=== PATIENT | female | born 1985 | race Caucasian/White ===

== ENCOUNTER 2023-06-21 14:51 | Emergency (ER) | payer OTHER, SELFPAY ==
[2023-06-21 15:00] VITALS: BP 155/108; PULSE 99; RESP 16; TEMP 37.2; O2SAT 998; BMI 43.3
[2023-06-21 15:09] VITALS: O2SAT 98
--- NOTE | 2023-06-21 15:17 | XR_ITS ---
The [address] [address] Patient Name: SARAH MATTHEWS MRN: [id number] date: 1985 Sex: F Assigned Patient Location: ED.MAIN Current Patient Location: Accession/Order Number: [id number] Exam Date: 06/21/2023 15:45 Report Date: 06/21/2023 16:47 At the request of: NIEVES HEATH Procedure: XR chest 1V EXAM: XR chest 1V HISTORY: cough COMPARISON: 08/08/2020 TECHNIQUE: Chest X-ray AP, 1 view FINDINGS: Support devices: None. Lungs/pleura: No consolidation, effusion, or pneumothorax. Heart and mediastinum: Normal contours. Bones: No acute abnormality identified. XR/XR chest 1V Impression: No radiographic evidence of acute cardiopulmonary process. Electronically authenticated by: FARSHAD MELENDEZ Date: 06/21/2023 16:47
[2023-06-21 15:32] LABS: Influenza Virus A Antigen Negative; Influenza Virus B Antigen Negative; Internal Control Within Normal Limits; SARS-CoV-2 Ag NEGATIVE (NEGATIVE)
[2023-06-21 15:53] VITALS: PULSE 89; O2SAT 95
[2023-06-21] MEDS: IPRATROPIUM/ALBUTEROL SULFATE 3 ML AMPUL.NEB IH (15:53)
[2023-06-21] MEDS: PREDNISONE 20 MG TABLET 40 MG PO (15:58)
--- NOTE | 2023-06-21 16:26 | ED_ITS ---
HPI - URI/Sore Throat General Chief Complaint: Upper Respiratory Infection Stated Complaint: COUGH Time Seen by Provider: 06/21/23 15:12 Source: patient History of Present Illness HPI Narrative: 38-year-old female presents here chief complaint of cough congestion. She states she's had symptoms cough congestion her 1st for cough causing her to gag and almost vomited due to harsh cough. She states she's had the symptoms for the past two weeks. Patient is currently afebrile. She states she had a inhaler in the past and still has a an albuterol inhaler at home.She is afebrile nontoxic. She is not hypoxic Patient denies smoking but states she is a remote family members and smoke. Related Data Previous Rx's Medication Instructions Recorded azithromycin 250 mg tablet See Rx Instructions PO .COMPLEX #6 06/21/23 (Zithromax Z-Dimas) tabs benzonatate 200 mg capsule 200 mg PO TID PRN cough #10 caps 06/21/23 prednisone 50 mg tablet 50 mg PO DAILY 3 days #3 tabs 06/21/23 Allergies Allergy/AdvReac Type Severity Reaction Status Date / Time No Known Drug Allergies Allergy Verified 06/21/23 15:05 Review of Systems ROS Narrative All Systems are negative except as noted/marked.All systems reviewed and otherwise negative Exam Narrative Exam Narrative: Nurses note and vital signs reviewed and patient is not hypoxic. General: The patient appears well and in no apparent distress. Patient is resting comfortably on cart. Skin: Warm, dry, no pallor noted. There is no rash noted. Head: Normocephalic, atraumatic Eye: Normal conjunctiva, no drainage, EOMI. PERRL Ears, Nose, Mouth, and Throat: oral mucosa is moist. Nares patent. Mouth without vesicles. Ear canals patent. Tm's without Erythema Cardiovascular: Regular Rate and Rhythm Respiratory: dry nonproductive cough, scattered expiratory wheezing Patient is in no distress, no accessory muscle use, Musculoskeletal: The patient has no evidence of calf tenderness, no pitting edema, symmetrical pulses noted bilaterally Neurological: A&O x4, normal speech Psychiatric: Cooperative Constitutional Vital Signs, click to edit/add: Last Vital Signs Temp 98.9 F 06/21/23 15:00 Pulse 89 06/21/23 15:53 Resp 16 06/21/23 15:00 BP 155/108 H 06/21/23 15:00 Pulse Ox 95 06/21/23 15:53 O2 Del Method Room Air 06/21/23 15:09 Course Vital Signs Vital signs: Vital Signs Temperature 98.9 F 06/21/23 15:00 Pulse Rate 99 H 06/21/23 15:00 Respiratory Rate 16 06/21/23 15:00 Blood Pressure 155/108 H 06/21/23 15:00 Pulse Oximetry 998 H 06/21/23 15:00 Oxygen Delivery Method Room Air 06/21/23 15:00 Temperature 98.9 F 06/21/23 15:00 Pulse Rate 89 06/21/23 15:53 Respiratory Rate 16 06/21/23 15:00 Blood Pressure 155/108 H 06/21/23 15:00 Pulse Oximetry 95 06/21/23 15:53 Oxygen Delivery Method Room Air 06/21/23 15:09 MDM - URI/Sore Throat MDM Narrative Medical decision making narrative: Patient presents today with upper respiratory cough congestion. Examination con sistent with bronchitis. X-ray shows no acute pneumonia. Patient's had the symptoms for greater than two weeks. She was medicated here with a DuoNeb breathing treatment and prednisone. She'll be discharged home with prescription of prednisone and Tessalon Perles. Patient is exposed to secondhand smoke she will be given a Z-Dimas and she's had the symptoms for greater than ten days. Patient verbalizes understanding resupply of care.Patient did have flu swab Coban swab obtained today which were negative. Differential Diagnosis Differential diagnosis: Likely upper respiratory infection, influenza and pharyngitis Medical Records Attestation: I reviewed the patient's medical records. Lab Data Attestation: I reviewed the patient's lab results. Labs: Lab Results 06/21/23 Range/Units 15:05 SARS-CoV-2 (PCR) Negative (NEGATIVE) Influenza Type A Ag Negative Influenza Type B Ag Negative Imaging Data Chest x-ray: Attestation: I have reviewed the pertinent imaging results. My impression: No active disease Discharge Plan Discharge Chief Complaint: Upper Respiratory Infection Clinical Impression: Upper respiratory infection, Bronchitis Patient Disposition: Home, Self-Care Time of Disposition Decision: 16:24 Condition: Good Prescriptions / Home Meds: New prednisone 50 mg tablet 50 mg PO DAILY 3 Days Qty: 3 0RF benzonatate 200 mg capsule 200 mg PO TID PRN (Reason: cough) Qty: 10 0RF azithromycin [Zithromax Z-Dimas] 250 mg tablet See Rx Instructions .ROUTE .COMPLEX Qty: 6 0RF Rx Instructions: For 250 mg dose pack: take 500 mg today (day 1), then 250 mg for 4 days (days 2-5) Instructions: Upper Respiratory Infection (ED), Acute Bronchitis (ED) Stand Alone Forms: Portal Instructions Referrals: Erasmo Tovar MD [Primary Care Provider] - 1 week
[2023-06-22 15:59] LABS: SARS-CoV-2 NAA NOT DETECTED (NOT DETECTE)
== END 2023-06-21 16:32 | disposition home or self-care (01) ==
PROVIDERS: Physician Assistant; Emergency Provider Emergency Medicine Emergency Medical Services; PCP Family Medicine
DX: J06.9 Acute upper respiratory infection, unspecified (principal); J40 Bronchitis, not specified as acute or chronic; Z20.822 Contact with and (suspected) exposure to COVID-19
CPT/HCPCS: 71045; 87635; 87804; 87811; 94640; 99284; J7512

== ENCOUNTER 2023-07-30 21:50 | Emergency (ER) | payer OTHER, SELFPAY ==
[2023-07-30] VITALS (15 sets, daily range): BP systolic 117–163; BP diastolic 82–106; PULSE 108–123; RESP 18–29; TEMP 36.8; O2SAT 95–98; BMI 43.5
--- OUTSIDE RECORDS SUMMARY | 2023-07-30 21:58 | XMS_ITS | CCD ---
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 [facility] Chart notes attached Questions completed Waiting for determination Elliott Prior Communications Engineer Endocrinology and Metabolism [place] Allergies As of Date: 07/14/2023 (No Known Allergies) Date Reviewed: 05/26/2023 Reviewed by: Micaela Laura MD - Fully Assessed Reason for Visit: Insurance Authorization [[id number]] Cmt: pasireotide pamoate (SIGNIFOR LAR) 10 mg susr Prescriptions as of 07/14/2023 - somatropin (GENOTROPIN) 0.6 mg/0.25 mL injection Inject 0.6 mg subcutaneously once daily. - pasireotide pamoate (SIGNIFOR LAR) 10 mg susr Inject 10 mg once every 4 weeks by IM injection - dexAMETHasone (DECADRON) 1 mg tablet Take dexamethasone 1 mg at bedtime and then get labs done the next morning - semaglutide, weight loss, (WEGOVY) 0.25 mg/0.5 mL pen injector Inject 0.5 mL subcutaneously one time a week. BMI 42.45 - lamoTRIgine (LAMICTAL) 25 mg tablet Take 4 tablets by mouth daily at bedtime. - busPIRone (BUSPAR) 7.5 mg tablet Take 2 tablets by mouth twice daily. - levothyroxine (SYNTHROID) 150 mcg tablet TAKE ONE TABLET BY MOUTH ONCE DAILY ON EMPTY STOMACH - Insulin [place], Disposable, (BD ULTRAFINE III MINI PEN) 31 gauge x 3/16 Use with genotropin Pen daily - osilodrostat (ISTURISA) 5 mg tablet 15 mg twice a day - Desogestrel-Ethinyl Estradiol (APRI) 0.15-0.03 mg per tablet Take 1 tablet by mouth once daily. - ketoconazole (NIZORAL) 2 % shampoo - PARoxetine (PAXIL) 20 mg tablet Take 20 mg by mouth once daily. - iv contrast (will be provided with radiology test) MRI Pituitary Inject, intravenously, once for 1 dose. No IV access, insert saline lock prior to the beginning of sedation, infusion, injection of imaging exam. Discontinue saline lock post exam. If Pt. has a central line or IVAD, may access for administration according to line specific nursing protocol. Once exam is complete flush line and de-access according to line specific nursing protocol in the MR contrast administration guidelines link. - MULTIVITAMIN ORAL Take 1 tablet by mouth once daily. Meds Comments as of 10/25/2015: 15 mg twice daily. Study drug [id number] Dose increased to 30 mg daily on 10/25/2015. 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/31/2014 S/P selective transsphenoidal pituitary adenome*12/31/2014 Status post gamma knife treatment [Z92.3] 12/31/2014 Examination of participant in clinical trial [Z*10/25/2015 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.8] 10/07/2016 KRIS (generalized anxiety disorder) [F41.1] 07/23/2021 Marijuana smoker [F12.90] 07/23/2021 Cysts of both ovaries [N83.201, N83.202] 07/25/2021 07/25/2021 Low grade squamous intraepithelial lesion (LGSI*09/17/2021 Encounter Status:Closed by ELLIOTT OLIVO on 07/14/23 [facility] 06-27-2023 CNPN Telephone (ENDOMN) ANGELA NGUYEN ([id number]) 1985 Date Time Provider Department 06/27/23 MICAELA LAURA ENDOMN During your visit today, we recorded the following information about you: Bright Day 06/27/2023 10:58 AM Signed [employer] rep called requesting a PA for Signifor LAR 10 mg via [employer] [phone] Mills# [id number] Bright [employer]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 Allergies As of Date: 06/27/2023 (No Known Allergies) Date Reviewed: 05/26/2023 Reviewed by: Micaela Laura MD - Fully Assessed Reason for Visit: Insurance Authorization [[id number]] Cmt: Signifor LAR 10 mg Prescriptions as of 07/01/2023 - somatropin (GENOTROPIN) 0.6 mg/0.25 mL injection Inject 0.6 mg subcutaneously once daily. - pasireotide pamoate (SIGNIFOR LAR) 10 mg susr Inject 10 mg once every 4 weeks by IM injection - dexAMETHasone (DECADRON) 1 mg tablet Take dexamethasone 1 mg at bedtime and then get labs done the next morning - semaglutide, weight loss, (WEGOVY) 0.25 mg/0.5 mL pen injector Inject 0.5 mL subcutaneously one time a week. BMI 42.45 - lamoTRIgine (LAMICTAL) 25 mg tablet Take 4 tablets by mouth daily at bedtime. - busPIRone (BUSPAR) 7.5 mg tablet Take 2 tablets by mouth twice daily. - levothyroxine (SYNTHROID) 150 mcg tablet TAKE ONE TABLET BY MOUTH ONCE DAILY ON EMPTY STOMACH - Insulin [place], Disposable, (BD ULTRAFINE III MINI PEN) 31 gauge x 3/16 Use with genotropin Pen daily - osilodrostat (ISTURISA) 5 mg tablet 15 mg twice a day - Desogestrel-Ethinyl Estradiol (APRI) 0.15-0.03 mg per tablet Take 1 tablet by mouth once daily. - ketoconazole (NIZORAL) 2 % shampoo - PARoxetine (PAXIL) 20 mg tablet Take 20 mg by mouth once daily. - iv contrast (will be provided with radiology test) MRI Pituitary Inject, intravenously, once for 1 dose. No IV access, insert saline lock prior to the beginning of sedation, infusion, injection of imaging exam. Discontinue saline lock post exam. If Pt. has a central line or IVAD, may access for administration according to line specific nursing protocol. Once exam is complete flush line and de-access according to line specific nursing protocol in the MR contrast administration guidelines link. - MULTIVITAMIN ORAL Take 1 tablet by mouth once daily. Meds Comments as of 10/25/2015: 15 mg twice daily. Study drug [id number] Dose increased to 30 mg daily on 10/25/2015. 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/31/2014 S/P selective transsphenoidal pituitary adenome*12/31/2014 Status post gamma knife treatment [Z92.3] 12/31/2014 Examination of participant in clinical trial [Z*10/25/2015 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 PA needed for Genotropin. I will start PA once script is signed. Refill encounter sent to Dr. Dov Pierre. Peggy [place] RN 06/27/2023 3:07 PM Signed Script signed by Dr. Dov Pierre. PA for Genotropin miniquick completed. I will fax once signed. Genotropin SMN will be completed once approved. Peggy [place] RN 07/01/2023 2:03 PM Signed PA completed on Cover My Meds: Peggy [place] RN 07/02/2023 1:47 PM Signed Genotropin approved by [employer]. Approval dates: 07/01/23 to 09/05/23. Pt instructed to notify us two weeks before the expiration so that we may submit for another preauth. Allergies As of Date: 06/26/2023 (No Known Allergies) Date Reviewed: 05/26/2023 Reviewed by: Micaela Laura MD - Fully Assessed Reason for Visit: 2023 growth hormone [Other] Prescriptions as of 07/02/2023 - somatropin (GENOTROPIN) 0.6 mg/0.25 mL injection Inject 0.6 mg subcutaneously once daily. - pasireotide pamoate (SIGNIFOR LAR) 10 mg susr Inject 10 mg once every 4 weeks by IM injection - dexAMETHasone (DECADRON) 1 mg tablet Take dexamethasone 1 mg at bedtime and then get labs done the next morning - semaglutide, weight loss, (WEGOVY) 0.25 mg/0.5 mL pen injector Inject 0.5 mL subcutaneously one time a week. BMI 42.45 - lamoTRIgine (LAMICTAL) 25 mg tablet Take 4 tablets by mouth daily at bedtime. - busPIRone (BUSPAR) 7.5 mg tablet Take 2 tablets by mouth twice daily. - levothyroxine (SYNTHROID) 150 mcg tablet TAKE ONE TABLET BY MOUTH ONCE DAILY ON EMPTY STOMACH - Insulin [place], Disposable, (BD ULTRAFINE III MINI PEN) 31 gauge x 16 Use with genotropin Pen daily - osilodrostat (ISTURISA) 5 mg tablet 15 mg twice a day - Desogestrel-Ethinyl Estradiol (APRI) 0.15-0.03 mg per tablet Take 1 tablet by mouth once daily. - ketoconazole (NIZORAL) 2 % shampoo - PARoxetine (PAXIL) 20 mg tablet Take 20 mg by mouth once daily. - iv contrast (will be provided with radiology test) MRI Pituitary Inject, intravenously, once for 1 dose. No IV access, insert saline lock prior to the beginning of sedation, infusion, injection of imaging exam. Discontinue saline lock post exam. If Pt. has a central line or IVAD, may access for administration according to line specific nursing protocol. Once exam is complete flush line and de-access according to line specific nursing protocol in the MR contrast administration guidelines link. - MULTIVITAMIN ORAL Take 1 tablet by mouth once daily. Meds Comments as of 10/25/2015: 15 mg twice daily. Study drug [id number] Dose increased to 30 mg daily on 10/25/2015. 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/31/2014 S/P selective transsphenoidal pituitary adenome*12/31/2014 Status post gamma knife treatment [Z92.3] 12/31/2014 Examination of participant in clinical trial [Z*10/25/2015 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.8] 10/07/2016 KRIS (generalized anxiety disorder) [F41.1] 07/23/2021 Marijuana smoker [F12.90] 07/23/2021 Cysts of both ovaries [N83.201, N83.202] 07/25/2021 07/25/2021 Low grade squamous intraepithelial lesion (LGSI*09/17/2021 Encounter Status:Closed by PEGGY ALLEN on 06/27/23 Normal [facility] CNPN Telephone (ENDOSO) PATRICKANGELA Clay ([id number]) 1985 F Date Time Provider Department 06/26/23 MICAELA LAURA During your visit today, we recorded the following information about you: Allergies As of Date: 06/26/2023 (No Known Allergies) Date Reviewed: 05/26/2023 Reviewed by: Micaela Laura MD - Fully Assessed Prescriptions as of 07/15/2023 - somatropin (GENOTROPIN) 0.6 mg/0.25 mL injection Inject 0.6 mg subcutaneously once daily. - pasireotide pamoate (SIGNIFOR LAR) 10 mg susr Inject 10 mg once every 4 weeks by IM injection - dexAMETHasone (DECADRON) 1 mg tablet Take dexamethasone 1 mg at bedtime and then get labs done the next morning - semaglutide, weight loss, (WEGOVY) 0.25 mg/0.5 mL pen injector Inject 0.5 mL subcutaneously one time a week. BMI 42.45 - lamoTRIgine (LAMICTAL) 25 mg tablet Take 4 tablets by mouth daily at bedtime. - busPIRone (BUSPAR) 7.5 mg tablet Take 2 tablets by mouth twice daily. - levothyroxine (SYNTHROID) 150 mcg tablet TAKE ONE TABLET BY MOUTH ONCE DAILY ON EMPTY STOMACH - Insulin [place], Disposable, (BD ULTRAFINE III MINI PEN) 31 gauge x 3/16 Use with genotropin Pen daily - osilodrostat (ISTURISA) 5 mg tablet 15 mg twice a day - Desogestrel-Ethinyl Estradiol (APRI) 0.15-0.03 mg per tablet Take 1 tablet by mouth once daily. - ketoconazole (NIZORAL) 2 % shampoo - PARoxetine (PAXIL) 20 mg tablet Take 20 mg by mouth once daily. - iv contrast (will be provided with radiology test) MRI Pituitary Inject, intravenously, once for 1 dose. No IV access, insert saline lock prior to the beginning of sedation, infusion, injection of imaging exam. Discontinue saline lock post exam. If Pt. has a central line or IVAD, may access for administration according to line specific nursing protocol. Once exam is complete flush line and de-access according to line specific nursing protocol in the MR contrast administration guidelines link. - MULTIVITAMIN ORAL Take 1 tablet by mouth once daily. Meds Comments as of 10/25/2015: 15 mg twice daily. Study drug [id number] Dose increased to 30 mg daily on 10/25/2015. 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/31/2014 S/P selective transsphenoidal pituitary adenome*12/31/2014 Status post gamma knife treatment [Z92.3] 12/31/2014 Examination of participant in clinical trial [Z*10/25/2015 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.8] 10/07/2016 KRIS (generalized anxiety disorder) [F41.1] 07/23/2021 Marijuana smoker [F12.90] 07/23/2021 Cysts of both ovaries [N83.201, N83.202] 07/25/2021 07/25/2021 Low grade squamous intraepithelial lesion (LGSI*09/17/2021 Encounter Status:Closed by PEGGY ALLEN on 07/15/23 [facility] 06-19-2023 [facility] HNO ID: [id number] Author: BLESSED COWAN RT(R) Service: Radiology Author Type: Sheet Metal Apprentice Type: Allied Health Filed: 06/19/2023 15:48 Note Text: Radiology Service Progress Note PATIENT NAME: Angela Nguyen DATE OF SERVICE: June 19, 2023 TIME: 3:47 PM PATIENT IDENTITY VERIFICATION COMPLETED USING TWO (2) IDENTIFIERS: Name and Date of confirmed by patient verbally and Name and Date of confirmed by identification band. FALL SCREENING: Has the patient had 2 falls in the last year or 1 fall with injury or currently using an Ambulatory Assistive Device (Walker, Cane, Wheelchair, Crutches, etc.)? No PATIENT GENDER DATA: Female. status: : No status: NO. PATIENT RELEVANT IMPLANT DATA REVIEWED: Yes RADIOLOGY DEPARTMENT: MR; Exam(s) Completed: Head: Pituitary With dynamic cor post PERIPHERAL IV DATA: Site assessment: Clean,Dry and Intact, Site disposition Discontinued SIGNED BY: Damon SIMMONS R RT Lizbet(R) June 19, 2023 3:47 PM [facility] MRI PITUITARY WO/W IVCONon 0 06-19-2023 MRI PITUITARY WO/W IVCON * * *Final Report* * * DATE OF EXAM: Jun 19 2023 4:34PM [facility] 0314 - MRI PITUITARY WO/W IVCON / PROCEDURE REASON: multiple diagnoses * * * * Physician Interpretation * * * * EXAMINATION: MRI PITUITARY WO/W IVCON CLINICAL HISTORY: 38 year old female with 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 TECHNIQUE: High resolution sagittal and coronal T1, coronal T2, and gadolinium enhanced, fat-suppressed sagittal and coronal T1-weighted images of the pituitary region. Contrast: 10 mL Dotarem IV COMPARISON: Pituitary MRI 03/06/2020. 10/05/2018. 04/04/2018. 04/02/2017. RESULT: Postop Changes: There are unchanged postoperative findings related to transsphenoidal surgery of a prior pituitary lesion. There is unchanged partially empty sella. Adenohypophysis: The adenohypophysis is uniformly hypointense on T1 and T2 and uniformly enhances following gadolinium administration. No evidence of an underlying mass. Neurohypophysis: The posterior pituitary gland is present and normal in size and location. The infundibulum is intact and normal in appearance. Suprasellar Region: No evidence of a suprasellar mass. The optic apparatus is normal in appearance. Cavernous Sinuses: The cavernous sinuses are normal in appearance. A normal flow void is noted in the carotid siphons suggesting patency by spin echo criteria. Brain Parenchyma: The overlying hypothalamus is normal in appearance. The visualized parenchyma is otherwise normal in signal intensity and morphology. Skull Base: No evidence of a marrow replacement process in the underlying skull base. IMPRESSION: No recurrent neoplasm. [place] Cleaner: PSCB Transcribe Date/Time: Jun 19 2023 5:40P Dictated by : JAX WALLACE MD This examination was interpreted and the report reviewed and electronically signed by: JAX WALLACE MD on Jun 19 2023 5:44PM EST [id number] Normal [facility] NURSING PROGon 06-19-2023 NURSING PROG HNO ID: [id number] Author: REX SKINNER RN Service: Radiology Author Type: Registered Nurse Type: Nursing Progress Note Filed: 06/19/2023 15:38 Note Text: Radiology Service Progress Note DATE OF SERVICE: June 19, 2023 TIME: 3:19 PM PATIENT WEIGHT: 245 LBS PATIENT IDENTITY VERIFICATION COMPLETED USING TWO (2) STANDARD IDENTIFIERS: Name and Date of confirmed by patient verbally and Name and Date of confirmed by identification band. FALL SCREENING: Has the patient had 2 falls in the last year or 1 fall with injury or currently using an Ambulatory Assistive Device (Walker, Cane, Wheelchair, Crutches, etc.)? No PATIENT GENDER DATA: Female. status: : No status: NO. ALLERGIES: Reviewed and unchanged CONTRAST ALLERGY: No EXAM: MRI - CONTRAST TYPE: GROUP II IV SITE: Ambulatory: A peripheral IV was started in the Right forearm with a Angio cath: 22 gauge. IV SITE APPEARANCE: Clean,Dry and Intact SIGNATURE: Rex Skinner RN PATIENT NAME: Angela Nguyen DATE: June 19, 2023 TIME: 3:19 PM [facility] CORTISOL SALIVAon 06-18-2023 CORTISOL, SALIVA 0.158 ug/dL Normal [facility] Comment on above: Order Comment: Speci men Type: SWABOrdering Facility: [facility] Address: [address] [place], [place] [id number] Result Comment: Refe rence Intervals: Cortisol, Saliva 7 a.m. to 9 a.m.: 0.1-0.75 ug/dL 3 p.m. to 5 p.m.: <0.401 ug/dL 11 p.m. to midnight: <0.1 ug/dL Performed By: [facility] [address] [place] [address] Coverstitch Machine Operator: Nayan Cornell MD, PhD CLIA Number: [id number] Performed By: #### S LATRICE ####[facility] [id number] [place] [address] CORTISOL SALIVAon 06-17-2023 CORTISOL, SALIVA 0.612 ug/dL Normal [facility] Comment on above: Order Comment: Speci men Type: BLOOD SPECIMEN [facility] Address: [address] [place] [address] Result Comment: [facility] contamination is suspected, likely due to an exogenous source of cortisol (e.g., topical or oral hydrocortisone) or similar. Recollection following strict adherence to collection protocols is recommended. Reference Intervals: Cortisol, Saliva 7 a.m. to 9 a.m.: 0.1-0.75 ug/dL 3 p.m. to 5 p.m.: <0.401 ug/dL 11 p.m. to midnight: <0.1 ug/dL Performed By: [facility] [address] [place] [address] Coverstitch Machine Operator: Nayan Cornell MD, PhD CLIA Number: [id number] Performed By: #### I LGF1 #### [facility] CLIA [id number] [address] [place], [place] [id number] [place] Juan David 06-10-2023 [facility] Telephone (ENDOMN) RIKE,ANGELA Danna ([id number]) 1985 F Date Time Provider Department 06/10/23 MICAELA LAURA ENDOMN During your visit today, we recorded the following information about you: Leobardo John 06/10/2023 4:05 PM Signed Initiated PA for Wegovy through [employer] via [facility] Waiting for next steps Questions completed Waiting for determination -No PA Required Peggy [place], RN 06/26/2023 11:32 AM Signed Pt sent My Chart message regarding status of Wegovy. I called [facility] ( Ref # [id number] to determine what no PA needed meant. Per rep Wegovy has no PA status and therefore is not a covered benefit. Dr. Dov Pierre, please advise how you would like to move forward since Wegovy is not covered. Micaela Laura MD 06/26/2023 4:47 PM Signed Addended by: MICAELA LAURA on: 06/26/2023 04:47 PM Modules accepted: Laura Abraham 06/27/2023 2:06 PM Signed Patient is scheduled with Dr. Vora on 08/08/2023 @ 8:00 AM. Allergies As of Date: 06/10/2023 (No Known Allergies) Date Reviewed: 05/26/2023 Reviewed by: Micaela Laura MD - Fully Assessed Reason for Visit: Medication Preauthorization [[id number]] Cmt: Wegovy Primary Visit Diagnosis:Class 3 severe obesity due to excess calories with serious comorbidity and body mass index (BMI) of 40.0 to 44.9 in adult (HCC) [E66.01, Z68.41] Order(s):ENDOCRINE MEDICAL WEIGHT MANAGEMENT [[id number]] Order #: [id number]: 1 FUTURE Prescriptions as of 06/27/2023 - somatropin (GENOTROPIN) 0.6 mg/0.25 mL injection Inject 0.6 mg subcutaneously once daily. - pasireotide pamoate (SIGNIFOR LAR) 10 mg susr Inject 10 mg once every 4 weeks by IM injection - dexAMETHasone (DECADRON) 1 mg tablet Take dexamethasone 1 mg at bedtime and then get labs done the next morning - semaglutide, weight loss, (WEGOVY) 0.25 mg/0.5 mL pen injector Inject 0.5 mL subcutaneously one time a week. BMI 42.45 - lamoTRIgine (LAMICTAL) 25 mg tablet Take 4 tablets by mouth daily at bedtime. - busPIRone (BUSPAR) 7.5 mg tablet Take 2 tablets by mouth twice daily. - levothyroxine (SYNTHROID) 150 mcg tablet TAKE ONE TABLET BY MOUTH ONCE DAILY ON EMPTY STOMACH - Insulin [place], Disposable, (BD ULTRAFINE III MINI PEN) 31 gauge x 3/16 Use with genotropin Pen daily - osilodrostat (ISTURISA) 5 mg tablet 15 mg twice a day - Desogestrel-Ethinyl Estradiol (APRI) 0.15-0.03 mg per tablet Take 1 tablet by mouth once daily. - ketoconazole (NIZORAL) 2 % shampoo - PARoxetine (PAXIL) 20 mg tablet Take 20 mg by mouth once daily. - iv contrast (will be provided with radiology test) MRI Pituitary Inject, intravenously, once for 1 dose. No IV access, insert saline lock prior to the beginning of sedation, infusion, injection of imaging exam. Discontinue saline lock post exam. If Pt. has a central line or IVAD, may access for administration according to line specific nursing protocol. Once exam is complete flush line and de-access according to line specific nursing protocol in the MR contrast administration guidelines link. - MULTIVITAMIN ORAL Take 1 tablet by mouth once daily. Meds Comments as of 10/25/2015: 15 mg twice daily. Study drug [id number] Dose increased to 30 mg daily on 10/25/2015. 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/2014 S/P selective transsphenoidal pituitary adenome*12/31/2014 Status post gamma knife treatment [Z92.3] 12/31/2014 Examination of participant in clinical trial [Z*10/25/2015 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.8] 10/07/2016 KRIS (generalized anxiety disorder) [F41.1] 07/23/2021 Marijuana smoker [F12.90] 07/23/2021 Cysts of both ovaries [N83.201, N83.202] 07/25/2021 07/25/2021 Low grade squamous intraepithelial lesion (LGSI*09/17/2021 Encounter Status:Closed by LEOBARDO JOHN on 06/10/23 Normal [facility] CORTISOL SALIVAon 06-10-2023 CORTISOL, SALIVA 0.151 ug/dL Normal [facility] Comment on above: Order Comment: Speci men Type: SWABOrdering Facility: [facility] Address: [address] [place] [address] Result Comment: Refe rence Intervals: Cortisol, Saliva 7 a.m. to 9 a.m.: 0.1-0.75 ug/dL 3 p.m. to 5 p.m.: <0.401 ug/dL 11 p.m. to midnight: <0.1 ug/dL Performed By: [facility] Mobile [address] [id number] Coverstitch Machine Operator: Nayan Cornell MD, PhD CLIA Number: [id number] Performed By: #### S LATRICE ####[facility] [id number] [place] [address] Juan David 05-30-2023 CNPN Telephone (ENDOMN) ANGELA NGUYEN ([id number]) 1985 F Date Time Provider Department 05/30/23 MICAELA LAURA ENDOMN During your visit today, we recorded the following information about you: Yoni Cohen 05/30/2023 11:18 AM Signed Received a prior authorization request from [facility] via [employer] for patient's prescription: semaglutide, weight loss, (WEGOVY) 0.25 mg/0.5 mL pen injector [employer]: [id number] Submitted request via fax to Endocrine Prior Authorizations. Transmitted successfully. YAS URIARTE Recycling Crew Supervisor II Endocrinology AND Metabolism [place] [facility] X-20 Allergies As of Date: 05/30/2023 (No Known Allergies) Date Reviewed: 05/26/2023 Reviewed by: Micaela Laura MD - Fully Assessed Reason for Visit: Insurance Authorization [[id number]] Cmt: Semaglutide, weight loss, (WEGOVY) 0.25 mg/0.5 mL pen injector [INSURANCE] Prescriptions as of 05/30/2023 - semaglutide, weight loss, (WEGOVY) 0.25 mg/0.5 mL pen injector Inject 0.5 mL subcutaneously one time a week. BMI 42.45 - dexAMETHasone (DECADRON) 1 mg tablet Take dexamethasone 1 mg at bedtime and then get labs done the next morning - lamoTRIgine (LAMICTAL) 25 mg tablet Take 4 tablets by mouth daily at bedtime. - busPIRone (BUSPAR) 7.5 mg tablet Take 2 tablets by mouth twice daily. - levothyroxine (SYNTHROID) 150 mcg tablet TAKE ONE TABLET BY MOUTH ONCE DAILY ON EMPTY STOMACH - Insulin [place], Disposable, (BD ULTRAFINE III MINI PEN) 31 gauge x 3/16 Use with genotropin Pen daily - osilodrostat (ISTURISA) 5 mg tablet 15 mg twice a day - Desogestrel-Ethinyl Estradiol (APRI) 0.15-0.03 mg per tablet Take 1 tablet by mouth once daily. - ketoconazole (NIZORAL) 2 % shampoo - PARoxetine (PAXIL) 20 mg tablet Take 20 mg by mouth once daily. - iv contrast (will be provided with radiology test) MRI Pituitary Inject, intravenously, once for 1 dose. No IV access, insert saline lock prior to the beginning of sedation, infusion, injection of imaging exam. Discontinue saline lock post exam. If Pt. has a central line or IVAD, may access for administration according to line specific nursing protocol. Once exam is complete flush line and de-access according to line specific nursing protocol in the MR contrast administration guidelines link. - MULTIVITAMIN ORAL Take 1 tablet by mouth once daily. Meds Comments as of 10/25/2015: 15 mg twice daily. Study drug [id number] Dose increased to 30 mg daily on 10/25/2015. 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] 12/31/2014 Hypophysectomy-induced hypopituitarism (HCC) [E*12/31/2014 S/P selective transsphenoidal pituitary adenome*12/31/2014 Status post gamma knife treatment [Z92.3] 12/31/2014 Examination of participant in clinical trial [Z*10/25/2015 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.8] 10/07/2016 KRIS (generalized anxiety disorder) [F41.1] 07/23/2021 Marijuana smoker [F12.90] 07/23/2021 Cysts of both ovaries [N83.201, N83.202] 07/25/2021 07/25/2021 Low grade squamous intraepithelial lesion (LGSI*09/17/2021 Encounter Status:Closed by YONI COHEN on 05/30/23 [facility] CNOVon 05-26-2023 CNOV Office Visit (ENDOSO ) ANGELA NGUYEN ([id number]) 1985 F Date Time Provider Department 05/26/23 10:20 AM MICAELA LAURA During your visit today, we recorded the following information about you: Pulse Respiration Blood pressure Weight 99/minute 16/minute 156/97 112.2 kg Last Period 05/17/23 Micaela Laura MD 05/26/2023 10:55 AM Signed Endocrinology Diabetes Follow Up Angela Nguyen, office visit for follow up of: Jensen's disease Last visit: 04/2023 PCP is Roberto Nolasco MD Has google duo History of Present Illness Angela Nguyen is a 38 year old female with 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, 2003) and gamma knife radiation (2004) with persistent [place] now controlled on osilodrostat, secondary hypothyroidism, secondary amenorrhea and Obesity, here for follow up ONEILL stable - Come and go (not on medical therapy for it) No changes in vision No changes in striae Hirsutism - worse lately OCP did not help Gained 20 lbs in the past month 1 mg DST not suppressed 24 hour urine cortisol WNL She will be completing the salivary cortisol and MRI soon Has not been able to continue with the Genotropin (approved but has not received the prescription yet) On Isturisa - on 15 mg BID LT4 150 mcg daily and OCP daily DEXA scan in 05/2020 WNL Norditropin not covered Started on Genotropin 0.4 mg daily - insurance did not cover the 0.6 Had COVID-19 in 06/2020 - had poor appettisandro Has lost 24 pounds since Grandfather from COVID-19 (vaccinated) Cousin from a heat stroke Dx with ovarian cyst removed in 07/2021 - benign She has noticed significant improvement in energy, weight, muscle mass, and mood Stopping the genotropin has caused detrimental effect on her body composition and metabolic parameters Bone density in 05/2020 was WNL Acne not as bad Hair loss and hirsutism slightly worse on osilodrostat Dx after abnormal weight gain and secondary amenorrhea around age 17 years (2002) Saw Endocrinology at [place] who referred her to Pediatric Endo at [facility] She has been followed by Drs. Hancock and Robert over the past few years Treated with LCI 699 (osilodrostat) as part of a clinical trial since 2012 with good response Currently on 15 mg twice a day Drug now approved by the FDA Also on LT4 150 mcg daily Could not tolerate ketoconazole (elevated liver enzymes) - stopped in 2012 Was on contraception initially for the XXP310 study Had an abnormal Argenine/GHRH stimulation test consistent with severe GH deficiency Was on Neutropin that she stopped prior to 2013 due to cost and insurance coverage BMD WNL in 09/2005 and in 05/2020 Hx of elevated DHEAS with normal testosterone which may be secondary to [place] disease or underlying PCOS Tried depo-porvera - stopped due to side effects Menstrual cycles were irregular in the past Current medications: Levothyroxine 150 mcg daily Osilodrostat: 15 mg BID Paxil 20 mg OD Multivitamin FHx: DM2: Paternal GM 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) History of ovarian cystectomy 07/25/2021 bilateral History of right salpingectomy 07/25/2021 Irregular menstrual cycle Irregular periods Low grade squamous intraepithelial lesion (LGSIL) on cervical Pap smear Obesity, unspecified Polycystic ovaries PAST SURGICAL HISTORY Procedure Laterality Date ENDOCERVICAL CURETTAGE 03/16/2021 HYPOPHYSEC/EXC PITUITARY MIGUELINA TRANSNASAL/SEPTAL 07/2003 Transphenoidal hypophys HYPOPHYSEC/EXC PITUITARY MIGUELINA TRANSNASAL/SEPTAL 12/2003 Transphenoidal hypophys LEEP PROCEDURE ([facility] & PRESIDENT DEPT)_*FL 06/07/2010 MRI GAMMA KNIFE LOCAL WWO CONT 2005 pituitary for cushings OVARIAN CYSTECTOMY Bilateral 07/25/2021 serous cystoadenoma SALPINGECTOMY Right 07/25/2021 laparoscopic with excision of bilateral cysts VAGINOSCOPY 03/26/2021 Current Outpatient Medications Medication Sig Dispense Refill dexAMETHasone (DECADRON) 1 mg tablet Take dexamethasone 1 mg at bedtime and then get labs done the next morning 1 tablet 0 lamoTRIgine (LAMICTAL) 25 mg tablet Take 4 tablets by mouth daily at bedtime. busPIRone (BUSPAR) 7.5 mg tablet Take 2 tablets by mouth twice daily. levothyroxine (SYNTHROID) 150 mcg tablet TAKE ONE TABLET BY MOUTH ONCE DAILY ON EMPTY STOMACH 90 tablet 3 Insulin [place], Disposable, (BD ULTRAFINE III MINI PEN) 31 gauge x 3/16 Use with genotropin Pen daily 500 Each 3 osilodrostat (ISTURISA) 5 mg tablet 15 mg twice a day 540 tablet 3 Desogestrel-Ethinyl Estradiol (APRI) 0.15-0.03 mg per tablet Take 1 tablet by mouth once daily. 84 tablet 4 ketoconazole (NIZORAL) 2 % shampoo PARoxetine (PAXIL) 20 mg tablet Take 20 (more content not included)... Normal [facility] ACTH Plas-mCncon 05-19-2023 Corticotropin (P) [Mass/Vol] 279.1 pg/mL High 7.2-63.3 [facility] Comment on above: Order Comment: Speci men Type: BLOOD SPECIMENOrdering Facility: [facility] Address: [address] [place] [address] Result Comment: ACTH Reference Range: 7-10 am: 7.2 - 63.3 pg/mL Performed By: #### 2 141-0 ####[facility] [id number] [address] [facility] CREATININE 24 HR URon 2022 Creatinine (24H U) [Mass/Time] 1.814 g/24 hr High 0.800-1.800 [facility] Comment on above: Order Comment: Speci men Type: TIMED URINE SPECIMENOrdering Facility: [facility] Address: [address] [place] [address] Performed By: #### U CRD ####[facility] [id number] [address] LABCLIA [id number] [place] [address] PERIOD (HRS) 24 hr Normal [facility] Comment on above: Order Comment: Speci men Type: TIMED URINE SPECIMENOrdering Facility: [facility] Address: [address] [place] [address] Performed By: #### U CRD ####[facility] [id number] [address] [id number] [facility] LABCLIA [id number] [address] [id number] Specimen volume (24H U) 1.4 L Normal [facility] Comment on above: Order Comment: Speci men Type: TIMED URINE SPECIMENOrdering Facility: [facility] Address: [address] [place] [address] Performed By: #### U CRD ####[facility] [id number] [address] LABCLIA [id number] [place] [address] Cortis Fernando-Simonon 05-19-20 Cortisol [Mass/Vol] 7.6 ug/dL Normal 4.8-19.5 [facility] Comment on above: Order Comment: Speci men Type: BLOOD SPECIMENOrdering Facility: [facility] Address: [address] [place] [address] Result Comment: Prov ided reference range is from 6-10 AM sample collection time. Cortisol Reference Range: 6-10 AM = 4.8-19.5 ug/dL, 4-8 PM = 2.5-11.9 ug/dL Performed By: #### 2 143-6 ####[facility] [id number] [place] [address] [place] DEXAMETHASONEon 05-19-2023 DEXAMETHASONE 445.9 ng/dL Normal [facility] Comment on above: Order Comment: Speci men Type: BLOOD SPECIMENOrdering Facility: [facility] Address: [address] [place] [address] Result Comment: INTE RPRETIVE INFORMATION: Dexamethasone, Serum or Plasma by LC-MS/MS Adults baseline: Less than 50 ng/dL 8:00 AM draw following 1 mg dexamethasone between 11:00 pm and 12:00 am the previous evenin - 295 ng/dL 8:00 AM draw following 8 mg dexamethasone (4 x 2 mg doses) between 11:00 pm and 12:00 am the previous evenin - 2850 ng/dL This test was developed and its performance characteristics determined by [facility]. It has not been cleared or approved by the US Food and Drug Administration. This test was performed in a CLIA certified laboratory and is intended for clinical purposes. Performed By: [facility] [address] [place] [address] Coverstitch Machine Operator: Nayan Cornell MD, PhD CLIA Number: [id number] Performed By: #### D EXA ####[facility] [id number] [place] [address] URINE FREE CORTISOL BY LC-MS /MSon 05-19-2023 CORTISOL UG/G ANIMAL SHELTER CLERK, UR (UFRCRT) 5.28 ug/g ANIMAL SHELTER CLERK Normal [facility] Comment on above: Order Comment: Speci men Type: TIMED URINE SPECIMENOrdering Facility: [facility] Address: [address] [place] [address] Result Comment: Refe rence Interval: Cortisol ug/g pantry cook Female Prepubertal: Less than 25 ug/g pantry cook 18 years and older: Less than 24 ug/g pantry cook : Less than 59 ug/g pantry cook Male Prepubertal: Less than 25 ug/g pantry cook 18 years and older: Less than 32 ug/g pantry cook Performed By: #### U FRCRT ####[facility] [id number] [place] [address] CREATININE UR, PER 24H 1848 mg/d High 700-1600 [facility] Comment on above: Order Comment: Speci men Type: TIMED URINE SPECIMENOrdering Facility: [facility] Address: [address] [place] [address] Performed By: #### U FRCRT ####[facility] [id number] [place] [address] CREATININE UR, PER VOLUME 132 mg/dL Normal [facility] Comment on above: Order Comment: Speci men Type: TIMED URINE SPECIMENOrdering Facility: [facility] Address: [address] [place] [address] Performed By: #### U FRCRT ####[facility] [id number] [place] [address] FREE CORTISOL UG/DAY, URINE 9.8 ug/d Normal <=45.0 [facility] Comment on above: Order Comment: Speci men Type: TIMED URINE SPECIMENOrdering Facility: [facility] Address: [address] [place] [address] Performed By: #### U FRCRT ####[facility]IES[facility]IA [id number] [place] [address] FREE CORTISOL UG/L, URINE 6.97 ug/L Normal [facility] Comment on above: Order Comment: Speci men Type: TIMED URINE SPECIMENOrdering Facility: [facility] Address: [address] [place] [address] Performed By: #### U FRCRT ####[facility]IES[facility]IA [id number] [place] [address] HOURS COLLECTED 24 hr Normal [facility] Comment on above: Order Comment: Speci men Type: TIMED URINE SPECIMENOrdering Facility: [facility] Address: [address] [place] [address] Result Comment: Per 24h calculations are provided to aid interpretation for collections with a duration of 24 hours and an average daily urine volume. For specimens with notable deviations in collection time or volume, ratios of analytes to a corresponding urine creatinine concentration may assist in result interpretation. Performed By: #### U FRCRT ####[facility]IA [id number] [place] [address] TOTAL VOLUME 1400 mL Normal [facility] Comment on above: Order Comment: Speci men Type: TIMED URINE SPECIMENOrdering Facility: [facility] Address: [address] [place] [address] Performed By: #### U FRCRT ####[facility]IA [id number] [place] [address] UR LATRICE FREE INTERP See Note Normal [facility] Comment on above: Order Comment: Speci men Type: TIMED URINE SPECIMENOrdering Facility: [facility] Address: [address], [place] [address] Result Comment: INTE RPRETIVE INFORMATION: Cortisol Urine Free by LC-MS/MS Access complete set of age- and/or gender-specific reference intervals for this test in the [employer] [facility] Test Directory ([employer]). This test was developed and its performance characteristics determined by [facility]. It has not been cleared or approved by the US Food and Drug Administration. This test was performed in a CLIA certified laboratory and is intended for clinical purposes. Performed By: [facility] [address] [id number] Coverstitch Machine Operator: Nayan Cornell MD, PhD CLIA Number: [id number] Performed By: #### U FRCRT ####[facility] [id number] [place] [id number] CNPIrene 04-23-20[facility]) ANGEL[facility] NGUY[facility] ([id number]) 1985 F Date Time Provider Department 04/23/23 PADMINI PEREZ ENDOMN During your visit today, we recorded the following information about you: Padmini Perez MD 04/23/2023 1:55 PM Signed Please mail the patient 3 salivates with instructions for midnight saliva cortisol collection. Thank you very much! MD Hill Segura Tiffany, RN 04/23/2023 2:25 PM Signed 3 salivary cortisol kits in mail for patient with return back kit. Thanks, HARRIET Hopkins RN [facility] Allergies As of Date: 04/23/2023 (No Known Allergies) Date Reviewed: 02/10/2023 Reviewed by: Micaela Laura MD - Fully Assessed Prescriptions as of 05/20/2023 - dexAMETHasone (DECADRON) 1 mg tablet Take dexamethasone 1 mg at bedtime and then get labs done the next morning - lamoTRIgine (LAMICTAL) 25 mg tablet Take 4 tablets by mouth daily at bedtime. - busPIRone (BUSPAR) 7.5 mg tablet Take 2 tablets by mouth twice daily. - levothyroxine (SYNTHROID) 150 mcg tablet TAKE ONE TABLET BY MOUTH ONCE DAILY ON EMPTY STOMACH - Insulin [place], Disposable, (BD ULTRAFINE III MINI PEN) 31 gauge x 3/16 Use with genotropin Pen daily - osilodrostat (ISTURISA) 5 mg tablet 15 mg twice a day - Desogestrel-Ethinyl Estradiol (APRI) 0.15-0.03 mg per tablet Take 1 tablet by mouth once daily. - ketoconazole (NIZORAL) 2 % shampoo - PARoxetine (PAXIL) 20 mg tablet Take 20 mg by mouth once daily. - iv contrast (will be provided with radiology test) MRI Pituitary Inject, intravenously, once for 1 dose. No IV access, insert saline lock prior to the beginning of sedation, infusion, injection of imaging exam. Discontinue saline lock post exam. If Pt. has a central line or IVAD, may access for administration according to line specific nursing protocol. Once exam is complete flush line and de-access according to line specific nursing protocol in the MR contrast administration guidelines link. - MULTIVITAMIN ORAL Take 1 tablet by mouth once daily. Meds Comments as of 10/25/2015: 15 mg twice daily. Study drug [id number] Dose increased to 30 mg daily on 10/25/2015. 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/31/2014 S/P selective transsphenoidal pituitary adenome*12/31/2014 Status post gamma knife treatment [Z92.3] 12/31/2014 Examination of participant in clinical trial [Z*10/25/2015 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.8] 10/07/2016 KRIS (generalized anxiety disorder) [F41.1] 07/23/2021 Marijuana smoker [F12.90] 07/23/2021 Cysts of both ovaries [N83.201, N83.202] 07/25/2021 07/25/2021 Low grade squamous intraepithelial lesion (LGSI*09/17/2021 Encounter Status:Closed by PADMINI MAGANA [facility] 05/20/23 [facility] Tele[facility] (ENDOSO) ANGELA NGUYEN ([id number]) 1985 F Date Time Provider Department 03/21/23 MICAELA LAURA ENDOSO During your visit today, we recorded the following information about you: Micaela Laura MD 03/21/2023 3:01 PM Signed Please help schedule at the pituitary clinic for jensen disease Thank you! LE Allergies As of Date: 03/21/2023 (No Known Allergies) Date Reviewed: 02/10/2023 Reviewed by: Micaela Laura MD - Fully Assessed Reason for Visit: Appointment [186] Prescriptions as of 03/21/2023 - lamoTRIgine (LAMICTAL) 25 mg tablet Take 4 tablets by mouth daily at bedtime. - busPIRone (BUSPAR) 7.5 mg tablet Take 2 tablets by mouth twice daily. - somatropin (GENOTROPIN) 0.6 mg/0.25 mL injection Inject 0.6 mg subcutaneously once daily. - levothyroxine (SYNTHROID) 150 mcg tablet TAKE ONE TABLET BY MOUTH ONCE DAILY ON EMPTY STOMACH - Insulin [place], Disposable, (BD ULTRAFINE III MINI PEN) 31 gauge x 3/16 Use with genotropin Pen daily - osilodrostat (ISTURISA) 5 mg tablet 15 mg twice a day - Desogestrel-Ethinyl Estradiol (APRI) 0.15-0.03 mg per tablet Take 1 tablet by mouth once daily. - acetaminophen (TYLENOL) 325 mg tablet Take 2 tablets by mouth every 6 hours as needed for pain. - ibuprofen (MOTRIN) 600 mg tablet Take 1 tablet by mouth every 6 hours as needed for pain. Take with food. - ketoconazole (NIZORAL) 2 % shampoo - PARoxetine (PAXIL) 20 mg tablet Take 20 mg by mouth once daily. - iv contrast (will be provided with radiology test) MRI Pituitary Inject, intravenously, once for 1 dose. No IV access, insert saline lock prior to the beginning of sedation, infusion, injection of imaging exam. Discontinue saline lock post exam. If Pt. has a central line or IVAD, may access for administration according to line specific nursing protocol. Once exam is complete flush line and de-access according to line specific nursing protocol in the MR contrast administration guidelines link. - MULTIVITAMIN ORAL Take 1 tablet by mouth once daily. Meds Comments as of 10/25/2015: 15 mg twice daily. Study drug [id number] Dose increased to 30 mg daily on 10/25/2015. 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/31/2014 S/P selective transsphenoidal pituitary adenome*12/31/2014 Status post gamma knife treatment [Z92.3] 12/31/2014 Examination of participant in clinical trial [Z*10/25/2015 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.8] 10/07/2016 KRIS (generalized anxiety disorder) [F41.1] 07/23/2021 Marijuana smoker [F12.90] 07/23/2021 Cysts of both ovaries [N83.201, N83.202] 07/25/2021 07/25/2021 Low grade squamous intraepithelial lesion (LGSI*09/17/2021 Encounter Status:Closed by MICAELA LAURA on 03/21/23 Normal [facility] ACTH Plas-mCncon 03-20-2023 Corticotropin (P) [Mass/Vol] 205.4 pg/mL High 7.2-63.3 [facility] Comment on above: Order Comment: Speci men Type: BLOOD SPECIMEN [facility] Address: [address] [place] [address] Result Comment: ACTH Reference Range: 7-10 am: 7.2 - 63.3 pg/mL Performed By: #### I LGF1 #### [facility] CLIA [id number] [address] [place] [address] CNPNon 03-11-2023 CNPN Telephone (EMQ) ANGELA NGUYEN ([id number]) 1985 F Date Time Provider Department 03/11/23 MICAELA LAURA EMQ During your visit today, we recorded the following information about you: Elliott Olivo 03/11/2023 11:18 AM Signed somatropin (GENOTROPIN) 0.6 mg/0.25 mL injection has been approved Notified patient through [facility] [employer] Prior Communications Engineer Endocrinology and Metabolism [place] Allergies As of Date: 03/11/2023 (No Known Allergies) Date Reviewed: 02/10/2023 Reviewed by: Micaela Laura MD - Fully Assessed Reason for Visit: Insurance Authorization [[id number]] Cmt: somatropin (GENOTROPIN) 0.6 mg/0.25 mL injection Approval Prescriptions as of 03/11/2023 - lamoTRIgine (LAMICTAL) 25 mg tablet Take 4 tablets by mouth daily at bedtime. - busPIRone (BUSPAR) 7.5 mg tablet Take 2 tablets by mouth twice daily. - somatropin (GENOTROPIN) 0.6 mg/0.25 mL injection Inject 0.6 mg subcutaneously once daily. - levothyroxine (SYNTHROID) 150 mcg tablet TAKE ONE TABLET BY MOUTH ONCE DAILY ON EMPTY STOMACH - Insulin [place], Disposable, (BD ULTRAFINE III MINI PEN) 31 gauge x 3/16 Use with genotropin Pen daily - osilodrostat (ISTURISA) 5 mg tablet 15 mg twice a day - Desogestrel-Ethinyl Estradiol (APRI) 0.15-0.03 mg per tablet Take 1 tablet by mouth once daily. - acetaminophen (TYLENOL) 325 mg tablet Take 2 tablets by mouth every 6 hours as needed for pain. - ibuprofen (MOTRIN) 600 mg tablet Take 1 tablet by mouth every 6 hours as needed for pain. Take with food. - ketoconazole (NIZORAL) 2 % shampoo - PARoxetine (PAXIL) 20 mg tablet Take 20 mg by mouth once daily. - iv contrast (will be provided with radiology test) MRI Pituitary Inject, intravenously, once for 1 dose. No IV access, insert saline lock prior to the beginning of sedation, infusion, injection of imaging exam. Discontinue saline lock post exam. If Pt. has a central line or IVAD, may access for administration according to line specific nursing protocol. Once exam is complete flush line and de-access according to line specific nursing protocol in the MR contrast administration guidelines link. - MULTIVITAMIN ORAL Take 1 tablet by mouth once daily. Meds Comments as of 10/25/2015: 15 mg twice daily. Study drug [id number] Dose increased to 30 mg daily on 10/25/2015. 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/2014 S/P selective transsphenoidal pituitary adenome*12/31/2014 Status post gamma knife treatment [Z92.3] 12/31/2014 Examination of participant in clinical trial [Z*10/25/2015 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.8] 10/07/2016 KRIS (generalized anxiety disorder) [F41.1] 07/23/2021 Marijuana smoker [F12.90] 07/23/2021 Cysts of both ovaries [N83.201, N83.202] 07/25/2021 07/25/2021 Low grade squamous intraepithelial lesion (LGSI*09/17/2021 Encounter Status:Closed by ELLIOTT OLIVO on 03/11/23 [facility] 03-10-2023 CNPN Telephone (EMQ) ANGELA NGUYEN ([id number]) 1985 F Date Time Provider Department 03/10/23 MICAELA LAURA EMQ During your visit today, we recorded the following information about you: Elliott Olivo 03/10/2023 6:33 PM Signed Initiated PA for through somatropin (GENOTROPIN) 0.6 mg/0.25 mL injection through [facility] via Covermymed Chart notes attached Questions completed Waiting for determination Elliott 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 - busPIRone (BUSPAR) 7.5 mg tablet Take 2 tablets by mouth twice daily. - somatropin (GENOTROPIN) 0.6 mg/0.25 mL injection Inject 0.6 mg subcutaneously once daily. - levothyroxine (SYNTHROID) 150 mcg tablet TAKE ONE TABLET BY MOUTH ONCE DAILY ON EMPTY STOMACH - Insulin [place], Disposable, (BD ULTRAFINE III MINI PEN) 31 gauge x 3/16 Use with genotropin Pen daily - osilodrostat (ISTURISA) 5 mg tablet 15 mg twice a day - Desogestrel-Ethinyl Estradiol (APRI) 0.15-0.03 mg per tablet Take 1 tablet by mouth once daily. - acetaminophen (TYLENOL) 325 mg tablet Take 2 tablets by mouth every 6 hours as needed for pain. - ibuprofen (MOTRIN) 600 mg tablet Take 1 tablet by mouth every 6 hours as needed for pain. Take with food. - ketoconazole (NIZORAL) 2 % shampoo - PARoxetine (PAXIL) 20 mg tablet Take 20 mg by mouth once daily. - iv contrast (will be provided with radiology test) MRI Pituitary Inject, intravenously, once for 1 dose. No IV access, insert saline lock prior to the beginning of sedation, infusion, injection of imaging exam. Discontinue saline lock post exam. If Pt. has a central line or IVAD, may access for administration according to line specific nursing protocol. Once exam is complete flush line and de-access according to line specific nursing protocol in the MR contrast administration guidelines link. - MULTIVITAMIN ORAL Take 1 tablet by mouth once daily. Meds Comments as of 10/25/2015: 15 mg twice daily. Study drug [id number] Dose increased to 30 mg daily on 10/25/2015. 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*12/31/2014 Status post gamma knife treatment [Z92.3] 12/31/2014 Examination of participant in clinical trial [Z*10/25/2015 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.8] 10/07/2016 KRIS (generalized anxiety disorder) [F41.1] 07/23/2021 Marijuana smoker [F12.90] 07/23/2021 Cysts of both ovaries [N83.201, N83.202] 07/25/2021 07/25/2021 Low grade squamous intraepithelial lesion (LGSI*09/17/2021 Encounter Status:Closed by ELLIOTT OLIVO on 03/10/23 Normal [facility] ACTH Plas-mCncon 02-24-2023 Corticotropin (P) [Mass/Vol] 309.3 pg/mL High 7.2-63.3 [facility] Comment on above: Order Comment: Speci men Type: BLOOD SPECIMENOrdering Facility: [facility] Address: [address] [place] [address] Result Comment: ACTH Reference Range: 7-10 am: 7.2 - 63.3 pg/mL Performed By: #### 2 141-0 ####[id number] [facility] [id number] OF [facility] Comprehensive metabolic 2000 panelon 02-24-2023 Albumin [Mass/Vol] 4.2 g/dL Normal 3.9-4.9 [facility] Comment on above: Order Comment: Speci men Type: BLOOD SPECIMEN Ordering Facility: [facility] Address: [address] [place] [address] Performed By: #### I LGF1 #### [facility] CLIA [id number] [address] [place] [address] [place] ALP [Catalytic activity/Vol] 104 U/L Normal 34-123 [facility] Comment on above: Order Comment: Speci men Type: BLOOD SPECIMEN Ordering Facility: [facility] Address: [address] Performed By: #### I LGF1 #### [facility] CLIA [id number] [address] [place] [address] [place] ALT [Catalytic activity/Vol] 44 U/L High 7-38 [facility] Comment on above: Order Comment: Speci men Type: BLOOD SPECIMEN Ordering Facility: [facility] Address: [address] Performed By: #### I LGF1 #### [facility] CLIA [id number] [address] [place] [address] [place] Anion gap [Moles/Vol] 13 mmol/L Normal 9-18 [facility] Comment on above: Order Comment: Speci men Type: BLOOD SPECIMEN Ordering Facility: [facility] Address: [address] [place], [place] [address] Performed By: #### I LGF1 #### [facility] CLIA [id number] [address] [place] [address] [place] AST [Catalytic activity/Vol] 87 U/L High 13-35 [facility] Comment on above: Order Comment: Speci men Type: BLOOD SPECIMEN Ordering Facility: [facility] Address: [address] [place], [place] [address] Performed By: #### I LGF1 #### [facility] CLIA [id number] [address] [place] [address] [place] Bilirubin [Mass/Vol] 0.4 mg/dL Normal 0.2-1.3 [facility] Comment on above: Order Comment: Speci men Type: BLOOD SPECIMEN Ordering Facility: [facility] Address: [address] [place] [address] Performed By: #### I LGF1 #### [facility] CLIA [id number] [address] [place] [address] [place] Calcium [Mass/Vol] 9.2 mg/dL Normal 8.5-10.2 [facility] Comment on above: Order Comment: Speci men Type: BLOOD SPECIMEN Ordering Facility: [facility] Address: [address] Performed By: #### I LGF1 #### [facility] CLIA [id number] [address] [place] [address] [place] Chloride [Moles/Vol] 103 mmol/L Normal 97-105 [facility] Comment on above: Order Comment: Speci men Type: BLOOD SPECIMEN Ordering Facility: [facility] Address: [address] Performed By: #### I LGF1 #### [facility] CLIA [id number] [address] [place] [address] [place] CO2 [Moles/Vol] 23 mmol/L Normal 22-30 [facility] Comment on above: Order Comment: Speci men Type: BLOOD SPECIMEN Ordering Facility: [facility] Address: [address] [place] [address] Performed By: #### I LGF1 #### [facility] CLIA [id number] [address] [place] [id number] [place] Creatinine [Mass/Vol] 0.87 mg/dL Normal 0.58-0.96 [facility] Comment on above: Order Comment: Speci men Type: BLOOD SPECIMEN Ordering Facility: [facility] Address: [address] [place] [address] Performed By: #### I LGF1 #### [facility] CLIA [id number] [address] [place] [address] [place] Creatinine and Glomerular filtration rate.predicted panel (S/P/Bld) 89 mL/min/1.73m??? Normal >=60 [facility] Comment on above: Order Comment: Nina reynolds Type: BLOOD SPECIMEN Ordering Facility: [facility] Address: [address] [place] [address] Result Comment: Malika mated Glomerular Filtration Rate (eGFR) is calculated using the 2020 CKD-EPI creatinine equation. This equation utilizes serum creatinine, sex, and age as parameters. The creatinine assay has traceable calibration to isotope dilution-mass spectrometry. Refer to KDIGO guidelines for clinical interpretation. In patients with unstable renal function, e.g. those with acute kidney injury, the eGFR may not accurately reflect actual GFR. Performed By: #### I LGF1 #### [facility] CLIA [id number] [address] [place] [address] [place] Glucose [Mass/Vol] 103 mg/dL High 74-99 [facility] Comment on above: Order Comment: Nina reynolds Type: BLOOD SPECIMEN [facility]ing Facility: [facility] Address: [address] [place] [address] Result Comment: The [place] Diabetes Association (ADA) provides guidance for cutoff values for fasting glucose and random glucose. The ADA defines fasting as no caloric intake for at least 8 hours. Fasting plasma glucose results between 100 to 125 mg/dL indicate increased risk for diabetes (prediabetes). Fasting plasma glucose results greater than or equal to 126 mg/dL meet the criteria for diagnosis of diabetes. In the absence of unequivocal hyperglycemia, results should be confirmed by repeat testing. In a patient with classic symptoms of hyperglycemia or hyperglycemic crisis, random plasma glucose results greater than or equal to 200 mg/dL meet the criteria for diagnosis of diabetes. Reference: Standards of Medical Care in Diabetes 2016, [place] Diabetes Association. Diabetes Care. 2016.39(Suppl 1). Performed By: #### I LGF1 #### [facility] CLIA [id number] [address] [place] [address] [place] Potassium [Moles/Vol] 4.0 mmol/L Normal 3.7-5.1 [facility] Comment on above: Order Comment: Speci men Type: BLOOD SPECIMEN Ordering Facility: [facility] Address: [address] Performed By: #### I LGF1 #### [facility] CLIA [id number] [address] [place] [address] [place] Protein [Mass/Vol] 7.2 g/dL Normal 6.3-8.0 [facility] Comment on above: Order Comment: Speci men Type: BLOOD SPECIMEN Ordering Facility: [facility] Address: [address] Performed By: #### I LGF1 #### [facility] CLIA [id number] [address] [place] [address] [place] Sodium [Moles/Vol] 139 mmol/L Normal 136-144 [facility] Comment on above: Order Comment: Speci men Type: BLOOD SPECIMEN Ordering Facility: [facility] Address: [address] [place], [place] [address] Performed By: #### I LGF1 #### [facility] CLIA [id number] [address] [place] [address] [place] Urea nitrogen [Mass/Vol] 10 mg/dL Normal 7-21 [facility] Comment on above: Order Comment: Speci men Type: BLOOD SPECIMEN Ordering Facility: [facility] Address: [address] [place], [place] [address] Performed By: #### I LGF1 #### [facility] CLIA [id number] [address] [place] [address] [place] HbA1c (Bld)on 02-24-2023 Average glucose Estimated from glycated hemoglobin (Bld) [Mass/Vol] 103 mg/dL Normal [facility] Comment on above: Order Comment: Speci men Type: BLOOD SPECIMEN Ordering Facility: [facility] Address: [address] [place], [place] [address] Result Comment: eAG: (Estimated average glucose) is a calculated value from HgbA1c and is pest control service representative of the average blood glucose level in the last 2-3 month period. Performed By: #### I LGF1 #### [facility] CLIA [id number] [address] [place] [address] STATES [place] [facility] HbA1c (Bld) [Mass fraction] 5.2 % Normal 4.3-5.6 [facility] Comment on above: Order Comment: Nina reynolds Type: BLOOD SPECIMEN [facility]: [facility] Address: [address] [place] [address] Result Comment: [place] Diabetes Association guidelines indicate that patients with HgbA1c in the range 5.7-6.4% are at increased risk for development of diabetes, and intervention by lifestyle modification may be beneficial. HgbA1c greater or equal to 6.5% is considered diagnostic of diabetes. Performed By: #### I LGF1 #### [facility] [place] [id number] [address] [place] [address] [place] INSULIN LIK GR FAC Ion 02-24 INSULIN LIK GR FAC 1 26 ng/mL Low 80-277 [facility] Comment on above: Order Comment: Nina reynolds Type: BLOOD SPECIMEN [facility]: [facility] Address: [address] [place] [address] Performed By: #### I LGF1 #### [facility] [place] [id number] [address] [place] [address] [place] Prolactin SerPl-mCncon 02-24 Prolactin [Mass/Vol] 7.7 ng/mL Normal 4.5-26.8 [facility] Comment on above: Order Comment: Nina reynolds Type: BLOOD SPECIMENOrdering Facility: [facility] Address: [address] [place] [address] Result Comment: Prol actin test is performed using the [employer] Electrochemiluminescence Immunoassay method. Results obtained with different methods or kits cannot be used interchangeably. Performed By: #### 2 842-3 ####[facility] [id number] [place] [id number] [facility] [id number] Author: Coordinator, Mammography Service: ? Author Type: Physician Type: Letter Filed: 01/14/2023 11:31 PM Note Text: January 13, 2023 PID: [id number] Angela Abernathy [address] [place] [address] Dear Jessica Nguyen, We are pleased to inform you that the results of your recent breast imaging exam on 01/10/2023 are normal. Early detection of cancer is very important. We also understand recommendations regarding breast cancer screening are controversial. Please discuss with your primary care provider which strategy is best for you and whether a mammogram is right for you. Your imaging studies and report will be kept on file at [facility] as part of your permanent medical record and are available for your continuing care. Thank you for allowing us to help in meeting your health care needs. Sincerely, Dr. Zuinga Interpreting Radiologist [facility] (Normal over 40) Normal [facility] SCREENING W TOMOon 01-10 [facility] SCREENING W JENARO * * *Final Report* * * DATE OF EXAM: Jan 10 2023 2:07PM [facility] 0582 - [facility] SCREENING W JENARO / PROCEDURE REASON: multiple diagnoses * * * * Physician Interpretation * * * * RESULT: #[id number] - [facility] SCREENING W JENARO BILATERAL DIGITAL SCREENING MAMMOGRAM TOMOSYNTHESIS WITH CAD: 01/10/2023 HISTORY: /Baseline screening mammogram-Pt reports NO problems. RESULT: TECHNIQUE: The study was acquired using full field digital technology and interpreted from soft copy. Digital Breast Tomosynthesis (DBT) images were obtained and used to assist in the interpretation of this examination. Current study was also evaluated with a Computer Aided Detection (CAD). No prior exams were available for comparison. The tissue of both breasts is predominantly fatty. No significant masses, calcifications, or other findings are seen in either breast. IMPRESSION: NEGATIVE There is no mammographic evidence of malignancy. A 5 year screening mammogram is recommended. Magi Zuniga M.D. ld/penrad:01/13/2023 07:57:54 Permaculture Contractor(s): Vibha Macdonald, RT(R)(M), [facility] letter sent: Normal over 40 Mammogram BI-RADS: 1 Negative Multiple national specialty organizations have released breast cancer screening guidelines for women at average risk for developing breast cancer - guidelines that are based on both evidence and opinion, yet differ on when to start and how often to screen for breast cancer. With representation from Breast Imaging, Internal Medicine, Women's Health, Family Medicine, and Medical/Surgical Oncology, the [facility] has carefully reviewed the data and reached the following consensus: 1) All women should engage in shared decision-making with their providers to decide when to start and how often to screen; 2) All women should have the opportunity to start screening mammography at age 40; 3) For women ages 45-55, we recommend annual screening mammograms; 4) For women ages 55 and over, we support both the transition from an annual to a biennial interval if this aligns more with patient's values and preferences, or continuation with annual screening; 5) All women should discuss with their providers when to stop screening mammograms. [employer] Cleaner: Ivan Transcribe Date/Time: Jan 10 2023 1:53P Dictated by : MAGI ZUNIGA MD This examination was interpreted and the report reviewed and electronically signed by: MAGI ZUNIGA MD on Jan 13 2023 7:57AM EST [id number] [facility] ANGELA NGUYEN ([id number]) 1985 F Date Time Provider Department 10/29/22 [facility] During your visit today, we recorded the following information about you: Rodolfo Rojas PSS 10/29/2022 9:42 AM Signed [facility] called asked to initiate a PA for 90 days supplies for Isturisa 5 mg . Thank you Brunilda Calixto ADM 11/01/2022 8:05 AM Signed Initiated PA for osilodrostat (ISTURISA) 5 mg tablet [place] via [employer] [place]: [id number] Questions completed Waiting for kristen COKER Coordinator Endocrinology and Metabolism [place] Brunilda Calixto [facility] 11/06/2022 3:09 PM Signed Isturisa has been approved Notified patient through [place] COKER Coordinator Endocrinology and Metabolism [place] Allergies As of Date: 10/29/2022 (No Known Allergies) Date Reviewed: 08/12/2022 Reviewed by: Eliz Finley LPN - Fully Assessed Reason for Visit: Insurance Authorization [[id number]] Cmt: Isturisa 5 mg Prescriptions as of 11/06/2022 - osilodrostat (ISTURISA) 5 mg tablet 15 mg twice a day - Desogestrel-Ethinyl Estradiol (APRI) 0.15-0.03 mg per tablet Take 1 tablet by mouth once daily. - busPIRone (BUSPAR) 7.5 mg tablet Take 7.5 mg by mouth twice daily. - lamoTRIgine (LAMICTAL) 25 mg tablet Take 2 tablets by mouth daily at bedtime. - levothyroxine (SYNTHROID) 150 mcg tablet TAKE ONE TABLET BY MOUTH ONCE DAILY ON EMPTY STOMACH - somatropin (GENOTROPIN) 0.6 mg/0.25 mL injection Inject 0.6 mg subcutaneously once daily. - acetaminophen (TYLENOL) 325 mg tablet Take 2 tablets by mouth every 6 hours as needed for pain. - ibuprofen (MOTRIN) 600 mg tablet Take 1 tablet by mouth every 6 hours as needed for pain. Take with food. - ketoconazole (NIZORAL) 2 % shampoo - PARoxetine (PAXIL) 20 mg tablet Take 20 mg by mouth once daily. - iv contrast (will be provided with radiology test) MRI Pituitary Inject, intravenously, once for 1 dose. No IV access, insert saline lock prior to the beginning of sedation, infusion, injection of imaging exam. Discontinue saline lock post exam. If Pt. has a central line or IVAD, may access for administration according to line specific nursing protocol. Once exam is complete flush line and de-access according to line specific nursing protocol in the MR contrast administration guidelines link. - MULTIVITAMIN ORAL Take 1 tablet by mouth once daily. Meds Comments as of 10/25/2015: 15 mg twice daily. Study drug [id number] Dose increased to 30 mg daily on 10/25/2015. 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*12/31/2014 Status post gamma knife treatment [Z92.3] 12/31/2014 Examination of participant in clinical trial [Z*10/25/2015 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.8] 10/07/2016 KRIS (generalized anxiety disorder) [F41.1] 07/23/2021 Marijuana smoker [F12.90] 07/23/2021 Cysts of both ovaries [N83.201, N83.202] 07/25/2021 07/25/2021 Low grade squamous intraepithelial lesion (LGSI*09/17/2021 Encounter Status:Closed by BRUNILDA LEAVITT on 11/01/22 [facility] Juan David 10-22-2022 CNPN Telephone (ENDOMN) ANGELA NGUYEN ([id number]) 1985 F Date Time Provider Department 10/22/22 MICAELA LAURA During your visit today, we recorded the following information about you: Bright Wright Pss 10/22/2022 4:08 PM Signed [facility] rep call stating Isturisa is no longer available in the 10 mg tablet. [facility] rep sts a RX for 3 5 mg tablets twice daily is needed. [facility] Ph. 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 - busPIRone (BUSPAR) 7.5 mg tablet Take 7.5 mg by mouth twice daily. - lamoTRIgine (LAMICTAL) 25 mg tablet Take 2 tablets by mouth daily at bedtime. - levothyroxine (SYNTHROID) 150 mcg tablet TAKE ONE TABLET BY MOUTH ONCE DAILY ON EMPTY STOMACH - somatropin (GENOTROPIN) 0.6 mg/0.25 mL injection Inject 0.6 mg subcutaneously once daily. - acetaminophen (TYLENOL) 325 mg tablet Take 2 tablets by mouth every 6 hours as needed for pain. - ibuprofen (MOTRIN) 600 mg tablet Take 1 tablet by mouth every 6 hours as needed for pain. Take with food. - ketoconazole (NIZORAL) 2 % shampoo - PARoxetine (PAXIL) 20 mg tablet Take 20 mg by mouth once daily. - iv contrast (will be provided with radiology test) MRI Pituitary Inject, intravenously, once for 1 dose. No IV access, insert saline lock prior to the beginning of sedation, infusion, injection of imaging exam. Discontinue saline lock post exam. If Pt. has a central line or IVAD, may access for administration according to line specific nursing protocol. Once exam is complete flush line and de-access according to line specific nursing protocol in the MR contrast administration guidelines link. - MULTIVITAMIN ORAL Take 1 tablet by mouth once daily. Meds Comments as of 10/25/2015: 15 mg twice daily. Study drug [id number] Dose increased to 30 mg daily on 10/25/2015. 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*12/31/2014 Status post gamma knife treatment [Z92.3] 12/31/2014 Examination of participant in clinical trial [Z*10/25/2015 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 With 5 mg dose to total 15 mg twice a day - osilodrostat (ISTURISA) 5 mg tablet (Discontinued) 5 mg twice a day with the 10 mg dose to total 15 mg twice a day Encounter Status:Closed by MICAELA LAURA on 10/25/22 [facility] 10-07-2022 CNPN Telephone (ENDOMN) ANGELA NGUYEN ([id number]) 1985 F Date Time Provider Department 10/07/22 MICAELA LAURA ENDOMN During your visit today, we recorded the following information about you: Sophia Bentley Waterfront Director 10/07/2022 12:58 PM Signed [facility] called in to let the office know Inturista 5 mg and 10 mg was denied because the doctors signature was not legible. [facility] is asking for the office to resend the prior auth with a legible signature. Sophia Bentley Recycling Crew Supervisor II [facility]-F[facility] Brunilda Calixto ADM 10/07/2022 1:22 PM Addendum PA request resent with printed name/signature for Inturista 5 mg and 10 mg via Covermymeds 5 mg: Mills: [id number] 10 mg: Mills: [id number] Brunilda COKER Coordinator Endocrinology and Metabolism [place] Allergies As of Date: 10/07/2022 (No Known Allergies) Date Reviewed: 08/12/2022 Reviewed by: Eliz Finley LPN - Fully Assessed Reason for Visit: Insurance Authorization [[id number]] Cmt: Inturista Prescriptions as of 10/07/2022 - Desogestrel-Ethinyl Estradiol (APRI) 0.15-0.03 mg per tablet Take 1 tablet by mouth once daily. - osilodrostat (ISTURISA) 5 mg tablet 5 mg twice a day with the 10 mg dose to total 15 mg twice a day - osilodrostat (ISTURISA) 10 mg tablet Take 1 tablet by mouth twice daily. With 5 mg dose to total 15 mg twice a day - busPIRone (BUSPAR) 7.5 mg tablet Take 7.5 mg by mouth twice daily. - lamoTRIgine (LAMICTAL) 25 mg tablet Take 2 tablets by mouth daily at bedtime. - levothyroxine (SYNTHROID) 150 mcg tablet TAKE ONE TABLET BY MOUTH ONCE DAILY ON EMPTY STOMACH - somatropin (GENOTROPIN) 0.6 mg/0.25 mL injection Inject 0.6 mg subcutaneously once daily. - acetaminophen (TYLENOL) 325 mg tablet Take 2 tablets by mouth every 6 hours as needed for pain. - ibuprofen (MOTRIN) 600 mg tablet Take 1 tablet by mouth every 6 hours as needed for pain. Take with food. - ketoconazole (NIZORAL) 2 % shampoo - PARoxetine (PAXIL) 20 mg tablet Take 20 mg by mouth once daily. - iv contrast (will be provided with radiology test) MRI Pituitary Inject, intravenously, once for 1 dose. No IV access, insert saline lock prior to the beginning of sedation, infusion, injection of imaging exam. Discontinue saline lock post exam. If Pt. has a central line or IVAD, may access for administration according to line specific nursing protocol. Once exam is complete flush line and de-access according to line specific nursing protocol in the MR contrast administration guidelines link. - MULTIVITAMIN ORAL Take 1 tablet by mouth once daily. Meds Comments as of 10/25/2015: 15 mg twice daily. Study drug [id number] Dose increased to 30 mg daily on 10/25/2015. 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*12/31/2014 Status post gamma knife treatment [Z92.3] 12/31/2014 Examination of participant in clinical trial [Z*10/25/2015 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] 10/07/2016 KRIS (generalized anxiety disorder) [F41.1] 07/23/2021 Marijuana smoker [F12.90] 07/23/2021 Cysts of both ovaries [N83.201, N83.202] 07/25/2021 07/25/2021 Low grade squamous intraepithelial lesion (LGSI*09/17/2021 Encounter Status:Closed by BRUNILDA LEAVITT on 10/07/22 [facility] CNPNon 09-30-2022 CNPN Telephone (ENDOMN) ANGELA NGUYEN ([id number]) 1985 F Date Time Provider Department 09/30/22 MICAELA LAURA ENDOMN During your visit today, we recorded the following information about you: Bright Wright Pss 09/30/2022 4:56 PM Signed [facility] rep called requesting a renewal PA for Isturista 5 and 19 mg pt's ins [facility] Ph. [phone] [facility] Ph. 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 [facility] 10/03/2022 9:36 AM Signed Initiated PA for ISTURISTA through [facility] via Covermymeds 5 mg: Mills: [id number] 10 mg: Mills: [id number] Questions completed Waiting for determination Brunilda COKER Coordinator Endocrinology and Metabolism [place] Brunilda Calixto [facility] 10/08/2022 2:13 PM Signed ISTURISA has been approved Notified patient through [facility] COKER Coordinator Endocrinology and Metabolism [place] Allergies As of Date: 09/30/2022 (No Known Allergies) Date Reviewed: 08/12/2022 Reviewed by: Eliz Finley LPN - Fully Assessed Reason for Visit: Insurance Authorization [[id number]] Cmt: ISTURISTA Prescriptions as of 10/08/2022 - Desogestrel-Ethinyl Estradiol (APRI) 0.15-0.03 mg per tablet Take 1 tablet by mouth once daily. - osilodrostat (ISTURISA) 5 mg tablet 5 mg twice a day with the 10 mg dose to total 15 mg twice a day - osilodrostat (ISTURISA) 10 mg tablet Take 1 tablet by mouth twice daily. With 5 mg dose to total 15 mg twice a day - busPIRone (BUSPAR) 7.5 mg tablet Take 7.5 mg by mouth twice daily. - lamoTRIgine (LAMICTAL) 25 mg tablet Take 2 tablets by mouth daily at bedtime. - levothyroxine (SYNTHROID) 150 mcg tablet TAKE ONE TABLET BY MOUTH ONCE DAILY ON EMPTY STOMACH - somatropin (GENOTROPIN) 0.6 mg/0.25 mL injection Inject 0.6 mg subcutaneously once daily. - acetaminophen (TYLENOL) 325 mg tablet Take 2 tablets by mouth every 6 hours as needed for pain. - ibuprofen (MOTRIN) 600 mg tablet Take 1 tablet by mouth every 6 hours as needed for pain. Take with food. - ketoconazole (NIZORAL) 2 % shampoo - PARoxetine (PAXIL) 20 mg tablet Take 20 mg by mouth once daily. - iv contrast (will be provided with radiology test) MRI Pituitary Inject, intravenously, once for 1 dose. No IV access, insert saline lock prior to the beginning of sedation, infusion, injection of imaging exam. Discontinue saline lock post exam. If Pt. has a central line or IVAD, may access for administration according to line specific nursing protocol. Once exam is complete flush line and de-access according to line specific nursing protocol in the MR contrast administration guidelines link. - MULTIVITAMIN ORAL Take 1 tablet by mouth once daily. Meds Comments as of 10/25/2015: 15 mg twice daily. Study drug [id number] Dose increased to 30 mg daily on 10/25/2015. 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*12/31/2014 Status post gamma knife treatment [Z92.3] 12/31/2014 Examination of participant in clinical trial [Z*10/25/2015 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.8] 10/07/2016 KRIS (generalized anxiety disorder) [F41.1] 07/23/2021 Marijuana smoker [F12.90] 07/23/2021 Cysts of both ovaries [N83.201, N83.202] 07/25/2021 07/25/2021 Low grade squamous intraepithelial lesion (LGSI*09/17/2021 Encounter Status:Closed by MICAELA LAURA on 10/01/22 Normal [facility] CREATININE 24 HR URon 2022 Creatinine (24H U) [Mass/Time] 1.773 g/24 hr Normal 0.800-1.800 [facility] Comment on above: Order Comment: Speci men Type: TIMED URINE SPECIMEN Ordering Facility: [facility] Address: [address] [place], [place] [id number] Performed By: #### U CRD #### [facility] CLIA [id number] 9500 [facility] [id number] [place] [id number] [place] OF [facility] CLIA [id number] [address] [place] [address] PERIOD (HRS) 24 hr Normal [facility] Comment on above: Order Comment: Speci men Type: TIMED URINE SPECIMEN Ordering Facility: [facility] Address: [address] [place] [phone] Performed By: #### U CRD #### [facility] CLIA [id number] [address] [place] [address] [place] [facility] CLIA [id number] [address] [place] [address] VOLUME (ML) 1300 mL Normal [facility] Comment on above: Order Comment: Speci men Type: TIMED URINE SPECIMEN Ordering Facility: [facility] Address: [address] [place], [place] [id number] Performed By: #### U CRD #### [facility] CLIA [id number] [address] [place] [address] [place] [facility] CLIA [id number] [address] [place] [address] URINE FREE CORTISOL BY LC-MS /MSon 09-25-2022 CORTISOL UG/G ANIMAL SHELTER CLERK, UR (UFRCRT) 5.66 ug/g ANIMAL SHELTER CLERK Normal [facility] Comment on above: Order Comment: Speci men Type: BLOOD SPECIMEN Ordering Facility: [facility] Address: [address] [place], [place] [id number] Result Comment: Refe rence Interval: Cortisol ug/g pantry cook Female Prepubertal: Less than 25 ug/g pantry cook 18 years and older: Less than 24 ug/g pantry cook : Less than 59 ug/g pantry cook Male Prepubertal: Less than 25 ug/g pantry cook 18 years and older: Less than 32 ug/g pantry cook Performed By: #### I LGF1 #### [facility] CLIA [id number] [address] [place] [address] [place] CREATININE UR, PER 24H 1807 mg/d High 700-1600 [facility] Comment on above: Order Comment: Speci men Type: BLOOD SPECIMEN Ordering Facility: [facility] Address: [address] [place] [address] Performed By: #### I LGF1 #### [facility] CLIA [id number] [address] [place] [address] [place] CREATININE UR, PER VOLUME 139 mg/dL Normal [facility] Comment on above: Order Comment: Speci men Type: BLOOD SPECIMEN Ordering Facility: [facility] Address: [address] Performed By: #### I LGF1 #### [facility] CLIA [id number] [address] [place] [address] [place] FREE CORTISOL UG/DAY, URINE 10.2 ug/d Normal <=45.0 [facility] Comment on above: Order Comment: Speci men Type: BLOOD SPECIMEN Ordering Facility: [facility] Address: [address] [place] [address] Performed By: #### I LGF1 #### [facility] CLIA [id number] [facility] [place] [address] [place] FREE CORTISOL UG/L, URINE 7.87 ug/L Normal [facility] Comment on above: Order Comment: Speci men Type: BLOOD SPECIMEN Ordering Facility: [facility] Address: [address] Performed By: #### I LGF1 #### [facility] CLIA [id number] [address] [place] [address] [place] HOURS COLLECTED 24 hr Normal [facility] Comment on above: Order Comment: Speci men Type: BLOOD SPECIMEN Ordering Facility: [facility] Address: [address] [place], [place] [address] Result Comment: Per 24h calculations are provided to aid interpretation for collections with a duration of 24 hours and an average daily urine volume. For specimens with notable deviations in collection time or volume, ratios of analytes to a corresponding urine creatinine concentration may assist in result interpretation. Performed By: #### I LGF1 #### [facility] CLIA [id number] [address] [place] TOTAL VOLUME 1300 mL Normal [facility] Comment on above: Order Comment: Speci men Type: BLOOD SPECIMEN Ordering Facility: [facility] Address: [address] Performed By: #### I LGF1 #### [facility] CLIA [id number] [address] [place] [address] [place] UR LATRICE FREE INTERP See Note Normal [facility] Comment on above: Order Comment: Speci men Type: BLOOD SPECIMEN Ordering Facility: [facility] Address: [address] [place] [address] Result Comment: INTE RPRETIVE INFORMATION: Cortisol Urine Free by LC-MS/MS Access complete set of age- and/or gender-specific reference intervals for this test in the [facility] Test Directory ([employer]). This test was developed and its performance characteristics determined by [facility]. It has not been cleared or approved by the US Food and Drug Administration. This test was performed in a CLIA certified laboratory and is intended for clinical purposes. Performed by [facility], [address] [place] [address] [email or web address], Nayan Cornell MD, PHD, Lab. Director Performed By: #### I LGF1 #### [facility] [place] [id number] [address] [place] [address] OF A[place] CNPIrene 09-03-2022 CNPN Telephone (ENDOMN) ANGELA NGUYEN ([id number]) 1985 F Date Time Provider Department 09/03/22 MICAELA LAURA ENDOMN During your visit today, we recorded the following information about you: Sunni Justinreji Adm 09/03/2022 9:58 AM Signed Called lab for results of the Urine Free Cortisol by LC-MS/MS Was informed that the test was never run. This needs to be reordered. Can new orders be placed for this test? Results are needed for the prior authorization for the Isturisa. Micaela Pierre MD 09/03/2022 10:34 AM Signed Orders placed Micaela Pierre MD Allergies As of Date: 09/03/2022 (No Known Allergies) Date Reviewed: 08/12/2022 Reviewed by: Eliz Finley LPN - Fully Assessed Reason for Visit: Lab Orders [1578] Cmt: URINE FREE CORTISOL BY LC-MS/MS Prescriptions as of 09/03/2022 - Desogestrel-Ethinyl Estradiol (APRI) 0.15-0.03 mg per tablet Take 1 tablet by mouth once daily. - osilodrostat (ISTURISA) 5 mg tablet 5 mg twice a day with the 10 mg dose to total 15 mg twice a day - osilodrostat (ISTURISA) 10 mg tablet Take 1 tablet by mouth twice daily. With 5 mg dose to total 15 mg twice a day - busPIRone (BUSPAR) 7.5 mg tablet Take 7.5 mg by mouth twice daily. - lamoTRIgine (LAMICTAL) 25 mg tablet Take 2 tablets by mouth daily at bedtime. - levothyroxine (SYNTHROID) 150 mcg tablet TAKE ONE TABLET BY MOUTH ONCE DAILY ON EMPTY STOMACH - somatropin (GENOTROPIN) 0.6 mg/0.25 mL injection Inject 0.6 mg subcutaneously once daily. - acetaminophen (TYLENOL) 325 mg tablet Take 2 tablets by mouth every 6 hours as needed for pain. - ibuprofen (MOTRIN) 600 mg tablet Take 1 tablet by mouth every 6 hours as needed for pain. Take with food. - ketoconazole (NIZORAL) 2 % shampoo - PARoxetine (PAXIL) 20 mg tablet Take 20 mg by mouth once daily. - iv contrast (will be provided with radiology test) MRI Pituitary Inject, intravenously, once for 1 dose. No IV access, insert saline lock prior to the beginning of sedation, infusion, injection of imaging exam. Discontinue saline lock post exam. If Pt. has a central line or IVAD, may access for administration according to line specific nursing protocol. Once exam is complete flush line and de-access according to line specific nursing protocol in the MR contrast administration guidelines link. - MULTIVITAMIN ORAL Take 1 tablet by mouth once daily. Meds Comments as of 10/25/2015: 15 mg twice daily. Study drug [id number] Dose increased to 30 mg daily on 10/25/2015. 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*12/31/2014 Status post gamma knife treatment [Z92.3] 12/31/2014 Examination of participant in clinical trial [Z*10/25/2015 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.8] 10/07/2016 KRIS (generalized anxiety disorder) [F41.1] 07/23/2021 Marijuana smoker [F12.90] 07/23/2021 Cysts of both ovaries [N83.201, N83.202] 07/25/2021 07/25/2021 Low grade squamous intraepithelial lesion (LGSI*09/17/2021 Encounter Status:Closed by MICAELA LAURA on 09/03/22 [facility] 08-20-2022 [facility] Telephone ([facility]) ANGELA NGUYEN ([id number]) 1985 F Date Time Provider Department 08/20/22 MAXIM HENRY [facility] During your visit today, we recorded the following information about you: Maxim Henry MD 08/20/2022 3:50 PM Signed Repeat pap in 12 months. Lia Wayne RN 08/21/2022 11:50 AM Signed RN called patient and no answer. Left message to call office back. Lia Wayne RN Lia Wayne RN 08/28/2022 2:48 PM Signed I called the patient. Reviewed Pap results- ASCUS, neg HPV. She verbalizes understanding and questions answered. She is aware she needs a repeat Pap in 1 year. She will call with any further questions or concerns. Lia Wayne RN Allergies As of Date: 08/20/2022 (No Known Allergies) Date Reviewed: 08/12/2022 Reviewed by: Eliz Finley LPN - Fully Assessed Reason for Visit: Abnormal Pap [273] Prescriptions as of 08/28/2022 - Desogestrel-Ethinyl Estradiol (APRI) 0.15-0.03 mg per tablet Take 1 tablet by mouth once daily. - osilodrostat (ISTURISA) 5 mg tablet 5 mg twice a day with the 10 mg dose to total 15 mg twice a day - osilodrostat (ISTURISA) 10 mg tablet Take 1 tablet by mouth twice daily. With 5 mg dose to total 15 mg twice a day - busPIRone (BUSPAR) 7.5 mg tablet Take 7.5 mg by mouth twice daily. - lamoTRIgine (LAMICTAL) 25 mg tablet Take 2 tablets by mouth daily at bedtime. - levothyroxine (SYNTHROID) 150 mcg tablet TAKE ONE TABLET BY MOUTH ONCE DAILY ON EMPTY STOMACH - somatropin (GENOTROPIN) 0.6 mg/0.25 mL injection Inject 0.6 mg subcutaneously once daily. - acetaminophen (TYLENOL) 325 mg tablet Take 2 tablets by mouth every 6 hours as needed for pain. - ibuprofen (MOTRIN) 600 mg tablet Take 1 tablet by mouth every 6 hours as needed for pain. Take with food. - ketoconazole (NIZORAL) 2 % shampoo - PARoxetine (PAXIL) 20 mg tablet Take 20 mg by mouth once daily. - iv contrast (will be provided with radiology test) MRI Pituitary Inject, intravenously, once for 1 dose. No IV access, insert saline lock prior to the beginning of sedation, infusion, injection of imaging exam. Discontinue saline lock post exam. If Pt. has a central line or IVAD, may access for administration according to line specific nursing protocol. Once exam is complete flush line and de-access according to line specific nursing protocol in the MR contrast administration guidelines link. - MULTIVITAMIN ORAL Take 1 tablet by mouth once daily. Meds Comments as of 10/25/2015: 15 mg twice daily. Study drug [id number] Dose increased to 30 mg daily on 10/25/2015. 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*12/31/2014 Status post gamma knife treatment [Z92.3] 12/31/2014 Examination of participant in clinical trial [Z*10/25/2015 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.8] 10/07/2016 KRIS (generalized anxiety disorder) [F41.1] 07/23/2021 Marijuana smoker [F12.90] 07/23/2021 Cysts of both ovaries [N83.201, N83.202] 07/25/2021 07/25/2021 Low grade squamous intraepithelial lesion (LGSI*09/17/2021 Encounter Status:Closed by LIA WAYNE RN on 08/28/22 [facility] Juan David 08-16-2022 [facility] Telephone (ENDOMN) ANGELA NGUYEN ([id number]) 1985 F Date Time Provider Department 08/16/22 MICAELA LAURA During your visit today, we recorded the following information about you: Sunni Mcclendon Adm 08/16/2022 4:00 PM Signed Initiated PA for Isturisa 5 mg and 10 mg through [facility] via Covermymeds 5mg = Mills: [id number] 10 mg = Waiting for urine free cortisol results to come back before submitting Questions completed Attached chart notes, IGF-1 and urine cortisol Waiting for determination Herminia Ferreira 08/23/2022 10:42 AM Signed Rebecca from [facility] called in regards to status of PA for Isturista. I updated them with last note in regards to waiting for specific lab results. If we need to contact, reach number is [phone]. 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 - osilodrostat (ISTURISA) 5 mg tablet 5 mg twice a day with the 10 mg dose to total 15 mg twice a day - osilodrostat (ISTURISA) 10 mg tablet Take 1 tablet by mouth twice daily. With 5 mg dose to total 15 mg twice a day - busPIRone (BUSPAR) 7.5 mg tablet Take 7.5 mg by mouth twice daily. - lamoTRIgine (LAMICTAL) 25 mg tablet Take 2 tablets by mouth daily at bedtime. - levothyroxine (SYNTHROID) 150 mcg tablet TAKE ONE TABLET BY MOUTH ONCE DAILY ON EMPTY STOMACH - somatropin (GENOTROPIN) 0.6 mg/0.25 mL injection Inject 0.6 mg subcutaneously once daily. - acetaminophen (TYLENOL) 325 mg tablet Take 2 tablets by mouth every 6 hours as needed for pain. - ibuprofen (MOTRIN) 600 mg tablet Take 1 tablet by mouth every 6 hours as needed for pain. Take with food. - ketoconazole (NIZORAL) 2 % shampoo - PARoxetine (PAXIL) 20 mg tablet Take 20 mg by mouth once daily. - iv contrast (will be provided with radiology test) MRI Pituitary Inject, intravenously, once for 1 dose. No IV access, insert saline lock prior to the beginning of sedation, infusion, injection of imaging exam. Discontinue saline lock post exam. If Pt. has a central line or IVAD, may access for administration according to line specific nursing protocol. Once exam is complete flush line and de-access according to line specific nursing protocol in the MR contrast administration guidelines link. - MULTIVITAMIN ORAL Take 1 tablet by mouth once daily. Meds Comments as of 10/25/2015: 15 mg twice daily. Study drug [id number] Dose increased to 30 mg daily on 10/25/2015. 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*12/31/2014 Status post gamma knife treatment [Z92.3] 12/31/2014 Examination of participant in clinical trial [Z*10/25/2015 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.8] 10/07/2016 KRIS (generalized anxiety disorder) [F41.1] 07/23/2021 Marijuana smoker [F12.90] 07/23/2021 Cysts of both ovaries [N83.201, N83.202] 07/25/2021 07/25/2021 Low grade squamous intraepithelial lesion (LGSI*09/17/2021 Encounter Status:Closed by SUNNI ROOT on 08/17/22 [facility] Juan David 08-15-2022 CNPN Telephone (ENDOMN) PATRICKANGELA Danna ([id number]) 1985 F Date Time Provider Department 08/15/22 MICAELA LUARA ENDOMERLYN During your visit today, we recorded the following information about you: Aan Danna MarroquinMaria Alejandra Pss 08/15/2022 12:18 PM Signed [facility] calling. States patients: Osilodrostat 10 mg and Osilodrostat 5 mg are set to in August. [facility] started PA process with cover my meds and wanted to let office know the KEYs, so this can be authorized. MILLS for 10 mg is [id number] MILLS for 5 mg is [id number] Sunni Heredia 09/03/2022 10:10 AM Signed Initiated PA for Isturisa 5mg and 10 mg through [facility] via Covermymeds [place] provided are invalid: Isturisa 10 mg: MILLS [id number] Isturisa 5 mg: MILLS [id number] New [place]: 5 mg: Mills: [id number] 10 mg: Mills: [id number] Need results of urine cortisol before submitting PA's. Waiting for response from Dr. Dov Pierre since lab never ran the test. Called [facility] and informed them of the status Allergies As of Date: 08/15/2022 (No Known Allergies) Date Reviewed: 08/12/2022 Reviewed by: Eliz Finley LPN - Fully Assessed Reason for Visit: Insurance Authorization [[id number]] Cmt: Isturisa 5mg and 10 mg Prescriptions as of 09/03/2022 - Desogestrel-Ethinyl Estradiol (APRI) 0.15-0.03 mg per tablet Take 1 tablet by mouth once daily. - osilodrostat (ISTURISA) 5 mg tablet 5 mg twice a day with the 10 mg dose to total 15 mg twice a day - osilodrostat (ISTURISA) 10 mg tablet Take 1 tablet by mouth twice daily. With 5 mg dose to total 15 mg twice a day - busPIRone (BUSPAR) 7.5 mg tablet Take 7.5 mg by mouth twice daily. - lamoTRIgine (LAMICTAL) 25 mg tablet Take 2 tablets by mouth daily at bedtime. - levothyroxine (SYNTHROID) 150 mcg tablet TAKE ONE TABLET BY MOUTH ONCE DAILY ON EMPTY STOMACH - somatropin (GENOTROPIN) 0.6 mg/0.25 mL injection Inject 0.6 mg subcutaneously once daily. - acetaminophen (TYLENOL) 325 mg tablet Take 2 tablets by mouth every 6 hours as needed for pain. - ibuprofen (MOTRIN) 600 mg tablet Take 1 tablet by mouth every 6 hours as needed for pain. Take with food. - ketoconazole (NIZORAL) 2 % shampoo - PARoxetine (PAXIL) 20 mg tablet Take 20 mg by mouth once daily. - iv contrast (will be provided with radiology test) MRI Pituitary Inject, intravenously, once for 1 dose. No IV access, insert saline lock prior to the beginning of sedation, infusion, injection of imaging exam. Discontinue saline lock post exam. If Pt. has a central line or IVAD, may access for administration according to line specific nursing protocol. Once exam is complete flush line and de-access according to line specific nursing protocol in the MR contrast administration guidelines link. - MULTIVITAMIN ORAL Take 1 tablet by mouth once daily. Meds Comments as of 10/25/2015: 15 mg twice daily. Study drug [id number] Dose increased to 30 mg daily on 10/25/2015. 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*12/31/2014 Status post gamma knife treatment [Z92.3] 12/31/2014 Examination of participant in clinical trial [Z*10/25/2015 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.8] 10/07/2016 KRIS (generalized anxiety disorder) [F41.1] 07/23/2021 Marijuana smoker [F12.90] 07/23/2021 Cysts of both ovaries [N83.201, N83.202] 07/25/2021 07/25/2021 Low grade squamous intraepithelial lesion (LGSI*09/17/2021 Encounter Status:Closed by SUNNI ROOT on 09/03/22 [facility] CNOVon 08-12-2022 CNOV Office Visit ([id number] ) ANGELA NGUYEN ([id number]) 1985 F Date Time Provider Department 08/12/22 10:40 AM MAXIM HENRY [id number] During your visit today, we recorded the following information about you: Blood pressure Weight Last Period 125/76 105.2 kg 07/29/22 Eliz Finley LPN 08/12/2022 10:46 AM Signed Campus Supervisor offered: Patient accepts, visit chaperoned by Eliz. Maxim Henry MD 08/12/2022 11:18 AM Signed Angela Nguyen is a 37 year old who presents for her annual gynecologic exam. Patient's last menstrual period was 07/29/2022. 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 Wants abdirizak stay on [facility]. 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) History of ovarian cystectomy 07/25/2021 bilateral History of right salpingectomy 07/25/2021 Irregular menstrual cycle Irregular periods Low grade squamous intraepithelial lesion (LGSIL) on cervical Pap smear Obesity, unspecified Polycystic ovaries PAST SURGICAL HISTORY Procedure Laterality Date ENDOCERVICAL CURETTAGE 03/16/2021 HYPOPHYSEC/EXC PITUITARY MIGUELINA TRANSNASAL/SEPTAL 07/2003 Transphenoidal hypophys HYPOPHYSEC/EXC PITUITARY MIGUELINA TRANSNASAL/SEPTAL 12/2003 Transphenoidal hypophys LEEP PROCEDURE ([facility] PRESIDENT DEPT)_*FL 06/07/2010 MRI GAMMA KNIFE LOCAL WWO CONT 2005 pituitary for cushings OVARIAN CYSTECTOMY Bilateral 07/25/2021 serous cystoadenoma SALPINGECTOMY Right 07/25/2021 laparoscopic with excision of bilateral cysts VAGINOSCOPY 03/26/2021 FAMILY HISTORY Problem Relation Age of Onset Thyroid Paternal Grandmother Heart Other maternal great grandmother Social History Tobacco Use Smoking status: Never Smokeless tobacco: Never Vaping Use Vaping Use: Never used Substance Use Topics Alcohol use: Yes Alcohol/week: 2.6 standard drinks Types: 2 Mixed Drinks per week Comment: social Drug use: Yes Comment: marijuana daily REVIEW OF SYSTEMS IS NEGATIVE PHYSICAL EXAM: BP 125/76 Wt 232 lb (105.2kg) LMP 07/29/2022 NECK: No goiter or thyroid enlargement CHEST: Normal LUNGS: Clear HEART: RRR BREAST: No masses ABDOMEN: Soft, non-tender, No masses PELVIC: Normal external genitalia, no lesions VAGINA: Normal CERVIX: Normal UTERUS: Normal AX - L: No masses AX - R: No masses ASSESSMENT/PLAN: ANNUAL EXAM Pap ordered. Reflex HPV ordered. Reviewed and encouraged self-breast exam. 6762-6402 mg of calcium daily. Encourged a healthy diet and exercise. Return to office in one year or earlier as needed. Maxim Henry MD Allergies As of Date: 08/12/2022 (No Known Allergies) Date Reviewed: 08/12/2022 Reviewed by: Eliz Finley LPN - Fully Assessed Reason for Visit: Well Woman [1463] Primary Visit Diagnosis:Encounter for gynecological examination without abnormal finding [Z01.419] Other Visit Diagnoses:Encounter for screening for malignant neoplasm of cervix [Z12.4] Encounter for Papanicolaou cervical smear following prior abnormal smear [Z12.4] Encounter for screening mammogram for malignant neoplasm of breast [Z12.31] Order(s):PAP FLUID CERVICAL SCREENING [XUP3933] Order #: [id number]. #:[id number] SYBIL SCREENING [[id number]] Order #: [id number] FUTURE Desogestrel-Ethinyl Estradiol (APRI) 0.15-0.03 mg per tabletTake 1 tablet by mouth once daily.Disp: 84 tabletRfl: 4 Prescriptions as of 08/12/2022 - Desogestrel-Ethinyl Estradiol (APRI) 0.15-0.03 mg per tablet Take 1 tablet by mouth once daily. - osilodrostat (ISTURISA) 5 mg tablet 5 mg twice a day with the 10 mg dose to total 15 mg twice a day - osilodrostat (ISTURISA) 10 mg tablet Take 1 tablet by mouth twice daily. With 5 mg dose to total 15 mg twice a day - busPIRone (BUSPAR) 7.5 mg tablet Take 7.5 mg by mouth twice daily. - lamoTRIgine (LAMICTAL) 25 mg tablet Take 2 tablets by mouth daily at bedtime. - levothyroxine (SYNTHROID) 150 mcg tablet TAKE ONE TABLET BY MOUTH ONCE DAILY ON EMPTY STOMACH - somatropin (GENOTROPIN) 0.6 mg/0.25 mL injection Inject 0.6 mg subcutaneously once daily. - acetaminophen (TYLENOL) 325 mg tablet Take 2 tablets by mouth every 6 hours as needed for pain. - ibuprofen (MOTRIN) 600 mg tablet Take 1 tablet by mouth every 6 hours as needed for pain. Take with food. - ketoconazole (NIZORAL) 2 % shampoo - PARoxetine (PAXIL) 20 mg tablet Take 20 mg by mouth once daily. - iv contrast (will be provided with radiology test) MRI Pituitary Inject, intravenously, once for 1 dose. No IV access, insert saline lock prior to the beginning of sedation, infusion, injection of imaging exam. Discontinue saline lock post exam. If Pt. has a central line or IVAD, may access for administration according to line specific nursing protocol. Once exam is complete flush line and de-access according to line specific nursing (more content not included)... Normal [facility] HPV W/GENOTYPE THIN PREPon 0 08-12-2022 HPV 16 Ag Ql (Unsp spec) Negative Normal Negative for HPV DNA high risk type 16 by PCR [facility] Comment on above: Order Comment: Speci men Type: BLOOD SPECIMEN Ordering Facility: [facility] Address: [address] [place] [address] Performed By: #### I LGF1 #### [facility] CLIA [id number] [address] [place] [address] [place] HPV 18 Ag Ql (Unsp spec) Negative Normal Negative for HPV DNA high risk type 18 by PCR [facility] Comment on above: Order Comment: Speci men Type: BLOOD SPECIMEN Ordering Facility: [facility] Address: [address] [place] [address] Performed By: #### I LGF1 #### [facility] CLIA [id number] [address] [place] [address] [place] HPV 31+33+35+39+45+51+ 52+56+58+59+66+68 DNA JOHN+probe Ql (Cvx) Negative for HPV DNA high risk types: 31,33,35,39,45,51,52,56,58, 59,66,68 by PCR. Normal Negative for HPV DNA high risk types: 31,33,35,39, 45,51,52,56, 58,59,66,68 by PCR. [facility] Comment on above: Order Comment: Speci men Type: BLOOD SPECIMEN Ordering Facility: [facility] Address: [address] [place] [address] Performed By: #### I LGF1 #### [facility] CLIA [id number] [address] [place] [address] [place] PAP FLUID CERVICAL SCREENING on 08-12-2022 CASE REPORT Normal [facility] Comment on above: Order Comment: Speci men Type: BLOOD SPECIMEN Ordering Facility: [facility] Address: [address] [place] [address] Result Comment: Gyne cologic Cytology Report Case: [id number] Authorizing Provider: Maxim Henry MD Collected: 08/12/2022 11:21 AM Ordering Location: Obstetrics/Gynecology Received: 08/13/2022 09:59 AM First Screen: TIFFANY Mullen, ASCP Pathologist: Franklin Serrano MD Specimen: Pap, Transportation Maintenance Worker, Screening, CERVICAL SCREENING FLUID Performed By: #### I LGF1 #### [facility] CLIA [id number] CLINICAL HISTORY ROUTINE EXAM Normal [facility] Comment on above: Order Comment: Speci men Type: BLOOD SPECIMEN Ordering Facility: [facility] Address: [address] [place] [address] Result Comment: PREV IOUS ABNORMAL Performed By: #### I LGF1 #### [facility] CLIA [id number] [facility] [address] CYTOLOGY INTERPRETATION PAP Abnormal [facility] Comment on above: Order Comment: Speci men Type: BLOOD SPECIMEN Ordering Facility: [facility] Address: [address] [place] [address] Result Comment: Epit helial cell abnormality. Atypical squamous cells of undetermined significance (ASC-US) Performed By: #### I LGF1 #### [facility] CLIA [id number] [address] [place] [address] FINAL DIAGNOSIS Normal [facility] Comment on above: Order Comment: Speci men Type: BLOOD SPECIMEN Ordering Facility: [facility] Address: [address] [place] [address] Result Comment: A - CERVICAL SCREENING FLUID Satisfactory for interpretation Epithelial cell abnormality. Atypical squamous cells of undetermined significance (ASC-US) Performed By: #### I LGF1 #### [facility] CLIA [id number] [address] [place] [address] OF [place] FINAL PERFORMING LAB Normal [facility] Comment on above: Order Comment: Speci men Type: BLOOD SPECIMEN Ordering Facility: [facility] Address: [address] [place] [address] Result Comment: Tech nical component, pipeline controller screening performed at [facility], [facility]0 [facility] [address] CLIA# [id number] Diagnostic interpretation performed at [facility], [facility]0 [place] [id number] CLIA# [id number] Coverstitch Machine Operator: Zion Beasley M.D. Performed By: #### I LGF1 #### [facility] CLIA [id number] [address] [place] [address] [place] HPV REQUESTED? Yes, Reflex HPV for ASCUS Normal [facility] Comment on above: Order Comment: Speci men Type: BLOOD SPECIMEN Ordering Facility: [facility] Address: [address] [place] [address] Performed By: #### I LGF1 #### [facility] CLIA [id number] [address] [place] [address] [place] LMP 07/29/22 Normal [facility] Comment on above: Order Comment: Speci men Type: BLOOD SPECIMEN Ordering Facility: [facility] Address: [address] [place] [address] Performed By: #### I LGF1 #### [facility] CLIA [id number] [address] [place] [address] [place] PAP DISCLAIMER COMMENT The Pap Smear is a screening test for cervical cancer. False negative results occur with all screening tests, emphasizing the need for rescreening at recommended intervals, and clinical correlation. Normal [facility] Comment on above: Order Comment: Speci men Type: BLOOD SPECIMEN Ordering Facility: [facility] Address: [address] [place], [place] [address] Performed By: #### I LGF1 #### [facility] CLIA [id number] [address] [place] [address] [place] PAP ALLERGIST COMMENT This specimen has be en analyzed by the ThinPrep Imaging System, an automated imaging and review system, which assists the laboratory in evaluating cells on ThinPrep Pap tests. Following automated imaging, selected cole from every slide are reviewed by a pipeline controller. Normal [facility] Comment on above: Order Comment: Speci men Type: BLOOD SPECIMEN Ordering Facility: [facility] Address: [address] [id number] Performed By: #### I LGF1 #### [facility] CLIA [id number] [address] [place] [address] OF [place] HEPATITIS PANEL, ACUTEon HBsAg Screen Negative Normal Negative [facility] Comment on above: Performed By: #### H EPACUT ####[facility] [address] [place], [place] [address]Dr. David Morillo HCV AB Non-Reactive Normal Non Reactive [facility] Comment on above: Performed By: #### H EPACUT ####[facility] [address] [place] [address]Dr. David Morillo Hep A Ab, IgM Negative Normal Negative [facility] Comment on above: Performed By: #### H EPACUT ####[facility] [address] [place] [id number]. David Morillo Hep B Core Ab, IgM Negative Normal Negative [facility] Comment on above: Performed By: #### H EPACUT ####[facility] [address] [place] [id number]. David Morillo Interpretation: Comment Normal [facility] Comment on above: Result Comment: Not infected with HCV unless early or acute infection is suspected (which may be delayed in an immunocompromised individual), or other evidence exists to indicate HCV infection. Performed By: #### H EPACUT ####[facility] [address] [place] [id number]. David Morillo US SINGLE QUAD RT UPPERon US SINGLE QUAD RT UPPER EXAMINATION: US SINGLE QUAD RT UPPER HISTORY: Blood chemistry abnormal COMPARISON: No relevant comparison available. FINDINGS: The visualized pancreas is normal. The liver is prominent in size measuring 21.3 cm in length. Normal contour. Diffuse increase echotexture with no focal mass. Hepatopedal flow in the main portal vein. The gallbladder is normal in size. The wall measures 1.7 mm. Negative sonographic Caceres sign. The common bile duct measures 3.6 mm. The right kidney is normal in appearance measuring 12.1 x 5.3 x 5.2 cm IMPRESSION: Echogenic liver with mild hepatomegaly. Consider hepatic steatosis Electronically authenticated by: MARY BROWN Date: 2022-08-01 08:10 Normal [facility] CBC AUTO DIFFon 07-29-2022 BASO # 0.1 103/ul Normal 0.0-0.1 [facility] Comment on above: Performed By: #### C BC ####[facility] [address] [place], [place] [address]Dr. David Morillo Basophils/100 WBC (Bld) 0.7 % Normal 0.2-2.0 [facility] Comment on above: Performed By: #### C BC ####[facility] [address] [place], [place] [address]DrJessica Morillo EO # 0.4 103/ul Normal 0.0-0.7 [facility] Comment on above: Performed By: #### C BC ####[facility] [address] [place], [place] [address]DrJessica Morillo Eosinophils/100 WBC (Bld) 3.5 % Normal 0.9-7.0 [facility] Comment on above: Performed By: #### C BC ####[facility] [address] [place], [place] [address]DrJessica Morillo Erythrocyte distribution width (RBC) [Ratio] 13.3 % Normal 11.0-15.0 [facility] Comment on above: Performed By: #### C BC ####[facility] [address] [place], [place] [address]DrJessica Morillo Hematocrit (Bld) [Volume fraction] 39.4 % Normal 36.0-48.0 [facility] Comment on above: Performed By: #### C BC ####[facility] [address] [place] [address]DrJessica Morillo Hemoglobin (Bld) [Mass/Vol] 13.3 g/dL Normal 12.0-16.0 [facility] Comment on above: Performed By: #### C BC ####[facility] [address] [place] [address]DrJessica Morillo IG # 0.07 10e3/ul Critically high 0.00-0.03 [facility] Comment on above: Performed By: #### C BC ####[facility] [address] [place] [address]DrJessica Morillo IG % 0.7 % Critically high 0.0-0.5 [facility] Comment on above: Performed By: #### C BC ####[facility] [address] [place], [place] [address]DrJessica Morillo LYMPH # 3.1 103/ul Normal 1.2-3.8 [facility] Comment on above: Performed By: #### C BC ####[facility] [address] [place], [place] [address]DrJessica Morillo Lymphocytes/100 WBC (Bld) 31.3 % Normal 20.5-60.0 [facility] Comment on above: Performed By: #### C BC ####[facility] [address] [place] [address]DrJessica Morillo MANUAL DIFF REQ NO Normal [facility] Comment on above: Performed By: #### C BC ####[facility] [address] [place] [address]DrJessica Morillo MCH (RBC) [Entitic mass] 28.4 pg Normal 26.7-34.0 [facility] Comment on above: Performed By: #### C BC ####[facility] [address] [place] [address]DrJessica Morillo MCHC (RBC) [Mass/Vol] 33.8 g/dL Normal 29.9-35.2 [facility] Comment on above: Performed By: #### C BC ####[facility] [address] [place] [address]DrJessica David Ilia MCV (RBC) [Entitic vol] 84.2 fL Normal 81.0-99.0 [facility] Comment on above: Performed By: #### C BC ####[facility] [address] [place] [address]DrJessica Morillo MONO # 0.5 103/ul Normal 0.3-0.8 [facility] Comment on above: Performed By: #### C BC ####[facility] [address] [place] [address]DrJessica Morillo Monocytes/100 WBC (Bld) 5.3 % Normal 1.7-12.0 [facility] Comment on above: Performed By: #### C BC ####[facility] [address] [place], [place] [address]DrJessica Morillo NEUT # 5.8 103/ul Normal 1.4-6.5 [facility] Comment on above: Performed By: #### C BC ####[facility] [address] [place], [place] [address]DrJessica Morillo Neutrophils/100 WBC (Bld) 58.5 % Normal 43.0-75.0 [facility] Comment on above: Performed By: #### C BC ####[facility] [address] [place], [place] [address]DrJessica Morillo Platelet mean volume (Bld) [Entitic vol] 10.1 fL Normal 9.5-13.5 [facility] Comment on above: Performed By: #### C BC ####[facility] [address] [place], [place] [id number]. David Morillo PLT 262 103/ul Normal 150-450 [facility] Comment on above: Performed By: #### C BC ####[facility] [address] [place] [id number] Morillo RBC 4.68 106/ul Normal 4.20-5.40 [facility] Comment on above: Performed By: #### C BC ####[facility] [address] [place] [address]Dr. David Morillo WBC 9.9 103/ul Normal 4.0-11.0 [facility] Comment on above: Performed By: #### C BC ####[facility] [address] [place] [address]Dr. David Morillo FREE T3on 07-29-2022 FREE T3 2.22 pg/mlL Normal 2.18-3.98 [facility] Comment on above: Performed By: #### F T3, BMP, LIPID, TSH, LIVER #### [facility] [address] [address] [address] David Morillo FREE T4on 07-29-2022 Free T4 [Mass/Vol] 0.89 ng/dL Normal 0.76-1.46 [facility] Comment on above: Performed By: #### F T4 #### [facility] [address] [place] [address] Dr. David Morillo GLYCOHEMOGLOBIN A1Con 2022 ADA RECOMMENDATION SEE BELOW Normal [facility] Comment on above: Result Comment: ADA RECOMMENDED LIMIT 4.0 - 6.0 ADA THERAPEUTIC TARGET < 7.0 ACTION SUGGESTED > 7.0 Performed By: #### A 1C #### [facility] [address] [place] [address] Dr. David Morillo Glucose [Mass/Vol] 103 mg/dL Normal [facility] Comment on above: Performed By: #### A 1C #### [facility] [address] [address] [address] David Morillo HbA1c (Bld) [Mass fraction] 5.2 % Normal 4.5-6.2 [facility] Comment on above: Performed By: #### A 1C #### [facility] [address] [place] [address] Dr. David Morillo LIPID PROFILEon 07-29-2022 CHOL-HDL RATIO NORM SEE BELOW Normal [facility] Comment on above: Result Comment: 3.3 - 4.4 LOW RISK 4.4 - 7.1 AVERAGE RISK 7.1 - 11.0 MODERATE RISK >11.0 HIGH RISK Performed By: #### F T3, BMP, LIPID, TSH, LIVER #### [facility] [address] [address] [address] aDvid Morillo Cholesterol [Mass/Vol] 188 mg/dL Normal <=200 [facility] Comment on above: Performed By: #### F T3, BMP, LIPID, TSH, LIVER #### [facility] [address] [address] [address] David Morillo Cholesterol in HDL [Mass/Vol] 35 mg/dL Critically low 40-60 [facility] Comment on above: Performed By: #### F T3, BMP, LIPID, TSH, LIVER #### [facility] [address] [place] [address] Dr. David Morillo Cholesterol in LDL [Mass/Vol] 89.8 mg/dL Normal [facility] Comment on above: Performed By: #### F T3, BMP, LIPID, TSH, LIVER #### [facility] [address] [place] [address] Dr. David Morillo Cholesterol.total/ Cholesterol in HDL [Mass ratio] 5.4 {ratio} Normal [facility] Comment on above: Performed By: #### F T3, BMP, LIPID, TSH, LIVER #### [facility] [address] [place] [address] Dr. David Morillo HDL NORMAL > or = 60 mg/dl - LO W CARDIOVASCULAR RISK <40 mg/dl - HIGH CARDIOVASCULAR RISK Normal [facility] Comment on above: Performed By: #### F T3, BMP, LIPID, TSH, LIVER #### [facility] [address] [place] [address] Dr. David Morillo LDL CALC NORMAL SEE BELOW Normal [facility] Comment on above: Result Comment: <100 mg/dl OPTIMAL 100 - 129 mg/dl NEAR OR ABOVE OPTIMAL 130 - 159 mg/dl BORDERLINE HIGH 160 - 189 mg/dl HIGH >190 mg/dl VERY HIGH Performed By: #### F T3, BMP, LIPID, TSH, LIVER #### [facility] [address] [place] [address] Dr. David Morillo Triglyceride [Mass/Vol] 316 mg/dL Critically high <=150 [facility] Comment on above: Performed By: #### F T3, BMP, LIPID, TSH, LIVER #### [facility] [address] [address] [address] David Morillo VLDL CALC 63.2 mg/dL Normal [facility] Comment on above: Performed By: #### F T3, BMP, LIPID, TSH, LIVER #### [facility] [address] [address] [address] David Morillo LIVER PROFILEon 07-29-2022 Albumin [Mass/Vol] 3.3 g/dL Critically low 3.4-5.0 [facility] Comment on above: Performed By: #### F T3, BMP, LIPID, TSH, LIVER #### [facility] [address] [address] [address] David Morillo Albumin/Globulin [Mass ratio] 0.8 {ratio} Normal [facility] Comment on above: Performed By: #### F T3, BMP, LIPID, TSH, LIVER #### [facility] [address] [address] [address] David Morillo ALP [Catalytic activity/Vol] 74 U/L Normal 46-116 [facility] Comment on above: Performed By: #### F T3, BMP, LIPID, TSH, LIVER #### [facility] [address] [address] [address] David Morillo ALT [Catalytic activity/Vol] 86 U/L Critically high 14-59 [facility] Comment on above: Performed By: #### F T3, BMP, LIPID, TSH, LIVER #### [facility] [address] [address] [address] David Morillo AST [Catalytic activity/Vol] 85 U/L Critically high 15-37 [facility] Comment on above: Performed By: #### F T3, BMP, LIPID, TSH, LIVER #### [facility] [address] [address] [address] David Morillo BILI, CONJUGATED 0.1 mg/dL Normal 0.0-0.2 [facility] Comment on above: Performed By: #### F T3, BMP, LIPID, TSH, LIVER #### [facility] [address] [place] [address] Dr. David Morillo Bilirubin [Mass/Vol] 0.3 mg/dL Normal 0.2-1.0 [facility] Comment on above: Performed By: #### F T3, BMP, LIPID, TSH, LIVER #### [facility] [address] [place] [address] Dr. David Morillo Globulin (S) [Mass/Vol] 4.3 g/dL Normal [facility] Comment on above: Performed By: #### F T3, BMP, LIPID, TSH, LIVER #### [facility] [address] [place] [address] Dr. David Morillo Protein [Mass/Vol] 7.6 g/dL Normal 6.4-8.2 [facility] Comment on above: Performed By: #### F T3, BMP, LIPID, TSH, LIVER #### [facility] [address] [place] [address] Dr. David Morillo PROF CHEM 8 (BAS METB)on Anion gap [Moles/Vol] 13.3 mmol/L Normal [facility] Comment on above: Performed By: #### F T3, BMP, LIPID, TSH, LIVER #### [facility] [address] [place] [address] Dr. David Morillo Calcium [Mass/Vol] 9.0 mg/dL Normal 8.5-10.1 [facility] Comment on above: Performed By: #### F T3, BMP, LIPID, TSH, LIVER #### [facility] [address] [place] [address] Dr. David Morillo Chloride [Moles/Vol] 102 mmol/L Normal 98-107 [facility] Comment on above: Performed By: #### F T3, BMP, LIPID, TSH, LIVER #### [facility] [address] [place] [address] Dr. David Morillo CO2 [Moles/Vol] 27.8 mmol/L Normal 21.0-32.0 [facility] [place] [facility] Comment on above: Performed By: #### F T3, BMP, LIPID, TSH, LIVER #### [facility] [address] [address] [address] David Morillo Creatinine [Mass/Vol] 0.84 mg/dL Normal 0.55-1.02 [facility] Comment on above: Performed By: #### F T3, BMP, LIPID, TSH, LIVER #### [facility] [address] [place] [address] Dr. David Morillo EGFR-AF GREEK >60 Normal >=60 [facility] Comment on above: Performed By: #### F T3, BMP, LIPID, TSH, LIVER #### [facility] [address] [place] [address] Dr. David Morillo EGFR-NON AF GREEK >60 Normal >=60 [facility] Comment on above: Performed By: #### F T3, BMP, LIPID, TSH, LIVER #### [facility] [address] [place] [address] Dr. David Morillo Glucose [Mass/Vol] 91 mg/dL Normal 74-106 [facility] Comment on above: Performed By: #### F T3, BMP, LIPID, TSH, LIVER #### [facility] [address] [place] [address] Dr. David Morillo Potassium [Moles/Vol] 4.1 mmol/L Normal 3.5-5.1 [facility] Comment on above: Performed By: #### F T3, BMP, LIPID, TSH, LIVER #### [facility] [address] [place] [address] Dr. David Morillo Sodium [Moles/Vol] 139 mmol/L Normal 136-145 [facility] Comment on above: Performed By: #### F T3, BMP, LIPID, TSH, LIVER #### [facility] [address] [place] [address] Dr. David Morillo Urea nitrogen [Mass/Vol] 10.0 mg/dL Normal 7.0-18.0 [facility] Comment on above: Performed By: #### F T3, BMP, LIPID, TSH, LIVER #### [facility] [address] [place], [place] [address] Dr. David Morillo Urea nitrogen/Creatinin e [Mass ratio] 11.9 mg/mg Normal [facility] Comment on above: Performed By: #### F T3, BMP, LIPID, TSH, LIVER #### [facility] [address] [place], [place] [address] Dr. David Morillo TSHon 07-29-2022 TSH 0.380 uIU/mL Normal 0.358-3.740 [facility] Comment on above: Performed By: #### F T3, BMP, LIPID, TSH, LIVER ####[facility] [address] [place], [place] [address]WlDr. David Morillo CNPNon 07-22-2022 CNPN Telephone (INTMLN) ANGELA NGUYEN ([id number]) 1985 F Date Time Provider Department 07/22/22 MICAELA LAURA INTMLOskar During your visit today, we recorded the following information about you: Zay Benton 07/22/2022 11:35 AM Signed [facility] is calling in stating that the patient has missed a couple of doses of the isturisa due to [employer] having a hard time to deliver last week. Please advise and call back with any questions. P: [phone] Allergies As of Date: 07/22/2022 (No Known Allergies) Date Reviewed: 01/02/2022 Reviewed by: Micaela Laura MD - Fully Assessed Reason for Visit: Refill Request [94] Prescriptions as of 06/20/2023 - semaglutide, weight loss, (WEGOVY) 0.25 mg/0.5 mL pen injector Inject 0.5 mL subcutaneously one time a week. BMI 42.45 - dexAMETHasone (DECADRON) 1 mg tablet Take dexamethasone 1 mg at bedtime and then get labs done the next morning - lamoTRIgine (LAMICTAL) 25 mg tablet Take 4 tablets by mouth daily at bedtime. - busPIRone (BUSPAR) 7.5 mg tablet Take 2 tablets by mouth twice daily. - levothyroxine (SYNTHROID) 150 mcg tablet TAKE ONE TABLET BY MOUTH ONCE DAILY ON EMPTY STOMACH - Insulin [place], Disposable, (BD ULTRAFINE III MINI PEN) 31 gauge x 3/16 Use with genotropin Pen daily - osilodrostat (ISTURISA) 5 mg tablet 15 mg twice a day - Desogestrel-Ethinyl Estradiol (APRI) 0.15-0.03 mg per tablet Take 1 tablet by mouth once daily. - ketoconazole (NIZORAL) 2 % shampoo - PARoxetine (PAXIL) 20 mg tablet Take 20 mg by mouth once daily. - iv contrast (will be provided with radiology test) MRI Pituitary Inject, intravenously, once for 1 dose. No IV access, insert saline lock prior to the beginning of sedation, infusion, injection of imaging exam. Discontinue saline lock post exam. If Pt. has a central line or IVAD, may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 Author Type: Physician Type: Progress Notes Filed: 06/25/2023 14:38 Note Text: Endocrinology/Initial Pituitary Assessment Note: VIRTUAL VISIT Patient is being evaluated today via a Virtual Visit using a HIPPA compliant platform, zoom via Can[employer]. It required patient-provider interaction for the medical decision making as documented below. Patient consented to treatment I have communicated my name and active licensure. The patient's identity and physical location were verified at the time of this visit. Either the patient or their legal pest control service representative has been informed of the risks and benefits of -- and alternatives to -- treatment through a remote evaluation and consents to proceed with the evaluation remotely. 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 She has been seen in our department by multiple endocrinologists. She underwent surgical resection x 2 in 2002, and 2003 followed by gamma knife radiation in 2004. She had persistent [place]'s and was treated with osilodrostat and clinical trials since 2012 with good response and has continued on that. Previous medications tried: Ketoconazole [elevated liver enzymes] stopped in 2012. 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 She was on Nutropin which was stopped in 2013 due to cost and insurance coverage. She has a history of elevated DHEA-S with normal testosterone thought to be secondary to [place] disease or underlying PCOS. She has acne that has been controlled this year. Her hair loss and hirsutism were slightly worse on osilodrostat DEXA scan 05/2020: Lumbar spine (L1-L2):0.921 g/cm2, Z-score -0.5 Left Femoral Neck: 0.969 g/cm2, Z-score 1.2 Left Total Hip: 1.241 g/cm2, Z-score 2.5 Patient Also described the following: Answers submitted by the patient for this visit: Core Review of Systems (Submitted on 06/25/2023) Fever : No Night sweats: No Recent unintentional weight change: No Nasal Congestion: Yes Hearing Loss: No Vision Disturbance: No A cough: Yes Difficulty Breathing?: Yes Chest pain: No Irregular heartbeat: No Leg Swelling: No Nausea: No Diarrhea: No Black tarry stools: No Difficulty Urinating?: No Awaken at Night More Than Once to Urinate?: Yes Joint pain or stiffness: Yes Muscle aches: Yes Leg or Foot Discomfort at Night?: Yes A rash: No Dizziness: Yes Headaches: Yes Memory Loss: No Seizures: No Past Medical History: 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) History of ovarian cystectomy 07/25/2021 bilateral History of right salpingectomy 07/25/2021 Irregular menstrual cycle Irregular periods Low grade squamous intraepithelial lesion (LGSIL) on cervical Pap smear Obesity, unspecified Polycystic ovaries Surgical History: PAST SURGICAL HISTORY Procedure Laterality Date ENDOCERVICAL CURETTAGE 03/16/2021 HYPOPHYSEC/EXC PITUITARY MIGUELINA TRANSNASAL/SEPTAL 07/2003 Transphenoidal hypophys HYPOPHYSEC/EXC PITUITARY MIGUELINA TRANSNASAL/SEPTAL 12/2003 Transphenoidal hypophys LEEP PROCEDURE ([facility] & PRESIDENT DEPT)_*FL 06/07/2010 MRI GAMMA KNIFE LOCAL WWO CONT 2005 pituitary for cushings OVARIAN CYSTECTOMY Bilateral 07/25/2021 serous cystoadenoma SALPINGECTOMY Right 07/25/2021 laparoscopic with excision of bilateral cysts VAGINOSCOPY 03/26/2021 Family Medical History: FAMILY HISTORY Problem Relation Age of Onset Thyroid Paternal Grandmother Heart Other maternal great grandmother Social History: Social History Tobacco Use Smoking status: Never Smokeless tobacco: Never Vaping Use Vaping Use: Never used Substance Use Topics Alcohol use: Yes Alcohol/week: 2.6 standard drinks of alcohol Types: 2 Mixed Drinks per week Comment: social Drug use: Yes Comment: marijuana daily Allergies: ALLERGIES No Known Allergies Current medications: Current Outpatient Medications Medication Sig semaglutide, weight loss, (WEGOVY) 0.25 mg/0.5 mL pen injector Inject 0.5 mL subcutaneously one time a week. BMI 42.45 dexAMETHasone (DECADRON) 1 mg tablet Take dexamethasone 1 mg at bedtime and then get labs done the next morning lamoTRIgine (LAMICTAL) 25 mg tablet Take 4 tablets by mouth daily at bedtime. busPIRone (BUSPAR) 7.5 mg tablet Take 2 tablets by mouth twice daily. levothyroxine (SYNTHROID) 150 mcg tablet TAKE ONE TABLET BY MOUTH ONCE DAILY ON EMPTY STOMACH Insulin [place], Disposable, (BD ULTRAFINE III MINI PEN) 31 gauge x 3/16 Use with genotropin Pen daily osilodrostat (ISTURISA) 5 mg tablet 15 mg twice a day Desogestrel-Ethinyl Estradiol (APRI) 0.15-0.03 mg per tablet Take 1 tablet by mouth once daily. ketoconazole (NIZORAL) 2 % shampoo (more content not included)... [facility] 05-30-2023 Miscellaneous Notes Received a prior authorization request from [facility] via Blinkit for patient's prescription: semaglutide, weight loss, (WEGOVY) 0.25 mg/0.5 mL pen injector [employer]: [id number] Submitted request via fax to Endocrine Prior Authorizations. Transmitted successfully. 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 Author Type: Physician Type: Progress Notes Filed: 05/26/2023 10:55 AM Note Text: Endocrinology Diabetes Follow Up Angela Nguyen, office visit for follow up of: Jensen's disease Last visit: 04/2023 PCP is Roberto Nolasco MD Has google duo History of Present Illness Angela Nguyen is a 38 year old female with PMH of Cyclic [place]'s disease (dx at age 17 years) s/p surgical resection x2 (2002, 2003) and gamma knife radiation (2004) with persistent [place] now controlled on osilodrostat, secondary hypothyroidism, secondary amenorrhea and Obesity, here for follow up ONEILL stable - Come and go (not on medical therapy for it) No changes in vision No changes in striae Hirsutism - worse lately OCP did not help Gained 20 lbs in the past month 1 mg DST not suppressed 24 hour urine cortisol WNL She will be completing the salivary cortisol and MRI soon Has not been able to continue with the Genotropin (approved but has not received the prescription yet) On Isturisa - on 15 mg BID LT4 150 mcg daily and OCP daily DEXA scan in 05/2020 WNL Norditropin not covered Started on Genotropin 0.4 mg daily - insurance did not cover the 0.6 Had COVID-19 in 06/2020 - had poor appettie Has lost 24 pounds since Grandfather from COVID-19 (vaccinated) Cousin from a heat stroke Dx with ovarian cyst removed in 07/2021 - benign She has noticed significant improvement in energy, weight, muscle mass, and mood Stopping the genotropin has caused detrimental effect on her body composition and metabolic parameters Bone density in 05/2020 was WNL Acne not as bad Hair loss and hirsutism slightly worse on osilodrostat Dx after abnormal weight gain and secondary amenorrhea around age 17 years (2002) Saw Endocrinology at [place] who referred her to Pediatric Endo at [facility] She has been followed by Drs. Hancock and Robert over the past few years Treated with LCI 699 (osilodrostat) as part of a clinical trial since 2012 with good response Currently on 15 mg twice a day Drug now approved by the FDA Also on LT4 150 mcg daily Could not tolerate ketoconazole (elevated liver enzymes) - stopped in 2012 Was on contraception initially for the PCC749 study Had an abnormal Argenine/GHRH stimulation test consistent with severe GH deficiency Was on Neutropin that she stopped prior to 2013 due to cost and insurance coverage BMD WNL in 09/2005 and in 05/2020 Hx of elevated DHEAS with normal testosterone which may be secondary to Jensen disease or underlying PCOS Tried depo-porvera - stopped due to side effects Menstrual cycles were irregular in the past Current medications: Levothyroxine 150 mcg daily Osilodrostat: 15 mg BID Paxil 20 mg OD Multivitamin FHx: DM2: Paternal GM Past History, Medications, Allergies 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) History of ovarian cystectomy 07/25/2021 bilateral History of right salpingectomy 07/25/2021 Irregular menstrual cycle Irregular periods Low grade squamous intraepithelial lesion (LGSIL) on cervical Pap smear Obesity, unspecified Polycystic ovaries PAST SURGICAL HISTORY Procedure Laterality Date ENDOCERVICAL CURETTAGE 03/16/2021 HYPOPHYSEC/EXC PITUITARY MIGUELINA TRANSNASAL/SEPTAL 07/2003 Transphenoidal hypophys HYPOPHYSEC/EXC PITUITARY MIGUELINA TRANSNASAL/SEPTAL 12/2003 Transphenoidal hypophys LEEP PROCEDURE ([facility] & PRESIDENT DEPT)_*FL 06/07/2010 MRI GAMMA KNIFE LOCAL WWO CONT 2005 pituitary for cushings OVARIAN CYSTECTOMY Bilateral 07/25/2021 serous cystoadenoma SALPINGECTOMY Right 07/25/2021 laparoscopic with excision of bilateral cysts VAGINOSCOPY 03/26/2021 Current Outpatient Medications Medication Sig Dispense Refill dexAMETHasone (DECADRON) 1 mg tablet Take dexamethasone 1 mg at bedtime and then get labs done the next morning 1 tablet 0 lamoTRIgine (LAMICTAL) 25 mg tablet Take 4 tablets by mouth daily at bedtime. busPIRone (BUSPAR) 7.5 mg tablet Take 2 tablets by mouth twice daily. levothyroxine (SYNTHROID) 150 mcg tablet TAKE ONE TABLET BY MOUTH ONCE DAILY ON EMPTY STOMACH 90 tablet 3 Insulin [place], Disposable, (BD ULTRAFINE III MINI PEN) 31 gauge x 3/16 Use with genotropin Pen daily 500 Each 3 osilodrostat (ISTURISA) 5 mg tablet 15 mg twice a day 540 tablet 3 Desogestrel-Ethinyl Estradiol (APRI) 0.15-0.03 mg per tablet Take 1 tablet by mouth once daily. 84 tablet 4 ketoconazole (NIZORAL) 2 % shampoo PARoxetine (PAXIL) 20 mg tablet Take 20 mg by mouth once daily. iv contrast (will be provided with radiology test) MRI Pituitary Inject, intravenously, once for 1 dose. No IV access, insert saline lock prior to the beginning of sedation, infusion, injection of imaging exam. Discontinue saline lock post exam. If Pt. h (more content not included)... [facility] 05-26-2023 Instructions Micaela Laura MD - 05/26/2023 10:46 AM EST Please start you on Wegovy 0.25 mg weekly You can see how to inject Wegovy at: [email or web address] Please keep your follow up with Dr. Perez documented in this encounter [facility] 05-26-2023 History of Present illness Narrative Endocrinology Diabetes Follow Up Angela Nguyen, office visit for follow up of: [place]'s disease Last visit: 04/2023 PCP is Roberto Nolasco MD Has google duo History of Present Illness Angela Nguyen is a 38 year old female with PMH of Cyclic [place]'s disease (dx at age 17 years) s/p surgical resection x2 (2002, 2003) and gamma knife radiation (2004) with persistent [place] now controlled on osilodrostat, secondary hypothyroidism, secondary amenorrhea and Obesity, here for follow up ONEILL stable - Come and go (not on medical therapy for it) No changes in vision No changes in striae Hirsutism - worse lately OCP did not help Gained 20 lbs in the past month 1 mg DST not suppressed 24 hour urine cortisol WNL She will be completing the salivary cortisol and MRI soon Has not been able to continue with the Genotropin (approved but has not received the prescription yet) On Isturisa - on 15 mg BID LT4 150 mcg daily and OCP daily DEXA scan in 05/2020 WNL Norditropin not covered Started on Genotropin 0.4 mg daily - insurance did not cover the 0.6 Had COVID-19 in 06/2020 - had poor appettie Has lost 24 pounds since Grandfather from COVID-19 (vaccinated) Cousin from a heat stroke Dx with ovarian cyst removed in 07/2021 - benign She has noticed significant improvement in energy, weight, muscle mass, and mood Stopping the genotropin has caused detrimental effect on her body composition and metabolic parameters Bone density in 05/2020 was WNL Acne not as bad Hair loss and hirsutism slightly worse on osilodrostat Dx after abnormal weight gain and secondary amenorrhea around age 17 years (2002) Saw Endocrinology at [place] who referred her to Pediatric Endo at [facility] She has been followed by Drs. Hancock and Robert over the past few years Treated with LCI 699 (osilodrostat) as part of a clinical trial since 2012 with good response Currently on 15 mg twice a day Drug now approved by the FDA Also on LT4 150 mcg daily Could not tolerate ketoconazole (elevated liver enzymes) - stopped in 2012 Was on contraception initially for the MOD393 study Had an abnormal Argenine/GHRH stimulation test consistent with severe GH deficiency Was on Neutropin that she stopped prior to 2013 due to cost and insurance coverage BMD WNL in 09/2005 and in 05/2020 Hx of elevated DHEAS with normal testosterone which may be secondary to [place] disease or underlying PCOS Tried depo-porvera - stopped due to side effects Menstrual cycles were irregular in the past Current medications: Levothyroxine 150 mcg daily Osilodrostat: 15 mg BID Paxil 20 mg OD Multivitamin FHx: DM2: Paternal GM 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) History of ovarian cystectomy 07/25/2021 bilateral History of right salpingectomy 07/25/2021 Irregular menstrual cycle Irregular periods Low grade squamous intraepithelial lesion (LGSIL) on cervical Pap smear Obesity, unspecified Polycystic ovaries PAST SURGICAL HISTORY Procedure Laterality Date ENDOCERVICAL CURETTAGE 03/16/2021 HYPOPHYSEC/EXC PITUITARY MIGUELINA TRANSNASAL/SEPTAL 07/2003 Transphenoidal hypophys HYPOPHYSEC/EXC PITUITARY MIGUELINA TRANSNASAL/SEPTAL 12/2003 Transphenoidal hypophys LEEP PROCEDURE ([facility]IDENT DEPT)_*FL 06/07/2010 MRI GAMMA KNIFE LOCAL WWO CONT 2005 pituitary for cushings OVARIAN CYSTECTOMY Bilateral 07/25/2021 serous cystoadenoma SALPINGECTOMY Right 07/25/2021 laparoscopic with excision of bilateral cysts VAGINOSCOPY 03/26/2021 Current Outpatient Medications Medication Sig Dispense Refill dexAMETHasone (DECADRON) 1 mg tablet Take dexamethasone 1 mg at bedtime and then get labs done the next morning 1 tablet 0 lamoTRIgine (LAMICTAL) 25 mg tablet Take 4 tablets by mouth daily at bedtime. busPIRone (BUSPAR) 7.5 mg tablet Take 2 tablets by mouth twice daily. levothyroxine (SYNTHROID) 150 mcg tablet TAKE ONE TABLET BY MOUTH ONCE DAILY ON EMPTY STOMACH 90 tablet 3 Insulin [place], Disposable, (BD ULTRAFINE III MINI PEN) 31 gauge x 3/16 Use with genotropin Pen daily 500 Each 3 osilodrostat (ISTURISA) 5 mg tablet 15 mg twice a day 540 tablet 3 Desogestrel-Ethinyl Estradiol (APRI) 0.15-0.03 mg per tablet Take 1 tablet by mouth once daily. 84 tablet 4 ketoconazole (NIZORAL) 2 % shampoo PARoxetine (PAXIL) 20 mg tablet Take 20 mg by mouth once daily. iv contrast (will be provided with radiology test) MRI Pituitary Inject, intravenously, once for 1 dose. No IV access, insert saline lock prior to the beginning of sedation, infusion, injection of imaging exam. Discontinue saline lock post exam. If Pt. has a central line or IVAD, may access for administration according to line specific nursing protocol. Once exam is complete flush line and de-access according to line specific nursing protocol in the MR contrast administration guidelines link. 1 Each 0 MULTIVITAMIN ORAL Take 1 tablet by mouth once daily. No current facility-administered medications for this visit. ALLERGIES No Known Allergies FAMILY HISTORY Problem Relation Age of Onset Thyroid Paternal Grandmother Heart Other maternal great grandmother Social History Tobacco Use Smoking status: Never Smokeless tobacco: Never Vaping Use Vaping Use: Never used Substance Use Topics Alcohol use: Yes Alcohol/week: 2.6 standard drinks of alcohol Types: 2 Mixed Drinks per week Comment: social Drug use: Yes Comment: marijuana daily Review of Systems GENERAL:No weight loss, malaise or fevers HEENT:Negative for frequent or significant headaches NECK:Negative for lumps, goiter, pain and significant neck swelling RESPIRATORY: Negative for cough, wheezing or shortness of breath CARDIOVASCULAR: Negative for chest pain, leg swelling or palpitations GASTROINTESTINAL: No nausea, vomiting, or diarrhea Physical examination BP 156/97 Pulse 99 Resp 16 Wt 112.2 kg (247 lb 4.8 oz) LMP 05/17/2023 (Approximate) SpO2 96% BMI 42.45 kg/m GENERAL: Well nourished, well hydrated, in no distress and oriented x 3 COMMUNICATION: Hearing: normal; VOICE: normal. PERRL, visual field intact EYES: no thyroid eye signs, Fundi normal and cornea normal. EOMI NECK: no visible nodules or goiter, no bruit, no tenderness and no adenopathies THYROID: smooth, non-tender, 15-20 gram, firm, and No palpable nodules EXTREMITIES: No clubbing, no edema, no cyanosis and normal nails NEURO: normal strength, no tremor and normal reflexes SKIN: No rash or lesion ENDOCRINE: No cushingoid or acromegalic features Previous Laboratory Results Component ACTH DHEA-S Cortisol Latest Ref Rng & Units 8 - 42 pg/mL 41.0 - 247.0 ug/dL ug/dL 01/18/2003 06/22/2003 50 621.1 (A) 38.6 06/27/2003 07/05/2003 67 (A) 29.4 07/05/2003 2805 (A) 07/05/2003 850 (A) 07/05/2003 60 (A) 28.1 07/05/2003 3033 (A) 07/05/2003 661 (A) 07/05/2003 70 (A) 28.9 07/05/2003 7175 (A) 07/05/2003 1424 (A) 07/05/2003 82 (A) 27.9 07/05/2003 5175 (A) 07/05/2003 1917 (A) 07/05/2003 98 (A) 33.7 07/05/2003 3102 (A) 07/05/2003 1806 (A) 07/05/2003 104 (A) 33.8 07/05/2003 4900 (A) 07/05/2003 2355 (A) 08/02/2003 37 29.3 08/31/2003 35 11/09/2003 33 12/07/2003 37 12/30/2003 45 34.6 04/28/2006 37 315.7 (H) 10/27/2007 55 (H) 410.0 (H) 39.1 09/18/2011 70 (H) 472.9 (H) 01/15/2012 86 (H) 22.2 04/30/2012 83 (H) 353.3 (H) 26.9 06/29/2012 91 (H) 495.2 (H) 24.0 08/27/2012 67 (H) 368.1 (H) 16.4 09/07/2012 62 (H) 24.8 09/29/2012 73 (H) 23.4 Component Creatinine mg/day, Ur (UFRCRT) Free Cortisol ug/L, Urine Volume, Ur (UFRCRT) Free Cortisol ug/day, Urine Cortisol ug/g Bed Spring Maker, Ur ([facility]) Free Cortisol, Urine Free Cortisol, Serum Latest Ref Rng & Units 09/16/2005 1281 1281 35.2 04/11/2006 1298 1273 28.9 10/29/2007 1168 23.60 1229 29.0 11/10/2007 0.46 11/10/2007 1.98 11/10/2007 3.42 09/25/2011 1486 . . . 28.40 . . . 2123 . . . 60.3 (H) . . . 40.57 . . . 04/30/2012 1269 . . . 98.70 . . . 1547 . . . 152.7 (H) . . . 120.37 . . . 06/22/2012 939 . . . 23.30 . . . 1444 . . . 33.6 . . . 35.85 . . . 06/29/2012 1.86 . . . 08/27/2012 0.81 . . . 09/07/2012 937 . . . 55.30 . . . 1442 . . . 79.7 (H) . . . 85.08 . . . Component Cortisol Basal Cortisol 30 min Cortisol 60 min Latest Ref Rng & Units ug/dL ug/dL ug/dL 08/31/2003 23.4 64.8 54.7 11/09/2003 41.5 53.4 53.9 01/18/2004 25.7 45.9 50.9 04/24/2005 21.0 51.8 43.0 Component Cortisol, Saliva AM Cortisol Saliva Midnight Cortisol Saliva Cortisol, 24 Hr Urine Latest Ref Rng & Units 20 - 100 ug/24hr 01/18/2003 258.0 (A) 06/27/2003 2136 723.7 (A) 09/21/2003 56.5 11/14/2003 708 12/12/2003 448.9 (A) 01/18/2004 428 01/20/2004 108.2 (A) 03/12/2004 206.1 (A) 03/14/2004 163 05/22/2004 774 05/23/2004 59.2 08/06/2004 462.9 (A) 08/09/2004 117 10/07/2004 541.6 (A) 04/09/2005 39.0 04/16/2005 132 06/12/2005 33.9 06/13/2005 191 09/24/2005 127 04/11/2006 42 11/19/2007 222 11/24/2007 128 09/18/2011 09/24/2011 67 . . . Component Latest Ref Rng & Units 10/07/2016 LH mU/mL 0.3 Estradiol 17B pg/mL 47 FSH mU/mL 0.4 Component Latest Ref Rng & Units 06/02/2006 Growth Hormone, Basal 0.0 - 3.0 ng/mL 0.2 Growth Hormone, 30 min ng/mL 1.9 Growth Hormone, 60 min ng/mL 1.8 Growth Hormone, 120 min ng/mL 0.4 Growth Hormone 0.0 - 3.0 ng/mL 0.7 Component IGF- I GH Latest Ref Rng & Units 83 - 280 ng/mL 0.0 - 3.0 ng/mL 08/31/2003 165 (A) 11/09/2003 100 (A) 11/08/2005 59 (L) 04/28/2006 40 (L) 06/02/2006 0.7 10/27/2007 57 (L) 09/18/2011 74 (L) 05/30/2020 47 (L) Component Latest Ref Rng & Units 09/18/2011 10/07/2016 05/30/2020 Estradiol 17B pg/mL 46 47 45 FSH mU/mL 1.6 0.4 0.4 LH mU/mL 0.3 0.4 Component Testosterone Testosterone Free % Testosterone Free DHEA-S Latest Ref Rng & Units 20 - 70 ng/dL 0.3 - 1.9 % 1.0 - 9.0 pg/mL 41.0 - 247.0 ug/dL 06/22/2003 61 (A) 1.7 10.4 (A) 621.1 (A) 04/28/2006 57 315.7 (H) 10/27/2007 71 (H) 410.0 (H) 09/18/2011 52 472.9 (H) 04/30/2012 70 353.3 (H) 06/29/2012 495.2 (H) 08/27/2012 53 368.1 (H) Component Prolactin Latest Ref Rng & Units 2.0 - 17.4 ng/mL 07/05/2003 10:50 AM 15.9 07/05/2003 10:50 AM 196.9 (A) 07/05/2003 10:50 AM 52.0 (A) 07/05/2003 10:55 AM 17.1 07/05/2003 10:55 AM 318.7 (A) 07/05/2003 10:55 AM 43.1 (A) 07/05/2003 11:02 AM 16.8 07/05/2003 11:02 AM 262.0 (A) 07/05/2003 11:02 AM 25.8 (A) 07/05/2003 11:05 AM 16.5 07/05/2003 11:05 AM 385.2 (A) 07/05/2003 11:05 AM 38.7 (A) 07/05/2003 11:10 AM 17.4 07/05/2003 11:10 AM 564.3 (A) 07/05/2003 11:10 AM 116.2 (A) 07/05/2003 11:15 AM 17.7 (A) 07/05/2003 11:15 AM 481.3 (A) 07/05/2003 11:15 AM 88.3 (A) 08/31/2003 6.5 11/09/2003 4.9 11/08/2005 4.7 04/28/2006 6.9 09/18/2011 6.6 Component T4 T4 Uptake FTI TSH T3 Free T4 Free T3 Latest Ref Rng & Units 5.0 - 11.0 ug/dL 0.70 - 1.20 6.0 - 11.0 ug/dL 0.270 - 4.200 uU/mL 94 - 170 ng/dL 0.9 - 1.7 ng/dL 1.8 - 4.6 pg/mL 08/31/2003 10.3 1.17 8.8 2.580 201 (A) 11/09/2003 10.5 1.33 (A) 7.9 3.090 209 (A) 11/08/2005 3.540 1.0 3.6 04/28/2006 1.900 1.0 3.6 10/27/2007 9.0 1.36 (H) 6.6 3.380 171 (H) 09/18/2011 4.8 (L) 1.15 4.2 (L) 1.600 106 01/15/2012 7.4 1.08 6.9 113 04/30/2012 1.0 2.7 08/27/2012 0.819 0.8 2.6 05/30/2020 0.097 (L) 1.1 Component Latest Ref Rng & Units 04/06/2018 10/05/2018 05/30/2020 05/30/2020 Protein, Total 6.3 - 8.0 g/dL 7.5 7.6 8.3 (H) Albumin 3.9 - 4.9 g/dL 4.5 4.2 4.3 Calcium 8.5 - 10.2 mg/dL 9.0 9.4 9.7 Bilirubin, Total 0.2 - 1.3 mg/dL 0.4 0.3 0.3 Alkaline Phosphatase 34 - 123 U/L 94 91 90 AST 13 - 35 U/L 18 19 36 (H) Glucose 74 - 99 mg/dL 71 (L) 49 (L) 83 BUN 7 - 21 mg/dL 10 11 11 Creatinine 0.58 - 0.96 mg/dL 0.69 0.70 0.73 Sodium 136 - 144 mmol/L 140 138 138 Potassium 3.7 - 5.1 mmol/L 3.8 4.1 4.0 Chloride 97 - 105 mmol/L 98 98 101 CO2 22 - 30 mmol/L 23 26 25 Anion Gap 9 - 18 mmol/L 19 (H) 14 12 ALT 7 - 38 U/L 25 27 53 (H) eGFR- >60 >60 >60 eGFR-All Other Races . >60 >60 >60 Cholesterol, Total <200 mg/dL 151 185 201 (H) Triglyceride <150 mg/dL 246 (H) 168 (H) 404 (H) HDL Cholesterol >39 mg/dL 28 (L) 35 (L) 29 (L) LDL Cholesterol <100 mg/dL 74 116 (H) 111 (H) Non HDL Cholesterol <130 mg/dL 123 150 (H) 172 (H) Fasting Time hrs Unknown Unknown 12 Hemoglobin A1C 4.3 - 5.6 % 5.2 LDL Cholesterol, Direct <100 mg/dL 111 (H) Magnesium 1.7 - 2.3 mg/dL 2.0 2.3 2.2 Uric Acid 2.5 - 6.6 mg/dL 6.0 6.2 8.5 (H) GGT 6 - 46 U/L 39 Insulin-like Growth Factor I 83 - 280 ng/mL 47 (L) FSH mU/mL 0.4 LH mU/mL 0.4 Estradiol 17B pg/mL 45 Free T4 0.9 - 1.7 ng/dL 1.1 TSH 0.270 - 4.200 uU/mL 0.097 (L) hCG Quantitative, Blood <5.0 mU/mL <0.6 Component Latest Ref Rng & Units 05/30/2020 06/04/2021 11/05/2021 Protein, Total 6.3 - 8.0 g/dL 8.3 (H) 7.4 Albumin 3.9 - 4.9 g/dL 4.3 4.1 Calcium 8.5 - 10.2 mg/dL 9.7 9.7 Bilirubin, Total 0.2 - 1.3 mg/dL 0.3 0.2 Alkaline Phosphatase 34 - 123 U/L 90 60 AST 13 - 35 U/L 36 (H) 24 Glucose 74 - 99 mg/dL 83 77 BUN 7 - 21 mg/dL 11 9 Creatinine 0.58 - 0.96 mg/dL 0.73 0.75 Sodium 136 - 144 mmol/L 138 139 Potassium 3.7 - 5.1 mmol/L 4.0 3.6 (L) 4.2 Chloride 97 - 105 mmol/L 101 103 CO2 22 - 30 mmol/L 25 24 Anion Gap 9 - 18 mmol/L 12 12 ALT 7 - 38 U/L 53 (H) 17 eGFR- >60 >60 eGFR-All Other Races . >60 >60 Hemoglobin A1C 4.3 - 5.6 % 5.2 5.0 Estimated Average Glucose mg/dL 103 97 Insulin-like Growth Factor I 82 - 279 ng/mL 47 (L) 26 (L) 50 (L) FSH mU/mL 0.4 LH mU/mL 0.4 Estradiol 17B pg/mL 45 Free T4 0.9 - 1.7 ng/dL 1.1 1.1 TSH 0.270 - 4.200 uU/mL 0.097 (L) Pituitary MRI 02/2020: Postsurgical changes without evidence for recurrent tumor. 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 Adenohypophysis: Mostly empty sella is again noted with recurrent sellar or suprasellar mass. Minimal enhancement along the floor the sella is likely due to residual pituitary gland. Posterior Pituitary Gland: Ppsterior pituitary gland present and normal in size and location. Suprasellar Region: No evidence of a suprasellar mass. The infundibulum is intact. 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 Hancock and Robert over the past few years -- Was on ketoconazole in 2012 that was discontinued after elevated liver enzymes -- Treated with LCI 699 (osilodrostat) as part of a clinical trial since 2012 with good response -- Currently on 15 mg twice a day -- Last 24 hour urine cortisol in 08/2012 -- Drug now approved by the FDA -- No significant side effects, BP at goal, no edema, no evidence of AI, no N/V -- Magnesium and potassium levels at goal -- No palpitations -- Mild increase in hirsutism and hair loss -- Pituitary MRI in 02/2020 - stable -- Next MRI scheduled soon -- ACTH elevated - being worked up for recurrent Jensen -- Will transition care to Dr. Perez Secondary Hypothyroidism: -- Clinically euthyroid -- Continue with levothyroxine 150 mcg daily -- FT4 in 12/2021 at goal (1.0) -- Will repeat levels -- Yearly FT4 levels, earlier if symptomatic Secondary Amenorrhea: -- Was following with Dr. Patterson ([facility]) - last visit in 2017 -- Stopped OCP due to insurance issues - recently got her insurance back -- Tried depo-porvera - stopped due to side effects -- Menstrual cycles were irregular in the past -- Hx of elevated DHEAS with normal testosterone - ? due to [place] disease or underlying PCOS -- Re-established care with OBGYN -- D&C WNL -- On OCP -- BMD in 05/2020 WNL -- S/p ovarian mass excision in 07/2021 - benign -- Repeat DEXA scan in 05/2025 -- On OCP Secondary GH deficiency: -- Abnormal Argenine/GHRH stimulation test consistent with severe GH deficiency -- Was on Neutropin that she stopped prior to 2013 due to cost and insurance coverage -- Was genotropin 0.4 mg daily (did not get the approval for 0.6 mg) -- Will resume genotropin 0.6 mg daily (approved but has not received yet) -- Repeat IGF-1 in 6 weeks after starting 0.6 mg -- Will monitor for diabetes - last HbA1c was 5.2 % in 02/2023) DLP: -- Dietary changes reviewed Elevated transaminase: -- Referred to GI - has not seen them -- Will repeat levels Obesity BMI 42: -- Will avoid medical therapy given HTN and current medications -- Will avoid PSMF given elevated UA -- She has lost weight recently -- She will work on dietary changes and exercise -- Start Wegovy 0.25 mg weekly -- The side effects and benefits of Wegovy discussed in details including risk of pancreatis, medullary thyroid cancer and CI for Patient to continue to follow up with PCP and with other consultants regarding other medical problems. The patient will transition care to our pituitary expert - Dr. Farhan Pierre MD documented in this encounter [facility] 04-23-2023 Note HNO ID: [id number] Author: Padmini Perez MD Service: ? Author Type: Physician Type: Progress Notes Filed: 04/23/2023 2:14 PM Note Text: Endocrinology Follow Up . VIRTUAL VISIT Patient is being evaluated today via a Virtual Visit using a HIPPA compliant platform, zoom via [employer]. It required patient-provider interaction for the medical decision making as documented below. Patient consented to treatment I have communicated my name and active licensure. The patient's identity and physical location were verified at the time of this visit. Either the patient or their legal pest control service representative has been informed of the risks and benefits of -- and alternatives to -- treatment through a remote evaluation and consents to proceed with the evaluation remotely. 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 Summary of past history: History dates back to age [age] years old when she was diagnosed with Jensen's after experiencing abnormal weight gain and secondary amenorrhea. She had been followed by Drs. Hancock and Robert at the pituitary center for years. Treated with LCI 699 (osilodrostat) as part of a clinical trial since 2012 with good response.Currently on 15 mg twice a day Drug now approved by the FDA Also on LT4 150 mcg daily Could not tolerate ketoconazole (elevated liver enzymes) - stopped in 2012 Was on contraception initially for the [id number] study Had an abnormal Argenine/GHRH stimulation test consistent with severe GH deficiency Was on Neutropin that she stopped prior to 2013 due to cost and insurance coverage BMD WNL in 09/2005 and in 05/2020 Hx of elevated DHEAS with normal testosterone which may be secondary to [place] disease or underlying PCOS Tried depo-porvera - stopped due to side effects Menstrual cycles were irregular in the past Interval history: She was last seen by Dr. Dov Pierre on 02/10/2023. All documentation from previous visit of 02/10/2023 was copied and pasted, documentation has been reviewed and edited as necessary for today's visit. On Isturisa - on 15 mg BID LT4 150 mcg daily and OCP daily DEXA scan in 05/2020 WNL Norditropin not covered and she has not taken Norditropin over the last couple months. Previously she had been on Genotropin 0.4 mg daily and in the past 0.6 mg daily. She has not felt any better on the medication and still has low energy. She feels like stopping the Genotropin has caused more detrimental effect on her body composition and metabolic parameters. She has hair loss and hirsutism that is worse on osilodrostat. 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) History of ovarian cystectomy 07/25/2021 bilateral History of right salpingectomy 07/25/2021 Irregular menstrual cycle Irregular periods Low grade squamous intraepithelial lesion (LGSIL) on cervical Pap smear Obesity, unspecified Polycystic ovaries PAST SURGICAL HISTORY Procedure Laterality Date ENDOCERVICAL CURETTAGE 03/16/2021 HYPOPHYSEC/EXC PITUITARY MIGUELINA TRANSNASAL/SEPTAL 07/2003 Transphenoidal hypophys HYPOPHYSEC/EXC PITUITARY MIGUELINA TRANSNASAL/SEPTAL 12/2003 Transphenoidal hypophys LEEP PROCEDURE ([facility] DEPT)_*FL 06/07/2010 MRI GAMMA KNIFE LOCAL WWO CONT 2005 pituitary for cushings OVARIAN CYSTECTOMY Bilateral 07/25/2021 serous cystoadenoma SALPINGECTOMY Right 07/25/2021 laparoscopic with excision of bilateral cysts VAGINOSCOPY 03/26/2021 Current Outpatient Medications Medication Sig Dispense Refill lamoTRIgine (LAMICTAL) 25 mg tablet Take 4 tablets by mouth daily at bedtime. busPIRone (BUSPAR) 7.5 mg tablet Take 2 tablets by mouth twice daily. somatropin (GENOTROPIN) 0.6 mg/0.25 mL injection Inject 0.6 mg subcutaneously once daily. 90 Each 3 levothyroxine (SYNTHROID) 150 mcg tablet TAKE ONE TABLET BY MOUTH ONCE DAILY ON EMPTY STOMACH 90 tablet 3 Insulin [place], Disposable, (BD ULTRAFINE III MINI PEN) 31 gauge x 3/16 Use with genotropin Pen daily 500 Each 3 osilodrostat (ISTURISA) 5 mg tablet 15 mg twice a day 540 tablet 3 Desogestrel-Ethinyl Estradiol (APRI) 0.15-0.03 mg per tablet Take 1 tablet by mouth once daily. 84 tablet 4 acetaminophen (TYLENOL) 325 mg tablet Take 2 tablets by mouth every 6 hours as needed for pain. 45 tablet 0 ibuprofen (MOTRIN) 600 mg tablet Take 1 tablet by mouth every 6 hours as needed for pain. Take with food. 30 tablet 0 ketoconazole (NIZORAL) 2 % shampoo PARoxetine (PAXIL) 20 mg tablet Take 20 mg by mouth once daily. iv contrast (will be provided with radiolog (more content not included)... [facility] 04-23-2023 Miscellaneous Notes 3 salivary cortisol kits in mail for patient with return back kit. Thanks, HARRIET Hopkins RN [facility] Please mail the patient 3 salivates with instructions for midnight saliva cortisol collection. Thank you very much! Padmini Perez MD documented in this encounter [facility] 04-23-2023 History of Present illness Narrative Endocrinology Follow Up . VIRTUAL VISIT Patient is being evaluated today via a Virtual Visit using a HIPPA compliant platform, zoom via Canva. It required patient-provider interaction for the medical decision making as documented below. Patient consented to treatment I have communicated my name and active licensure. The patient's identity and physical location were verified at the time of this visit. Either the patient or their legal pest control service representative has been informed of the risks and benefits of -- and alternatives to -- treatment through a remote evaluation and consents to proceed with the evaluation remotely. History of Present Illness Angela Nguyen is a 38 year old female with PMH of Cyclic [place]'s disease (dx at age 17 years) s/p surgical resection x2 (2002, 2003) and gamma knife radiation (2004) with persistent Jensen now controlled on osilodrostat, secondary hypothyroidism, secondary amenorrhea and Obesity, here for follow up . Summary of past history: History dates back to age [age] years old when she was diagnosed with [place]'s after experiencing abnormal weight gain and secondary amenorrhea. She had been followed by Drs. Hancock and Robert at the pituitary center for years. Treated with LCI 699 (osilodrostat) as part of a clinical trial since 2012 with good response.Currently on 15 mg twice a day Drug now approved by the FDA Also on LT4 150 mcg daily Could not tolerate ketoconazole (elevated liver enzymes) - stopped in 2012 Was on contraception initially for the [id number] study Had an abnormal Argenine/GHRH stimulation test consistent with severe GH deficiency Was on Neutropin that she stopped prior to 2013 due to cost and insurance coverage BMD WNL in 09/2005 and in 05/2020 Hx of elevated DHEAS with normal testosterone which may be secondary to Jensen disease or underlying PCOS Tried depo-porvera - stopped due to side effects Menstrual cycles were irregular in the past Interval history: She was last seen by Dr. Dov Pierre on 02/10/2023. All documentation from previous visit of 02/10/2023 was copied and pasted, documentation has been reviewed and edited as necessary for today's visit. On Isturisa - on 15 mg BID LT4 150 mcg daily and OCP daily DEXA scan in 05/2020 WNL Norditropin not covered and she has not taken Norditropin over the last couple months. Previously she had been on Genotropin 0.4 mg daily and in the past 0.6 mg daily. She has not felt any better on the medication and still has low energy. She feels like stopping the Genotropin has caused more detrimental effect on her body composition and metabolic parameters. She has hair loss and hirsutism that is worse on osilodrostat. 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) History of ovarian cystectomy 07/25/2021 bilateral History of right salpingectomy 07/25/2021 Irregular menstrual cycle Irregular periods Low grade squamous intraepithelial lesion (LGSIL) on cervical Pap smear Obesity, unspecified Polycystic ovaries PAST SURGICAL HISTORY Procedure Laterality Date ENDOCERVICAL CURETTAGE 03/16/2021 HYPOPHYSEC/EXC PITUITARY MIGUELINA TRANSNASAL/SEPTAL 07/2003 Transphenoidal hypophys HYPOPHYSEC/EXC PITUITARY MIGUELINA TRANSNASAL/SEPTAL 12/2003 Transphenoidal hypophys LEEP PROCEDURE ([facility] PRESIDENT DEPT)_*FL 06/07/2010 MRI GAMMA KNIFE LOCAL WWO CONT 2005 pituitary for cushings OVARIAN CYSTECTOMY Bilateral 07/25/2021 serous cystoadenoma SALPINGECTOMY Right 07/25/2021 laparoscopic with excision of bilateral cysts VAGINOSCOPY 03/26/2021 Current Outpatient Medications Medication Sig Dispense Refill lamoTRIgine (LAMICTAL) 25 mg tablet Take 4 tablets by mouth daily at bedtime. busPIRone (BUSPAR) 7.5 mg tablet Take 2 tablets by mouth twice daily. somatropin (GENOTROPIN) 0.6 mg/0.25 mL injection Inject 0.6 mg subcutaneously once daily. 90 Each 3 levothyroxine (SYNTHROID) 150 mcg tablet TAKE ONE TABLET BY MOUTH ONCE DAILY ON EMPTY STOMACH 90 tablet 3 Insulin [place], Disposable, (BD ULTRAFINE III MINI PEN) 31 gauge x 3/16 Use with genotropin Pen daily 500 Each 3 osilodrostat (ISTURISA) 5 mg tablet 15 mg twice a day 540 tablet 3 Desogestrel-Ethinyl Estradiol (APRI) 0.15-0.03 mg per tablet Take 1 tablet by mouth once daily. 84 tablet 4 acetaminophen (TYLENOL) 325 mg tablet Take 2 tablets by mouth every 6 hours as needed for pain. 45 tablet 0 ibuprofen (MOTRIN) 600 mg tablet Take 1 tablet by mouth every 6 hours as needed for pain. Take with food. 30 tablet 0 ketoconazole (NIZORAL) 2 % shampoo PARoxetine (PAXIL) 20 mg tablet Take 20 mg by mouth once daily. iv contrast (will be provided with radiology test) MRI Pituitary Inject, intravenously, once for 1 dose. No IV access, insert saline lock prior to the beginning of sedation, infusion, injection of imaging exam. Discontinue saline lock post exam. If Pt. has a central line or IVAD, may access for administration according to line specific nursing protocol. Once exam is complete flush line and de-access according to line specific nursing protocol in the MR contrast administration guidelines link. 1 Each 0 MULTIVITAMIN ORAL Take 1 tablet by mouth once daily. No current facility-administered medications for this visit. ALLERGIES No Known Allergies FAMILY HISTORY Problem Relation Age of Onset Thyroid Paternal Grandmother Heart Other maternal great grandmother Social History Tobacco Use Smoking status: Never Smokeless tobacco: Never Vaping Use Vaping Use: Never used Substance Use Topics Alcohol use: Yes Alcohol/week: 2.6 standard drinks of alcohol Types: 2 Mixed Drinks per week Comment: social Drug use: Yes Comment: marijuana daily Review of Systems Answers submitted by the patient for this visit: Endocrine Review of Systems (Submitted on 04/22/2023) Fatigue: Yes Night sweats: No Recent unintentional weight change: Yes Skin Color Changes: No Post-Nasal Drip: No Thyroid Pain (lower neck): No Trouble Swallowing: No Vision Disturbance: No Chest pain: No Leg Swelling: No Blood Clots?: No Leg Pain while walking?: No Difficulty Breathing?: No Heartburn: Yes Nausea: Yes Vomiting: Yes Diarrhea: No Constipation: No Abdominal pain: No Bone Pain?: Yes Muscle aches: Yes Muscle weakness: Yes Joint pain or stiffness: Yes Headaches: Yes Dizziness: Yes Numbness?: No Urgency to Urinate?: Yes Increased Urination?: No Slow or Small Urine Stream?: Yes Are your menstrual cycles regular?: No Are your menstrual cycles irregular?: Yes Have your menstrual cycles stopped?: Yes Flushing?: Yes Hot Flashes?: No Increased Thirst: Yes Change in Body Hair?: Yes Cold Intolerance: No Heat Intolerance?: Yes Previous Laboratory Results Component Latest Ref Rng & Units 02/24/2023 03/20/2023 Protein, Total 6.3 - 8.0 g/dL 7.2 Albumin 3.9 - 4.9 g/dL 4.2 Calcium 8.5 - 10.2 mg/dL 9.2 Bilirubin, Total 0.2 - 1.3 mg/dL 0.4 Alkaline Phosphatase 34 - 123 U/L 104 AST 13 - 35 U/L 87 (H) ALT 7 - 38 U/L 44 (H) Glucose 74 - 99 mg/dL 103 (H) BUN 7 - 21 mg/dL 10 Creatinine 0.58 - 0.96 mg/dL 0.87 Sodium 136 - 144 mmol/L 139 Potassium 3.7 - 5.1 mmol/L 4.0 Chloride 97 - 105 mmol/L 103 CO2 22 - 30 mmol/L 23 Anion Gap 9 - 18 mmol/L 13 eGFR >=60 mL/min/1.73m 89 Hemoglobin A1C 4.3 - 5.6 % 5.2 Estimated Average Glucose mg/dL 103 Insulin-like Growth Factor I 80 - 277 ng/mL 26 (L) ACTH 7.2 - 63.3 pg/mL 309.3 (H) 205.4 (H) Prolactin 4.5 - 26.8 ng/mL 7.7 Component ACTH DHEA-S Cortisol Latest Ref Rng & Units 8 - 42 pg/mL 41.0 - 247.0 ug/dL ug/dL 01/18/2003 06/22/2003 50 621.1 (A) 38.6 06/27/2003 07/05/2003 67 (A) 29.4 07/05/2003 2805 (A) 07/05/2003 850 (A) 07/05/2003 60 (A) 28.1 07/05/2003 3033 (A) 07/05/2003 661 (A) 07/05/2003 70 (A) 28.9 07/05/2003 7175 (A) 07/05/2003 1424 (A) 07/05/2003 82 (A) 27.9 07/05/2003 5175 (A) 07/05/2003 1917 (A) 07/05/2003 98 (A) 33.7 07/05/2003 3102 (A) 07/05/2003 1806 (A) 07/05/2003 104 (A) 33.8 07/05/2003 4900 (A) 07/05/2003 2355 (A) 08/02/2003 37 29.3 08/31/2003 35 11/09/2003 33 12/07/2003 37 12/30/2003 45 34.6 04/28/2006 37 315.7 (H) 10/27/2007 55 (H) 410.0 (H) 39.1 09/18/2011 70 (H) 472.9 (H) 01/15/2012 86 (H) 22.2 04/30/2012 83 (H) 353.3 (H) 26.9 06/29/2012 91 (H) 495.2 (H) 24.0 08/27/2012 67 (H) 368.1 (H) 16.4 09/07/2012 62 (H) 24.8 09/29/2012 73 (H) 23.4 Component Creatinine mg/day, Ur (UFRCRT) Free Cortisol ug/L, Urine Volume, Ur (UFRCRT) Free Cortisol ug/day, Urine Cortisol ug/g Bed Spring Maker, Ur (UFRCRT) Free Cortisol, Urine Free Cortisol, Serum Latest Ref Rng & Units 09/16/2005 1281 1281 35.2 04/11/2006 1298 1273 28.9 10/29/2007 1168 23.60 1229 29.0 11/10/2007 0.46 11/10/2007 1.98 11/10/2007 3.42 09/25/2011 1486 . . . 28.40 . . . 2123 . . . 60.3 (H) . . . 40.57 . . . 04/30/2012 1269 . . . 98.70 . . . 1547 . . . 152.7 (H) . . . 120.37 . . . 06/22/2012 939 . . . 23.30 . . . 1444 . . . 33.6 . . . 35.85 . . . 06/29/2012 1.86 . . . 08/27/2012 0.81 . . . 09/07/2012 937 . . . 55.30 . . . 1442 . . . 79.7 (H) . . . 85.08 . . . Component Cortisol Basal Cortisol 30 min Cortisol 60 min Latest Ref Rng & Units ug/dL ug/dL ug/dL 08/31/2003 23.4 64.8 54.7 11/09/2003 41.5 53.4 53.9 01/18/2004 25.7 45.9 50.9 04/24/2005 21.0 51.8 43.0 Component Cortisol, Saliva AM Cortisol Saliva Midnight Cortisol Saliva Cortisol, 24 Hr Urine Latest Ref Rng & Units 20 - 100 ug/24hr 01/18/2003 258.0 (A) 06/27/2003 2136 723.7 (A) 09/21/2003 56.5 11/14/2003 708 12/12/2003 448.9 (A) 01/18/2004 428 01/20/2004 108.2 (A) 03/12/2004 206.1 (A) 03/14/2004 163 05/22/2004 774 05/23/2004 59.2 08/06/2004 462.9 (A) 08/09/2004 117 10/07/2004 541.6 (A) 04/09/2005 39.0 04/16/2005 132 06/12/2005 33.9 06/13/2005 191 09/24/2005 127 04/11/2006 42 11/19/2007 222 11/24/2007 128 09/18/2011 09/24/2011 67 . . . Component Latest Ref Rng & Units 10/07/2016 LH mU/mL 0.3 Estradiol 17B pg/mL 47 FSH mU/mL 0.4 Component Latest Ref Rng & Units 06/02/2006 Growth Hormone, Basal 0.0 - 3.0 ng/mL 0.2 Growth Hormone, 30 min ng/mL 1.9 Growth Hormone, 60 min ng/mL 1.8 Growth Hormone, 120 min ng/mL 0.4 Growth Hormone 0.0 - 3.0 ng/mL 0.7 Component IGF- I GH Latest Ref Rng & Units 83 - 280 ng/mL 0.0 - 3.0 ng/mL 08/31/2003 165 (A) 11/09/2003 100 (A) 11/08/2005 59 (L) 04/28/2006 40 (L) 06/02/2006 0.7 10/27/2007 57 (L) 09/18/2011 74 (L) 05/30/2020 47 (L) Component Latest Ref Rng & Units 09/18/2011 10/07/2016 05/30/2020 Estradiol 17B pg/mL 46 47 45 FSH mU/mL 1.6 0.4 0.4 LH mU/mL 0.3 0.4 Component Testosterone Testosterone Free % Testosterone Free DHEA-S Latest Ref Rng & Units 20 - 70 ng/dL 0.3 - 1.9 % 1.0 - 9.0 pg/mL 41.0 - 247.0 ug/dL 06/22/2003 61 (A) 1.7 10.4 (A) 621.1 (A) 04/28/2006 57 315.7 (H) 10/27/2007 71 (H) 410.0 (H) 09/18/2011 52 472.9 (H) 04/30/2012 70 353.3 (H) 06/29/2012 495.2 (H) 08/27/2012 53 368.1 (H) Component Prolactin Latest Ref Rng & Units 2.0 - 17.4 ng/mL 07/05/2003 10:50 AM 15.9 07/05/2003 10:50 AM 196.9 (A) 07/05/2003 10:50 AM 52.0 (A) 07/05/2003 10:55 AM 17.1 07/05/2003 10:55 AM 318.7 (A) 07/05/2003 10:55 AM 43.1 (A) 07/05/2003 11:02 AM 16.8 07/05/2003 11:02 AM 262.0 (A) 07/05/2003 11:02 AM 25.8 (A) 07/05/2003 11:05 AM 16.5 07/05/2003 11:05 AM 385.2 (A) 07/05/2003 11:05 AM 38.7 (A) 07/05/2003 11:10 AM 17.4 07/05/2003 11:10 AM 564.3 (A) 07/05/2003 11:10 AM 116.2 (A) 07/05/2003 11:15 AM 17.7 (A) 07/05/2003 11:15 AM 481.3 (A) 07/05/2003 11:15 AM 88.3 (A) 08/31/2003 6.5 11/09/2003 4.9 11/08/2005 4.7 04/28/2006 6.9 09/18/2011 6.6 Component T4 T4 Uptake FTI TSH T3 Free T4 Free T3 Latest Ref Rng & Units 5.0 - 11.0 ug/dL 0.70 - 1.20 6.0 - 11.0 ug/dL 0.270 - 4.200 uU/mL 94 - 170 ng/dL 0.9 - 1.7 ng/dL 1.8 - 4.6 pg/mL 08/31/2003 10.3 1.17 8.8 2.580 201 (A) 11/09/2003 10.5 1.33 (A) 7.9 3.090 209 (A) 11/08/2005 3.540 1.0 3.6 04/28/2006 1.900 1.0 3.6 10/27/2007 9.0 1.36 (H) 6.6 3.380 171 (H) 09/18/2011 4.8 (L) 1.15 4.2 (L) 1.600 106 01/15/2012 7.4 1.08 6.9 113 04/30/2012 1.0 2.7 08/27/2012 0.819 0.8 2.6 05/30/2020 0.097 (L) 1.1 Component Latest Ref Rng & Units 04/06/2018 10/05/2018 05/30/2020 05/30/2020 Protein, Total 6.3 - 8.0 g/dL 7.5 7.6 8.3 (H) Albumin 3.9 - 4.9 g/dL 4.5 4.2 4.3 Calcium 8.5 - 10.2 mg/dL 9.0 9.4 9.7 Bilirubin, Total 0.2 - 1.3 mg/dL 0.4 0.3 0.3 Alkaline Phosphatase 34 - 123 U/L 94 91 90 AST 13 - 35 U/L 18 19 36 (H) Glucose 74 - 99 mg/dL 71 (L) 49 (L) 83 BUN 7 - 21 mg/dL 10 11 11 Creatinine 0.58 - 0.96 mg/dL 0.69 0.70 0.73 Sodium 136 - 144 mmol/L 140 138 138 Potassium 3.7 - 5.1 mmol/L 3.8 4.1 4.0 Chloride 97 - 105 mmol/L 98 98 101 CO2 22 - 30 mmol/L 23 26 25 Anion Gap 9 - 18 mmol/L 19 (H) 14 12 ALT 7 - 38 U/L 25 27 53 (H) eGFR- >60 >60 >60 eGFR-All Other Races . >60 >60 >60 Cholesterol, Total <200 mg/dL 151 185 201 (H) Triglyceride <150 mg/dL 246 (H) 168 (H) 404 (H) HDL Cholesterol >39 mg/dL 28 (L) 35 (L) 29 (L) LDL Cholesterol <100 mg/dL 74 116 (H) 111 (H) Non HDL Cholesterol <130 mg/dL 123 150 (H) 172 (H) Fasting Time hrs Unknown Unknown 12 Hemoglobin A1C 4.3 - 5.6 % 5.2 LDL Cholesterol, Direct <100 mg/dL 111 (H) Magnesium 1.7 - 2.3 mg/dL 2.0 2.3 2.2 Uric Acid 2.5 - 6.6 mg/dL 6.0 6.2 8.5 (H) GGT 6 - 46 U/L 39 Insulin-like Growth Factor I 83 - 280 ng/mL 47 (L) FSH mU/mL 0.4 LH mU/mL 0.4 Estradiol 17B pg/mL 45 Free T4 0.9 - 1.7 ng/dL 1.1 TSH 0.270 - 4.200 uU/mL 0.097 (L) hCG Quantitative, Blood <5.0 mU/mL <0.6 Component Latest Ref Rng & Units 05/30/2020 06/04/2021 11/05/2021 Protein, Total 6.3 - 8.0 g/dL 8.3 (H) 7.4 Albumin 3.9 - 4.9 g/dL 4.3 4.1 Calcium 8.5 - 10.2 mg/dL 9.7 9.7 Bilirubin, Total 0.2 - 1.3 mg/dL 0.3 0.2 Alkaline Phosphatase 34 - 123 U/L 90 60 AST 13 - 35 U/L 36 (H) 24 Glucose 74 - 99 mg/dL 83 77 BUN 7 - 21 mg/dL 11 9 Creatinine 0.58 - 0.96 mg/dL 0.73 0.75 Sodium 136 - 144 mmol/L 138 139 Potassium 3.7 - 5.1 mmol/L 4.0 3.6 (L) 4.2 Chloride 97 - 105 mmol/L 101 103 CO2 22 - 30 mmol/L 25 24 Anion Gap 9 - 18 mmol/L 12 12 ALT 7 - 38 U/L 53 (H) 17 eGFR- >60 >60 eGFR-All Other Races . >60 >60 Hemoglobin A1C 4.3 - 5.6 % 5.2 5.0 Estimated Average Glucose mg/dL 103 97 Insulin-like Growth Factor I 82 - 279 ng/mL 47 (L) 26 (L) 50 (L) FSH mU/mL 0.4 LH mU/mL 0.4 Estradiol 17B pg/mL 45 Free T4 0.9 - 1.7 ng/dL 1.1 1.1 TSH 0.270 - 4.200 uU/mL 0.097 (L) Pituitary MRI 02/2020: Postsurgical changes without evidence for recurrent tumor. 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 Adenohypophysis: Mostly empty sella is again noted with recurrent sellar or suprasellar mass. Minimal enhancement along the floor the sella is likely due to residual pituitary gland. Posterior Pituitary Gland: Ppsterior pituitary gland present and normal in size and location. Suprasellar Region: No evidence of a suprasellar mass. The infundibulum is intact. The optic apparatus is normal in appearance DEXA scan 05/2020: Lumbar spine (L1-L2):0.921 g/cm2, Z-score -0.5 Left Femoral Neck: 0.969 g/cm2, Z-score 1.2 Left Total Hip: 1.241 g/cm2, Z-score 2.5 Impression/Recommendations 38-year-old female here for follow-up. 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 She also has secondary hypothyroidism, secondary amenorrhea and Obesity. -Her ACTH has trended up this year. We need to do a full evaluation for hypercortisolism. PLAN: We will check late-night salivary cortisol x3 We will check 24-hour urine for cortisol We will perform a dexamethasone suppression test. Discussed with her that if ACTH elevation suppresses then more than likely this is not an tumorous or autonomous secretion of ACTH. Last MRI was in 2019 so we will get a pituitary MRI now to see if there is any residual pituitary tumor that is contributing to the elevated ACTH Continue osilodrostat 15 mg twice a day 2. (E03.9) Acquired hypothyroidism -- Clinically euthyroid -- Continue with levothyroxine 150 mcg daily PLAN: Check a free T4 Continue levothyroxine 150 mcg daily 3.(E23.0) Growth hormone deficiency (HCC) -- Was following with Dr. Patterson ([facility]) - last visit in 2017 -- Stopped OCP due to insurance issues - recently got her insurance back -- Tried depo-porvera - stopped due to side effects -- Menstrual cycles were irregular in the past -- Hx of elevated DHEAS with normal testosterone - ? due to Jensen disease or underlying PCOS -- Re-established care with OBGYN --I recommended that she follow-up with PATENT SEARCHER for this. 4. 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 All the patient`s questions were answered. The patient expressed understanding of all the information relayed and has agreed to this plan. Padmini Perez MD documented in this encounter [facility] 04-18-2023 Miscellaneous Notes Please schedule at Pituitary clinic Thank you Micaela Pierre MD documented in this encounter [facility] 03-21-2023 Miscellaneous Notes Please help schedule at the pituitary clinic for jensen disease Thank you! LE documented in this encounter [facility] 03-11-2023 Miscellaneous Notes Images from the original note were not included. somatropin (GENOTROPIN) 0.6 mg/0.25 mL injection has been approved Notified patient through [facility] [employer] Prior Communications Engineer Endocrinology and Metabolism [place] documented in this encounter [facility] 03-10-2023 Miscellaneous Notes Images from the original note were not included. Initiated PA for through somatropin (GENOTROPIN) 0.6 mg/0.25 mL injection through [facility] via Covermymed Chart notes attached Questions completed Waiting for determination Elliott Prior Communications Engineer Endocrinology and Metabolism [place] documented in this encounter [facility] 02-10-2023 Note HNO ID: [id number] Author: Micaela Laura MD Service: ? Author Type: Physician Type: Progress Notes Filed: 02/10/2023 7:18 AM Note Text: Endocrinology Diabetes Follow Up Angela Nguyen, virtual visit for follow up of: [place]'s disease I have communicated my name and active licensure. The patient's identity and physical location were verified at the time of this visit. Either the patient or their legal pest control service representative has been informed of the risks and benefits of -- and alternatives to -- treatment through a remote evaluation and consents to proceed with the evaluation remotely. 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, 2003) and gamma knife radiation (2004) with persistent [place] now controlled on osilodrostat, secondary hypothyroidism, secondary amenorrhea and Obesity, here for follow up On Isturisa - on 15 mg BID LT4 150 mcg daily and OCP daily DEXA scan in 05/2020 WNL Norditropin not covered Started on Genotropin 0.4 mg daily - insurance did not cover the 0.6 Had COVID-19 in 06/2020 - had poor appettie Has lost 24 pounds since Grandfather from COVID-19 (vaccinated) Cousin from a heat stroke Dx with ovarian cyst removed in 07/2021 - benign She has noticed significant improvement in energy, weight, muscle mass, and mood Stopping the genotropin has caused detrimental effect on her body composition and metabolic parameters Bone density in 05/2020 was WNL Acne not as bad Hair loss and hirsutism slightly worse on osilodrostat Dx after abnormal weight gain and secondary amenorrhea around age 17 years (2002) Saw Endocrinology at [place] who referred her to Pediatric Endo at [facility] She has been followed by Drs. Hancock and Robert over the past few years Treated with LCI 699 (osilodrostat) as part of a clinical trial since 2012 with good response Currently on 15 mg twice a day Drug now approved by the FDA Also on LT4 150 mcg daily Could not tolerate ketoconazole (elevated liver enzymes) - stopped in 2012 Was on contraception initially for the [id number] study Had an abnormal Argenine/GHRH stimulation test consistent with severe GH deficiency Was on Neutropin that she stopped prior to 2013 due to cost and insurance coverage BMD WNL in 09/2005 and in 05/2020 Hx of elevated DHEAS with normal testosterone which may be secondary to Jensen disease or underlying PCOS Tried depo-porvera - stopped due to side effects Menstrual cycles were irregular in the past Current medications: Levothyroxine 150 mcg daily Osilodrostat: 15 mg BID Paxil 20 mg OD Multivitamin FHx: DM2: Paternal GM Past History, Medications, Allergies 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) History of ovarian cystectomy 07/25/2021 bilateral History of right salpingectomy 07/25/2021 Irregular menstrual cycle Irregular periods Low grade squamous intraepithelial lesion (LGSIL) on cervical Pap smear Obesity, unspecified Polycystic ovaries PAST SURGICAL HISTORY Procedure Laterality Date ENDOCERVICAL CURETTAGE 03/16/2021 HYPOPHYSEC/EXC PITUITARY MIGUELINA TRANSNASAL/SEPTAL 07/2003 Transphenoidal hypophys HYPOPHYSEC/EXC PITUITARY MIGUELINA TRANSNASAL/SEPTAL 12/2003 Transphenoidal hypophys LEEP PROCEDURE ([facility] DEPT)_*FL 06/07/2010 MRI GAMMA KNIFE LOCAL WWO CONT 2005 pituitary for cushings OVARIAN CYSTECTOMY Bilateral 07/25/2021 serous cystoadenoma SALPINGECTOMY Right 07/25/2021 laparoscopic with excision of bilateral cysts VAGINOSCOPY 03/26/2021 Current Outpatient Medications Medication Sig Dispense Refill levothyroxine (SYNTHROID) 150 mcg tablet TAKE ONE TABLET BY MOUTH ONCE DAILY ON EMPTY STOMACH 90 tablet 0 osilodrostat (ISTURISA) 5 mg tablet 15 mg twice a day 540 tablet 3 Desogestrel-Ethinyl Estradiol (APRI) 0.15-0.03 mg per tablet Take 1 tablet by mouth once daily. 84 tablet 4 busPIRone (BUSPAR) 7.5 mg tablet Take 7.5 mg by mouth twice daily. lamoTRIgine (LAMICTAL) 25 mg tablet Take 2 tablets by mouth daily at bedtime. somatropin (GENOTROPIN) 0.6 mg/0.25 mL injection Inject 0.6 mg subcutaneously once daily. 90 Each 3 acetaminophen (TYLENOL) 325 mg tablet Take 2 tablets by mouth every 6 hours as needed for pain. 45 tablet 0 ibuprofen (MOTRIN) 600 mg tablet Take 1 tablet by mouth every 6 hours as needed for pain. Take with food. 30 tablet 0 ketoconazole (NIZORAL) 2 % shampoo PARoxetine (PAXIL) 20 mg tablet Take 20 mg by mouth once daily. iv contrast (will be provided with radiology test) MRI Pituitary Inject, intravenously, once for 1 dose. No IV access, insert saline lock prior to the beginning of sedation, infusion, injection of imaging ex (more content not included)... [facility] 01-13-2023 Miscellaneous Notes January 13, 2023 PID: [id number] [address] [place] [address] Dear Jessica Patrick, We are pleased to inform you that the results of your recent breast imaging exam on 01/10/2023 are normal. Early detection of cancer is very important. We also understand recommendations regarding breast cancer screening are controversial. Please discuss with your primary care provider which strategy is best for you and whether a mammogram is right for you. Your imaging studies and report will be kept on file at [facility] as part of your permanent medical record and are available for your continuing care. Thank you for allowing us to help in meeting your health care needs. Sincerely, Dr. Zuniga Interpreting Radiologist [facility] (Normal over 40) documented in this encounter [facility] 01-10-2023 Note HNO ID: [id number] Author: Vibha Hernandez (Tech)(His Service: ? Author Type: Sheet Metal Apprentice Type: Progress Notes Filed: 01/10/2023 1:56 PM Note Text: Radiology Service Progress Note PATIENT NAME: Angela Nguyen DATE OF SERVICE: January 10, 2023 TIME: 1:56 PM PATIENT IDENTITY VERIFICATION COMPLETED USING TWO (2) IDENTIFIERS: Name and Date of confirmed by patient verbally. FALL SCREENING: Has the patient had 2 falls in the last year or 1 fall with injury or currently using an Ambulatory Assistive Device (Walker, Cane, Wheelchair, Crutches, etc.)? No PATIENT GENDER DATA: Female. status: : No status: NO. PATIENT RELEVANT IMPLANT DATA REVIEWED: Not Applicable RADIOLOGY DEPARTMENT: Mammography PERIPHERAL IV DATA: Not applicable SIGNED BY: Vibha Hernandez RRT January 10, 2023 1:56 PM [facility] 10-25-2022 Miscellaneous Notes Prescription sent LE [facility] rep call stating Isturisa is no longer available in the 10 mg tablet. [facility] rep sts a RX for 3 5 mg tablets twice daily is needed. [facility] Ph. [phone] Bright Wright Recycling Crew Supervisor II [facility] F-20 documented in this encounter [facility] 10-07-2022 Miscellaneous Notes PA request resent with printed name/signature for Inturista 5 mg and 10 mg via Covermymeds 5 mg: [place]: [id number] 10 mg: Mills: [id number] Brunilda COKER Coordinator Endocrinology and Metabolism [place] [facility] called in to let the office know Inturista 5 mg and 10 mg was denied because the doctors signature was not legible. [facility] is asking for the office to resend the prior auth with a legible signature. Sophia Bentley Recycling Crew Supervisor II [facility]-F20 documented in this encounter [facility] 09-30-2022 Miscellaneous Notes [facility] rep called requesting a renewal PA for Isturista 5 and 19 mg pt's ins [facility] Ph. [phone] [facility] Ph. [phone] Bright Wright Recycling Crew Supervisor II [facility] F-20 documented in this encounter [facility] 09-03-2022 Miscellaneous Notes Orders placed Micaela Pierre MD Called lab for results of the Urine Free Cortisol by LC-MS/MS Was informed that the test was never run. This needs to be reordered. Can new orders be placed for this test? Results are needed for the prior authorization for the Isturisa. documented in this encounter [facility] 09-03-2022 Miscellaneous Notes Initiated PA for Isturisa 5mg and 10 mg through [facility] via Covermymeds [place] provided are invalid: Isturisa 10 mg: MILLS [id number] Isturisa 5 mg: MILLS [id number] [place]: 5 mg: Mills: [id number] 10 mg: Mills: [id number] Need results of urine cortisol before submitting PA's. Waiting for response from Dr. Dov Pierre since lab never ran the test. Called [facility] and informed them of the status [facility] calling. States patients: Osilodrostat 10 mg and Osilodrostat 5 mg are set to in August. [facility] started PA process with cover my meds and wanted to let office know the KEYs, so this can be authorized. MILLS for 10 mg is [id number] MILLS for 5 mg is [id number] documented in this encounter [facility] 08-28-2022 Miscellaneous Notes I called the patient. Reviewed Pap results- ASCUS, neg HPV. She verbalizes understanding and questions answered. She is aware she needs a repeat Pap in 1 year. She will call with any further questions or concerns. Lia Wayne RN RN called patient and no answer. Left message to call office back. Lia Wayne RN Repeat pap in 12 months. documented in this encounter [facility] 08-16-2022 Miscellaneous Notes Initiated PA for Isturisa 5 mg and 10 mg through [facility] via Covermymeds 5mg = [place]: [id number] 10 mg = Waiting for urine free cortisol results to come back before submitting Questions completed Attached chart notes, IGF-1 and urine cortisol Waiting for determination documented in this encounter [facility] 08-12-2022 Note HNO ID: [id number] Author: Maxim Henry MD Service: ? Author Type: Physician Type: Progress Notes Filed: 08/12/2022 11:18 AM Note Text: Angela Nguyen is a 37 year old who presents for her annual gynecologic exam. Patient's last menstrual period was 07/29/2022. 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 Wants abdirizak stay on [facility]. PAST MEDICAL HISTORY Diagnosis Date Abnormal Pap smear and cervical HPV (human papillomavirus) 04/16/2010 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) History of ovarian cystectomy 07/25/2021 bilateral History of right salpingectomy 07/25/2021 Irregular menstrual cycle Irregular periods Low grade squamous intraepithelial lesion (LGSIL) on cervical Pap smear Obesity, unspecified Polycystic ovaries PAST SURGICAL HISTORY Procedure Laterality Date ENDOCERVICAL CURETTAGE 03/16/2021 HYPOPHYSEC/EXC PITUITARY MIGUELINA TRANSNASAL/SEPTAL 07/2003 Transphenoidal hypophys HYPOPHYSEC/EXC PITUITARY MIGUELINA TRANSNASAL/SEPTAL 12/2003 Transphenoidal hypophys LEEP PROCEDURE ([facility] DEPT)_*FL 06/07/2010 MRI GAMMA KNIFE LOCAL WWO CONT 2005 pituitary for cushings OVARIAN CYSTECTOMY Bilateral 07/25/2021 serous cystoadenoma SALPINGECTOMY Right 07/25/2021 laparoscopic with excision of bilateral cysts VAGINOSCOPY 03/26/2021 FAMILY HISTORY Problem Relation Age of Onset Thyroid Paternal Grandmother Heart Other maternal great grandmother Social History Tobacco Use Smoking status: Never Smokeless tobacco: Never Vaping Use Vaping Use: Never used Substance Use Topics Alcohol use: Yes Alcohol/week: 2.6 standard drinks Types: 2 Mixed Drinks per week Comment: social Drug use: Yes Comment: marijuana daily REVIEW OF SYSTEMS IS NEGATIVE PHYSICAL EXAM: BP 125/76 Wt 232 lb (105.2kg) LMP 07/29/2022 NECK: No goiter or thyroid enlargement CHEST: Normal LUNGS: Clear HEART: RRR BREAST: No masses ABDOMEN: Soft, non-tender, No masses PELVIC: Normal external genitalia, no lesions VAGINA: Normal CERVIX: Normal UTERUS: Normal AX - L: No masses AX - R: No masses ASSESSMENT/PLAN: ANNUAL EXAM Pap ordered. Reflex HPV ordered. Reviewed and encouraged self-breast exam. [id number] mg of calcium daily. Encourged a healthy diet and exercise. Return to office in one year or earlier as needed. Maxim Henry MD [facility] 05-03-2022 Miscellaneous Notes Sent patient mychart message Please see patient's message and advise. Thank you! Macarena Patricia RN documented in this encounter [facility] 04-09-2022 Miscellaneous Notes Prescription sent Micaela Pierre MD [facility] called in asking for a new script to be sent to their pharmacy for Isturisa 5mg and 10 mg. [facility] can be reached at [phone] Fax no [phone] documented in this encounter [facility] 04-08-2022 Miscellaneous Notes Resent consent for to patient for her signature. 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, 2003) and gamma knife radiation (2004) with persistent [place] now controlled on osilodrostat, secondary hypothyroidism, secondary amenorrhea and Obesity, here for follow up On Isturisa - on 15 mg BID LT4 150 mcg daily and OCP daily DEXA scan in 05/2020 WNL Norditropin not covered Started on Genotropin 0.4 mg daily - insurance did not cover the 0.6 Had COVID-19 in 06/2020 - had poor appettie Has lost 24 pounds since Grandfather from COVID-19 (vaccinated) Cousin from a heat stroke Dx with ovarian cyst removed in 07/2021 - benign She has noticed significant improvement in energy, weight, muscle mass, and mood Stopping the genotropin has caused detrimental effect on her body composition and metabolic parameters Bone density in 05/2020 was WNL Acne not as bad Hair loss and hirsutism slightly worse on osilodrostat Dx after abnormal weight gain and secondary amenorrhea around age 17 years (2002) Saw Endocrinology at [place] who referred her to Pediatric Endo at [facility] She has been followed by Drs. Hancock and Robert over the past few years Treated with LCI 699 (osilodrostat) as part of a clinical trial since 2012 with good response Currently on 15 mg twice a day Drug now approved by the FDA Also on LT4 150 mcg daily Could not tolerate ketoconazole (elevated liver enzymes) - stopped in 2012 Was on contraception initially for the IOW937 study Had an abnormal Argenine/GHRH stimulation test consistent with severe GH deficiency Was on Neutropin that she stopped prior to 2013 due to cost and insurance coverage BMD WNL in 09/2005 and in 05/2020 Hx of elevated DHEAS with normal testosterone which may be secondary to [place] disease or underlying PCOS Tried depo-porvera - stopped due to side effects Menstrual cycles were irregular in the past Current medications: Levothyroxine 150 mcg daily Osilodrostat: 15 mg BID Paxil 20 mg OD Multivitamin FHx: DM2: Paternal GM 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) History of ovarian cystectomy 07/25/2021 bilateral History of right salpingectomy 07/25/2021 Irregular menstrual cycle Irregular periods Low grade squamous intraepithelial lesion (LGSIL) on cervical Pap smear Obesity, unspecified Polycystic ovaries PAST SURGICAL HISTORY Procedure Laterality Date ENDOCERVICAL CURETTAGE 03/16/2021 HYPOPHYSEC/EXC PITUITARY MIGUELINA TRANSNASAL/SEPTAL 07/2003 Transphenoidal hypophys HYPOPHYSEC/EXC PITUITARY MIGUELINA TRANSNASAL/SEPTAL 12/2003 Transphenoidal hypophys LEEP PROCEDURE ([facility]IDENT DEPT)_*FL 06/07/2010 MRI GAMMA KNIFE LOCAL WWO CONT 2005 pituitary for cushings OVARIAN CYSTECTOMY Bilateral 07/25/2021 serous cystoadenoma SALPINGECTOMY Right 07/25/2021 laparoscopic with excision of bilateral cysts VAGINOSCOPY 03/26/2021 Current Outpatient Medications Medication Sig Dispense Refill osilodrostat (ISTURISA) 5 mg tablet 15 mg twice a day 180 tablet 3 osilodrostat (ISTURISA) 10 mg tablet Take 1 tablet by mouth twice daily. With 5 mg dose to total 15 mg twice a day 60 tablet 3 somatropin (GENOTROPIN) 0.6 mg/0.25 mL injection Inject 0.6 mg subcutaneously once daily. 90 Each 3 Desogestrel-Ethinyl Estradiol (APRI) 0.15-0.03 mg per tablet Take 1 tablet by mouth once daily. 3 Package 4 ketoconazole (NIZORAL) 2 % shampoo PARoxetine (PAXIL) 20 mg tablet Take 20 mg by mouth once daily. levothyroxine (SYNTHROID) 150 mcg tablet TAKE ONE TABLET BY MOUTH ONCE DAILY ON EMPTY STOMACH 90 tablet 3 MULTIVITAMIN ORAL Take 1 tablet by mouth once daily. busPIRone (BUSPAR) 7.5 mg tablet Take 7.5 mg by mouth twice daily. lamoTRIgine (LAMICTAL) 25 mg tablet Take 25 mg by mouth daily at bedtime. acetaminophen (TYLENOL) 325 mg tablet Take 2 tablets by mouth every 6 hours as needed for pain. 45 tablet 0 ibuprofen (MOTRIN) 600 mg tablet Take 1 tablet by mouth every 6 hours as needed for pain. Take with food. 30 tablet 0 iv contrast (will be provided with radiology test) MRI Pituitary Inject, intravenously, once for 1 dose. No IV access, insert saline lock prior to the beginning of sedation, infusion, injection of imaging exam. Discontinue saline lock post exam. If Pt. has a central line or IVAD, may access for administration according to line specific nursing protocol. Once exam is complete flush line and de-access according to line specific nursing protocol in the MR contrast administration guidelines link. 1 Each 0 No current facility-administered medications for this visit. ALLERGIES No Known Allergies FAMILY HISTORY Problem Relation Age of Onset Thyroid Paternal Grandmother Heart Other maternal great grandmother Social History Tobacco Use Smoking status: Never Smoker Smokeless tobacco: Never Used Vaping Use Vaping Use: Never used Substance Use Topics Alcohol use: Yes Alcohol/week: 2.6 standard drinks Types: 2 Mixed Drinks per week Comment: social Drug use: Yes Comment: marijuana daily Review of Systems Answers for HPI/ROS submitted by the patient on 01/01/2022 Fever : No Night Sweats: No Recent Unintentional Weight Change: No Nasal Congestion: Yes Hearing Loss: No Vision Disturbance: No A Cough: No Difficulty Breathing?: No Chest Pain: No Irregular Heart Beat: No Leg Swelling: No Nausea: Yes Diarrhea: No Black Tarry Stools: No Difficulty Urinating?: No Awaken at Night More Than Once to Urinate?: No Joint Pain or Stiffness: Yes Muscle Aches: Yes Leg or Foot Discomfort at Night?: No A Rash: No Dizziness: Yes Headaches: Yes Memory Loss: No Seizures: No Physical examination BP 134/96 Pulse 105 Wt 104.3 kg (230 lb) LMP 12/21/2021 BMI 39.48 kg/m GENERAL: Well nourished, well hydrated, in no distress and oriented x 3 COMMUNICATION: Hearing: normal; VOICE: normal EYES: no thyroid eye signs, Fundi normal and cornea normal. EOMI NECK: no visible nodules or goiter, no bruit, no tenderness and no adenopathies THYROID: smooth, non-tender, 15-20 gram, firm and No palpable nodules EXTREMITIES: No clubbing, no edema, no cyanosis and normal nails NEURO: normal strength, no tremor and normal reflexes SKIN: No rash or lesion No cushingoid features Previous Laboratory Results Component ACTH DHEA-S Cortisol Latest Ref Rng & Units 8 - 42 pg/mL 41.0 - 247.0 ug/dL ug/dL 01/18/2003 06/22/2003 50 621.1 (A) 38.6 06/27/2003 07/05/2003 67 (A) 29.4 07/05/2003 2805 (A) 07/05/2003 850 (A) 07/05/2003 60 (A) 28.1 07/05/2003 3033 (A) 07/05/2003 661 (A) 07/05/2003 70 (A) 28.9 07/05/2003 7175 (A) 07/05/2003 1424 (A) 07/05/2003 82 (A) 27.9 07/05/2003 5175 (A) 07/05/2003 1917 (A) 07/05/2003 98 (A) 33.7 07/05/2003 3102 (A) 07/05/2003 1806 (A) 07/05/2003 104 (A) 33.8 07/05/2003 4900 (A) 07/05/2003 2355 (A) 08/02/2003 37 29.3 08/31/2003 35 11/09/2003 33 12/07/2003 37 12/30/2003 45 34.6 04/28/2006 37 315.7 (H) 10/27/2007 55 (H) 410.0 (H) 39.1 09/18/2011 70 (H) 472.9 (H) 01/15/2012 86 (H) 22.2 04/30/2012 83 (H) 353.3 (H) 26.9 06/29/2012 91 (H) 495.2 (H) 24.0 08/27/2012 67 (H) 368.1 (H) 16.4 09/07/2012 62 (H) 24.8 09/29/2012 73 (H) 23.4 Component Creatinine mg/day, Ur (UFRCRT) Free Cortisol ug/L, Urine Volume, Ur (UFRCRT) Free Cortisol ug/day, Urine Cortisol ug/g Bed Spring Maker, Ur (UFRCRT) Free Cortisol, Urine Free Cortisol, Serum Latest Ref Rng & Units 09/16/2005 1281 1281 35.2 04/11/2006 1298 1273 28.9 10/29/2007 1168 23.60 1229 29.0 11/10/2007 0.46 11/10/2007 1.98 11/10/2007 3.42 09/25/2011 1486 . . . 28.40 . . . 2123 . . . 60.3 (H) . . . 40.57 . . . 04/30/2012 1269 . . . 98.70 . . . 1547 . . . 152.7 (H) . . . 120.37 . . . 06/22/2012 939 . . . 23.30 . . . 1444 . . . 33.6 . . . 35.85 . . . 06/29/2012 1.86 . . . 08/27/2012 0.81 . . . 09/07/2012 937 . . . 55.30 . . . 1442 . . . 79.7 (H) . . . 85.08 . . . Component Cortisol Basal Cortisol 30 min Cortisol 60 min Latest Ref Rng & Units ug/dL ug/dL ug/dL 08/31/2003 23.4 64.8 54.7 11/09/2003 41.5 53.4 53.9 01/18/2004 25.7 45.9 50.9 04/24/2005 21.0 51.8 43.0 Component Cortisol, Saliva AM Cortisol Saliva Midnight Cortisol Saliva Cortisol, 24 Hr Urine Latest Ref Rng & Units 20 - 100 ug/24hr 01/18/2003 258.0 (A) 06/27/2003 2136 723.7 (A) 09/21/2003 56.5 11/14/2003 708 12/12/2003 448.9 (A) 01/18/2004 428 01/20/2004 108.2 (A) 03/12/2004 206.1 (A) 03/14/2004 163 05/22/2004 774 05/23/2004 59.2 08/06/2004 462.9 (A) 08/09/2004 117 10/07/2004 541.6 (A) 04/09/2005 39.0 04/16/2005 132 06/12/2005 33.9 06/13/2005 191 09/24/2005 127 04/11/2006 42 11/19/2007 222 11/24/2007 128 09/18/2011 09/24/2011 67 . . . Component Latest Ref Rng & Units 10/07/2016 LH mU/mL 0.3 Estradiol 17B pg/mL 47 FSH mU/mL 0.4 Component Latest Ref Rng & Units 06/02/2006 Growth Hormone, Basal 0.0 - 3.0 ng/mL 0.2 Growth Hormone, 30 min ng/mL 1.9 Growth Hormone, 60 min ng/mL 1.8 Growth Hormone, 120 min ng/mL 0.4 Growth Hormone 0.0 - 3.0 ng/mL 0.7 Component IGF- I GH Latest Ref Rng & Units 83 - 280 ng/mL 0.0 - 3.0 ng/mL 08/31/2003 165 (A) 11/09/2003 100 (A) 11/08/2005 59 (L) 04/28/2006 40 (L) 06/02/2006 0.7 10/27/2007 57 (L) 09/18/2011 74 (L) 05/30/2020 47 (L) Component Latest Ref Rng & Units 09/18/2011 10/07/2016 05/30/2020 Estradiol 17B pg/mL 46 47 45 FSH mU/mL 1.6 0.4 0.4 LH mU/mL 0.3 0.4 Component Testosterone Testosterone Free % Testosterone Free DHEA-S Latest Ref Rng & Units 20 - 70 ng/dL 0.3 - 1.9 % 1.0 - 9.0 pg/mL 41.0 - 247.0 ug/dL 06/22/2003 61 (A) 1.7 10.4 (A) 621.1 (A) 04/28/2006 57 315.7 (H) 10/27/2007 71 (H) 410.0 (H) 09/18/2011 52 472.9 (H) 04/30/2012 70 353.3 (H) 06/29/2012 495.2 (H) 08/27/2012 53 368.1 (H) Component Prolactin Latest Ref Rng & Units 2.0 - 17.4 ng/mL 07/05/2003 10:50 AM 15.9 07/05/2003 10:50 AM 196.9 (A) 07/05/2003 10:50 AM 52.0 (A) 07/05/2003 10:55 AM 17.1 07/05/2003 10:55 AM 318.7 (A) 07/05/2003 10:55 AM 43.1 (A) 07/05/2003 11:02 AM 16.8 07/05/2003 11:02 AM 262.0 (A) 07/05/2003 11:02 AM 25.8 (A) 07/05/2003 11:05 AM 16.5 07/05/2003 11:05 AM 385.2 (A) 07/05/2003 11:05 AM 38.7 (A) 07/05/2003 11:10 AM 17.4 07/05/2003 11:10 AM 564.3 (A) 07/05/2003 11:10 AM 116.2 (A) 07/05/2003 11:15 AM 17.7 (A) 07/05/2003 11:15 AM 481.3 (A) 07/05/2003 11:15 AM 88.3 (A) 08/31/2003 6.5 11/09/2003 4.9 11/08/2005 4.7 04/28/2006 6.9 09/18/2011 6.6 Component T4 T4 Uptake FTI TSH T3 Free T4 Free T3 Latest Ref Rng & Units 5.0 - 11.0 ug/dL 0.70 - 1.20 6.0 - 11.0 ug/dL 0.270 - 4.200 uU/mL 94 - 170 ng/dL 0.9 - 1.7 ng/dL 1.8 - 4.6 pg/mL 08/31/2003 10.3 1.17 8.8 2.580 201 (A) 11/09/2003 10.5 1.33 (A) 7.9 3.090 209 (A) 11/08/2005 3.540 1.0 3.6 04/28/2006 1.900 1.0 3.6 10/27/2007 9.0 1.36 (H) 6.6 3.380 171 (H) 09/18/2011 4.8 (L) 1.15 4.2 (L) 1.600 106 01/15/2012 7.4 1.08 6.9 113 04/30/2012 1.0 2.7 08/27/2012 0.819 0.8 2.6 05/30/2020 0.097 (L) 1.1 Component Latest Ref Rng & Units 04/06/2018 10/05/2018 05/30/2020 05/30/2020 Protein, Total 6.3 - 8.0 g/dL 7.5 7.6 8.3 (H) Albumin 3.9 - 4.9 g/dL 4.5 4.2 4.3 Calcium 8.5 - 10.2 mg/dL 9.0 9.4 9.7 Bilirubin, Total 0.2 - 1.3 mg/dL 0.4 0.3 0.3 Alkaline Phosphatase 34 - 123 U/L 94 91 90 AST 13 - 35 U/L 18 19 36 (H) Glucose 74 - 99 mg/dL 71 (L) 49 (L) 83 BUN 7 - 21 mg/dL 10 11 11 Creatinine 0.58 - 0.96 mg/dL 0.69 0.70 0.73 Sodium 136 - 144 mmol/L 140 138 138 Potassium 3.7 - 5.1 mmol/L 3.8 4.1 4.0 Chloride 97 - 105 mmol/L 98 98 101 CO2 22 - 30 mmol/L 23 26 25 Anion Gap 9 - 18 mmol/L 19 (H) 14 12 ALT 7 - 38 U/L 25 27 53 (H) eGFR- >60 >60 >60 eGFR-All Other Races . >60 >60 >60 Cholesterol, Total <200 mg/dL 151 185 201 (H) Triglyceride <150 mg/dL 246 (H) 168 (H) 404 (H) HDL Cholesterol >39 mg/dL 28 (L) 35 (L) 29 (L) LDL Cholesterol <100 mg/dL 74 116 (H) 111 (H) Non HDL Cholesterol <130 mg/dL 123 150 (H) 172 (H) Fasting Time hrs Unknown Unknown 12 Hemoglobin A1C 4.3 - 5.6 % 5.2 LDL Cholesterol, Direct <100 mg/dL 111 (H) Magnesium 1.7 - 2.3 mg/dL 2.0 2.3 2.2 Uric Acid 2.5 - 6.6 mg/dL 6.0 6.2 8.5 (H) GGT 6 - 46 U/L 39 Insulin-like Growth Factor I 83 - 280 ng/mL 47 (L) FSH mU/mL 0.4 LH mU/mL 0.4 Estradiol 17B pg/mL 45 Free T4 0.9 - 1.7 ng/dL 1.1 TSH 0.270 - 4.200 uU/mL 0.097 (L) hCG Quantitative, Blood <5.0 mU/mL <0.6 Component Latest Ref Rng & Units 05/30/2020 06/04/2021 11/05/2021 Protein, Total 6.3 - 8.0 g/dL 8.3 (H) 7.4 Albumin 3.9 - 4.9 g/dL 4.3 4.1 Calcium 8.5 - 10.2 mg/dL 9.7 9.7 Bilirubin, Total 0.2 - 1.3 mg/dL 0.3 0.2 Alkaline Phosphatase 34 - 123 U/L 90 60 AST 13 - 35 U/L 36 (H) 24 Glucose 74 - 99 mg/dL 83 77 BUN 7 - 21 mg/dL 11 9 Creatinine 0.58 - 0.96 mg/dL 0.73 0.75 Sodium 136 - 144 mmol/L 138 139 Potassium 3.7 - 5.1 mmol/L 4.0 3.6 (L) 4.2 Chloride 97 - 105 mmol/L 101 103 CO2 22 - 30 mmol/L 25 24 Anion Gap 9 - 18 mmol/L 12 12 ALT 7 - 38 U/L 53 (H) 17 eGFR- >60 >60 eGFR-All Other Races . >60 >60 Hemoglobin A1C 4.3 - 5.6 % 5.2 5.0 Estimated Average Glucose mg/dL 103 97 Insulin-like Growth Factor I 82 - 279 ng/mL 47 (L) 26 (L) 50 (L) FSH mU/mL 0.4 LH mU/mL 0.4 Estradiol 17B pg/mL 45 Free T4 0.9 - 1.7 ng/dL 1.1 1.1 TSH 0.270 - 4.200 uU/mL 0.097 (L) Pituitary MRI 02/2020: Postsurgical changes without evidence for recurrent tumor. 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 Adenohypophysis: Mostly empty sella is again noted with recurrent sellar or suprasellar mass. Minimal enhancement along the floor the sella is likely due to residual pituitary gland. Posterior Pituitary Gland: Ppsterior pituitary gland present and normal in size and location. Suprasellar Region: No evidence of a suprasellar mass. The infundibulum is intact. 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 Hancock and Robert over the past few years -- Was on ketoconazole in 2012 that was discontinued after elevated liver enzymes -- Treated with LCI 699 (osilodrostat) as part of a clinical trial since 2012 with good response -- Currently on 15 mg twice a day -- Last 24 hour urine cortisol in 08/2012 -- Drug now approved by the FDA -- No significant side effects, BP at goal, no edema, no evidence of AI, no N/V -- Magnesium and potassium levels at goal -- No palpitations -- Mild increase in hirsutism and hair loss -- Last pituitary MRI in 02/2020 - stable -- Will repeat MRI - if stable, next in 3 years Secondary Hypothyroidism: -- Clinically euthyroid -- Continue with levothyroxine 150 mcg daily -- FT4 in 05/2021 at goal (1.1) -- Yearly FT4 levels, earlier if symptomatic Secondary Amenorrhea: -- Was following with Dr. Patterson ([facility]) - last visit in 2016 -- Stopped OCP due to insurance issues - recently got her insurance back -- Tried depo-porvera - stopped due to side effects -- Menstrual cycles were irregular in the past -- Hx of elevated DHEAS with normal testosterone - ? due to [place] disease or underlying PCOS -- Re-established care with OBGYN -- D&C WNL -- On OCP -- BMD in 05/2020 WNL -- S/p ovarian mass excision in 07/2021 - benign -- Repeat DEXA scan in 05/2025 Secondary GH deficiency: -- Abnormal Argenine/GHRH stimulation test consistent with severe GH deficiency -- Was on Neutropin that she stopped prior to 2013 due to cost and insurance coverage -- On genotropin 0.4 mg daily (awaiting approval for 0.6 mg) -- Repeat IGF-1 in 6 weeks after increase to 0.6 mg -- Will monitor for diabetes DLP: -- Dietary changes reviewed -- Will repeat Elevated transaminase: -- Referred to GI - has not seen them -- Will repeat levels Obesity: -- Will avoid medical therapy given HTN and current medications -- Will avoid PSMF given elevated UA -- She has lost weight recently -- She will work on dietary changes and exercise -- Can consider GLP-1 agonist therapy Patient to continue to follow up with PCP and with other consultants regarding other medical problems. The patient will follow up in 6 months. Micaela Pierre MD documented in this encounter [facility] 01-02-2022 Instructions Shahriar Whittaker Ma - 01/02/2022 10:09 AM EDT Thank you for choosing the [facility] Department of Endocrinology, Diabetes and Metabolism. Did you know that you need to call 48 hours in advance of your scheduled visit, if you are unable to make your appointment? The Endocrinology and Metabolism [place] thanks you for your commitment, because patients not showing to their appointment results in a lost opportunity for patients to receive [facility] health care at the [facility]. To Cancel an appointment, please choose one of the following: - Call the Appointment Call Center at [phone] - From [facility], Go to Appointments Cancel Appts If cancelling, consider your need to reschedule to prevent further delays in your care. To Schedule an appointment, please choose one of the following: - Call the Appointment Call Center at [phone] - From [facility], Go to Appointments Request an Appt 1. Blood work today 2. Pituitary MRI after the blood work - you can also call [phone] to schedule the MRI 3. We will work on getting the Genotropin 4. Follow up in 6 months documented in this encounter [facility] 12-20-2021 Miscellaneous Notes [facility] pharmacy called and received prescription for osilodrostat (ISTURISA) 10 mg tablet but they still need prescription for 5mg tablet documented in this encounter [facility] 12-19-2021 Miscellaneous Notes Initiated PA for Genotroprin through [facility] via Epic Questions completed Attached chart notes Cancelled PA since patient states that she is supposed to be on the 0.[address] Dov Pierre message to put in a new prescription. Original PA was valid from 11/08/2020 - 12/08/2021 Allison called requesting a PA for this pt for GENOTROPIN 0.4 /0.25ML SYRG. Allison stated she was authorized until 2022 but PA will be over November. Allison ID#[id number] Auth# [id number] documented in this encounter [facility] 09-27-2021 Miscellaneous Notes I called the patient and reviewed results- LSIL pap. She verbalizes understanding and questions answered. She is aware she needs a repeat Pap in 6 months. She will call with any further questions or concerns. Lia Wayne RN Repeat pap in 6 months. documented in this encounter [facility] 09-17-2021 History of Present illness Narrative SUBJECTIVE: Angela Nguyen is a 36 year old female Patient presents with: Repeat Pap She had ovarian cysts and the right FT removed 2 months ago. Was benign. CURRENT MEDICATIONS: Current Outpatient Medications Medication Sig Somatropin (GENOTROPIN) 0.4 mg/0.25 mL syrg Inject 0.4 mg subcutaneously once daily. Desogestrel-Ethinyl Estradiol (APRI) 0.15-0.03 mg per tablet Take 1 tablet by mouth once daily. osilodrostat (ISTURISA) 5 mg tablet Take 1 tablet by mouth twice daily. With 10 mg to total 15 mg twice a day osilodrostat (ISTURISA) 10 mg tablet Take 1 tablet by mouth twice daily. With 5 mg dose to total 15 mg twice a day ketoconazole (NIZORAL) 2 % shampoo PARoxetine (PAXIL) 20 mg tablet Take 20 mg by mouth once daily. levothyroxine (SYNTHROID) 150 mcg tablet TAKE ONE TABLET BY MOUTH ONCE DAILY ON EMPTY STOMACH MULTIVITAMIN ORAL Take 1 tablet by mouth once daily. acetaminophen (TYLENOL) 325 mg tablet Take 2 tablets by mouth every 6 hours as needed for pain. (Patient not taking: Reported on 09/12/2021 ) ibuprofen (MOTRIN) 600 mg tablet Take 1 tablet by mouth every 6 hours as needed for pain. Take with food. (Patient not taking: Reported on 09/12/2021 ) iv contrast (will be provided with radiology test) MRI Pituitary Inject, intravenously, once for 1 dose. No IV access, insert saline lock prior to the beginning of sedation, infusion, injection of imaging exam. Discontinue saline lock post exam. If Pt. has a central line or IVAD, may access for administration according to line specific nursing protocol. Once exam is complete flush line and de-access according to line specific nursing protocol in the MR contrast administration guidelines link. (Patient not taking: Reported on 09/17/2021 ) No current facility-administered medications for this visit. Reviewed: PAST SURGICAL HISTORY Procedure Laterality Date ENDOCERVICAL CURETTAGE 03/16/2021 HYPOPHYSEC/EXC PITUITARY MIGUELINA TRANSNASAL/SEPTAL 07/2003 Transphenoidal hypophys HYPOPHYSEC/EXC PITUITARY MIGUELINA TRANSNASAL/SEPTAL 12/2003 Transphenoidal hypophys LEEP PROCEDURE ([facility] PRESIDENT DEPT)_*FL 06/07/2010 MRI GAMMA KNIFE LOCAL WWO CONT 2005 pituitary for cushings OVARIAN CYSTECTOMY Bilateral 07/25/2021 serous cystoadenoma SALPINGECTOMY Right 07/25/2021 laparoscopic with excision of bilateral cysts VAGINOSCOPY 03/26/2021 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) History of ovarian cystectomy 07/25/2021 bilateral History of right salpingectomy 07/25/2021 Irregular menstrual cycle Irregular periods Low grade squamous intraepithelial lesion (LGSIL) on cervical Pap smear Obesity, unspecified Polycystic ovaries Social History Tobacco Use Smoking status: Never Smoker Smokeless tobacco: Never Used Vaping Use Vaping Use: Never used Substance Use Topics Alcohol use: Yes Alcohol/week: 2.6 standard drinks Types: 2 Mixed Drinks per week Comment: social Drug use: Yes Comment: marijuana daily Patient has no known allergies. Labs: Hemoglobin A1C (%) Date Value 06/04/2021 5.0 ) Cholesterol, Total Date Value Ref Range Status 05/30/2020 201 (H) <200 mg/dL Final Comment: <200 mg/dL, Desirable 200-239 mg/dL, Borderline high >239 mg/dL, High HDL Cholesterol Date Value Ref Range Status 05/30/2020 29 (L) >39 mg/dL Final Comment: 40-59 mg/dL, Acceptable >59 mg/dL, High: Negative risk factor for coronary heart disease <40 mg/dL, Low: Positive risk factor for coronary heart disease LDL Cholesterol Date Value Ref Range Status 05/30/2020 <100 mg/dL Final Unable to calculate due to increased Triglycerides. See LDL-Chol, Direct. Triglyceride Date Value Ref Range Status 05/30/2020 404 (H) <150 mg/dL Final Comment: <150 mg/dL, Normal 150-199 mg/dL, Borderline high 200-499 mg/dL, High >499 mg/dL, Very high REVIEW OF SYSTEMS:GENERAL: No weight loss, malaise or fevers HEENT: Negative for frequent or significant headaches, No changes in hearing or vision, no nose bleeds or other nasal problems NECK: Negative for lumps, goiter, pain and significant neck swelling RESPIRATORY: Negative for cough, hemoptysis, wheezing, COPD, dyspnea or shortness of breath CARDIOVASCULAR: Negative for chest pain, leg swelling, hypertension, CHF or palpitations GI: No nausea, vomiting, or diarrhea PHYSICAL EXAMINATION: BP 155/105 Pulse 100 Ht 5' 4 (1.63m) Wt 226 lb (102.5kg) LMP 08/25/2021 BMI 38.77 kg/(m^2). GENERAL APPEARANCE: pleasant, well developed, well nourished, white female in no apparent distress NECK: Full range of motion, no adenopathy, thyroid normal, no goiter and lymphnodes normal, no lymphadenopathy ABDOMEN: Soft, non-tender, no hernia and No organmegaly PELVIC: vulva/vagina no lesions or discharge, cervix no lesions, discharge, or motion tenderness, uterus is anteverted, adnexa no palpable masses ASSESSMENT/PLAN: 1. Low grade squamous intraepithelial lesion (LGSIL) on cervical Pap smear - ICD9: 795.03, ICD10: R87.612 (primary diagnosis) Counseled Awaits pap. I spent a total of 30 minutes on the date of the service which included preparing to see the patient, [id number] patient care, completing clinical documentation, performing a medically appropriate examination, counseling and educating the patient/family/caregiver and ordering medications, tests, or procedures. - PAP FLUID CERVICAL SCREENING 2. Screening for cervical cancer - ICD9: V76.2, ICD10: Z12.4 - Completed pelvic and breast exam - Encouraged monthly BSE - Follow up for annual exam in one year. - PAP FLUID CERVICAL SCREENING Maxim Henry MD documented in this encounter [facility] 09-17-2021 Nurse Note Campus Supervisor offered: Patient accepts, visit chaperoned by Carol. documented in this encounter [facility] 09-12-2021 History of Present illness Narrative Images from the original note were not included. [facility] [place] SECTION FOR MINIMALLY INVASIVE GYNECOLOGIC SURGERY OUTPATIENT VISIT DATE 09/12/2021 OUTPATIENT VISIT TYPE POST OPERATIVE FOLLOW UP History: Angela Nguyen is a 36 year old female here for post operative follow up appointment. She underwent Laparoscopic right salpingectomy, excision of right para-tubal cyst. Left excision of para-tubal cyst. on 07/25/2021 indicated for : Bilateral adnexal masses, jensen disease, class II obesity. She reports feeling better since her procedure. Her appetite is normal . She describes her pain as no pain presently}. She is currently taking nothing for pain control. She has had sexual intercourse since the procedure. Denies nausea/vomiting/chest pain/shortness of breath. Ambulating well. No issues with voiding or BMs. Operative findings included: Anterior cul-de-sac- Moderate adhesions of the vesico-uterine peritoneum Posterior cul-de-sac- No lesions Left ovarian fossa- No lesions Right ovarian fossa- No lesions Uterosacral ligaments- No lesions Uterus- normal appearing fallopian tubes and ovaries- Right: Large paratubal cyst in the meso-salpinx, distal tube was discernable. Cystic lesions likely arising from the distal right tube. Normal ovary. Left: Large paratubal cyst also within the meso-salpinx and distal tube was spared Bowel and Appendix- normal appearing Diaphragmatic peritoneum- normal appearing Bilateral cystic lesion with clear fluid 2400 cc The pathology report reveals: FINAL DIAGNOSIS 1. Left ovary, cyst, cystectomy (A): - Serous cystadenoma. 2. Right ovarian cyst and fallopian tube, cystectomy, and salpingectomy (B): - Serous cystadenoma. - Fallopian tube with no significant pathologic ROS: Constitutional: Denies fever or chills GI: Denies abdominal pain, nausea, vomiting, bloody stools or diarrhea : Denies dysuria Integument: Denies rash Psychiatric: Denies depression or anxiety Exam: Vitals: 09/12/21 1356 BP: 139/98 Pulse: 120 Weight: 103.4 kg (228 lb) Height: 162.6 cm (5' 4 ) @HTWT@ Body mass index is 39.14 kg/m . Neuro/psych: Alert and oriented x 3 in a pleasant mood Skin: Warm, dry and intact Abdomen: Soft, non tender, non distended, no hepatosplenomegaly or hernias. Incision: Incisions healing well Pelvic: Def Assessment: Ms. Anglea Nguyen is a 36 year old female presenting for postop check status post Laparoscopic right salpingectomy, excision of right para-tubal cyst. Left excision of para-tubal cyst. on 07/25/2021 Plan: -May continue to increase physical activity as tolerated -May resume intercourse -Follow up with general provider for annual care -All questions answered and pt agrees with plan Scribe Attestation: By signing my name below, I, Gladis Islas Ma, attest that this documentation has been prepared under the direction and in the presence of Dennis Joshi MD. Electronically Signed:ileana Eng Ma, September 12, 2021 10:10 AM Dennis Joshi MD documented in this encounter [facility] 07-25-2021 History of Past i llness Narrative Problem Noted Date Resolved Date Cysts of both ovaries 07/25/2021 07/25/2021 Hypothyroidism 09/07/2012 12/31/2014 documented as of this encounter (statuses as of 09/12/2021) [address]09-2022 History of Past illness Narrative* Problem Noted Date Resolved Date Cysts of both ovaries 07/25/2021 07/25/2021 Hypothyroidism 09/07/2012 12/31/2014 documented as of this encounter (statuses as of 09/17/2021) [address]22 History of Past illness Narrative* Problem Noted Date Resolved Date Cysts of both ovaries 07/25/2021 07/25/2021 Hypothyroidism 09/07/2012 12/31/2014 documented as of this encounter (statuses as of 09/27/2021) [address]09-2022 History of Past illness Narrative* Problem Noted Date Resolved Date Cysts of both ovaries 07/25/2021 07/25/2021 Hypothyroidism 09/07/2012 12/31/2014 documented as of this encounter (statuses as of 12/19/2021) [facility] History of Past illness Narrative* Problem Noted Date Resolved Date Cysts of both ovaries 07/25/2021 07/25/2021 Hypothyroidism 09/07/2012 12/31/2014 documented as of this encounter (statuses as of 12/25/2021) [address]22 History of Past illness Narrative* Problem Noted Date Resolved Date Cysts of both ovaries 07/25/2021 07/25/2021 Hypothyroidism 09/07/2012 12/31/2014 documented as of this encounter (statuses as of 01/02/2022) [address]22 History of Past illness Narrative* Problem Noted Date Resolved Date Cysts of both ovaries 07/25/2021 07/25/2021 Hypothyroidism 09/07/2012 12/31/2014 documented as of this encounter (statuses as of 04/08/2022) [address]22 History of Past illness Narrative* Problem Noted Date Resolved Date Cysts of both ovaries 07/25/2021 07/25/2021 Hypothyroidism 09/07/2012 12/31/2014 documented as of this encounter (statuses as of 04/09/2022) [address]22 History of Past illness Narrative* Problem Noted Date Resolved Date Cysts of both ovaries 07/25/2021 07/25/2021 Hypothyroidism 09/07/2012 12/31/2014 documented as of this encounter (statuses as of 05/03/2022) [facility] History of Past illness Narrative* Problem Noted Date Resolved Date Cysts of both ovaries 07/25/2021 07/25/2021 Hypothyroidism 09/07/2012 12/31/2014 documented as of this encounter (statuses as of 06/24/2022) [facility] History of Past illness Narrative* Problem Noted Date Resolved Date Cysts of both ovaries 07/25/2021 07/25/2021 Hypothyroidism 09/07/2012 12/31/2014 documented as of this encounter (statuses as of 07/16/2022) [facility] History of Past illness Narrative* Problem Noted Date Resolved Date Cysts of both ovaries 07/25/2021 07/25/2021 Hypothyroidism 09/07/2012 12/31/2014 documented as of this encounter (statuses as of 08/17/2022) [facility] History of Past illness Narrative* Problem Noted Date Resolved Date Cysts of both ovaries 07/25/2021 07/25/2021 Hypothyroidism 09/07/2012 12/31/2014 documented as of this encounter (statuses as of 08/23/2022) [facility] History of Past illness Narrative* Problem Noted Date Resolved Date Cysts of both ovaries 07/25/2021 07/25/2021 Hypothyroidism 09/07/2012 12/31/2014 documented as of this encounter (statuses as of 08/28/2022) [facility] History of Past illness Narrative* Problem Noted Date Resolved Date Cysts of both ovaries 07/25/2021 07/25/2021 Hypothyroidism 09/07/2012 12/31/2014 documented as of this encounter (statuses as of 09/03/2022) [facility] History of Past illness Narrative* Problem Noted Date Resolved Date Cysts of both ovaries 07/25/2021 07/25/2021 Hypothyroidism 09/07/2012 12/31/2014 documented as of this encounter (statuses as of 10/02/2022) [facility] History of Past illness Narrative* Problem Noted Date Resolved Date Cysts of both ovaries 07/25/2021 07/25/2021 Hypothyroidism 09/07/2012 12/31/2014 documented as of this encounter (statuses as of 10/07/2022) [facility] History of Past illness Narrative* Problem Noted Date Resolved Date Cysts of both ovaries 07/25/2021 07/25/2021 Hypothyroidism 09/07/2012 12/31/2014 documented as of this encounter (statuses as of 10/10/2022) [facility] History of Past illness Narrative* Problem Noted Date Resolved Date Cysts of both ovaries 07/25/2021 07/25/2021 Hypothyroidism 09/07/2012 12/31/2014 documented as of this encounter (statuses as of 10/14/2022) [facility] History of Past illness Narrative* Problem Noted Date Resolved Date Cysts of both ovaries 07/25/2021 07/25/2021 Hypothyroidism 09/07/2012 12/31/2014 documented as of this encounter (statuses as of 10/25/2022) [facility] History of Past illness Narrative* Problem Noted Date Diagnosed Date Resolved Date Cysts of both ovaries 07/25/20212021 Hypothyroidism 09/07/2012 12/31/2014 documented as of this encounter (statuses as of 01/15/2023) [facility] History of Past illness Narrative* Problem Noted Date Diagnosed Date Resolved Date Cysts of both ovaries 07/25/20212021 Hypothyroidism 09/07/2012 12/31/2014 documented as of this encounter (statuses as of 03/07/2023) [facility] History of Past illness Narrative* Problem Noted Date Diagnosed Date Resolved Date Cysts of both ovaries 07/25/20212021 Hypothyroidism 09/07/2012 12/31/2014 documented as of this encounter (statuses as of 03/11/2023) [facility] History of Past illness Narrative* Problem Noted Date Diagnosed Date Resolved Date Cysts of both ovaries 07/25/20212021 Hypothyroidism 09/07/2012 12/31/2014 documented as of this encounter (statuses as of 03/12/2023) [facility] of Past illness Narrative* Problem Noted Date Diagnosed Date Resolved Date Cysts of both ovaries 07/25/20212021 Hypothyroidism 09/07/2012 12/31/2014 documented as of this encounter (statuses as of 03/22/2023) [facility] History of Past illness Narrative* Problem Noted Date Diagnosed Date Resolved Date Cysts of both ovaries 07/25/20212021 Hypothyroidism 09/07/2012 12/31/2014 documented as of this encounter (statuses as of 04/19/2023) [address]-2022 History of Past illness Narrative* Problem Noted Date Diagnosed Date Resolved Date Cysts of both ovaries 07/25/20212021 Hypothyroidism 09/07/2012 12/31/2014 documented as of this encounter (statuses as of 04/23/2023) [facility] of Past illness Narrative* Problem Noted Date Diagnosed Date Resolved Date Cysts of both ovaries 07/25/20212021 Hypothyroidism 09/07/2012 12/31/2014 documented as of this encounter (statuses as of 04/24/2023) [address]-2022 History of Past illness Narrative* Problem Noted Date Diagnosed Date Resolved Date Cysts of both ovaries 07/25/20212021 Hypothyroidism 09/07/2012 12/31/2014 documented as of this encounter (statuses as of 05/03/2023) [address]-2022 History of Past illness Narrative* Problem Noted Date Diagnosed Date Resolved Date Cysts of both ovaries 07/25/20212021 Hypothyroidism 09/07/2012 12/31/2014 documented as of this encounter (statuses as of 05/21/2023) [address]-2022 History of Past illness Narrative* Problem Noted Date Diagnosed Date Resolved Date Cysts of both ovaries 07/25/20212021 Hypothyroidism 09/07/2012 12/31/2014 documented as of this encounter (statuses as of 05/26/2023) [address]-2022 History of Past illness Narrative* Problem Noted Date Diagnosed Date Resolved Date Cysts of both ovaries 07/25/20212021 Hypothyroidism 09/07/2012 12/31/2014 documented as of this encounter (statuses as of 05/30/2023) [facility] of Past illness Narrative* Problem Noted Date Diagnosed Date Resolved Date Cysts of both ovaries 07/25/20212021 Hypothyroidism 09/07/2012 12/31/2014 documented as of this encounter (statuses as of 07/18/2023) [facility] History of Past illness Narrative* Problem Noted Date Diagnosed Date Resolved Date Cysts of both ovaries 07/25/20212021 Hypothyroidism 09/07/2012 12/31/2014 documented as of this encounter (statuses as of 07/29/2023) [facility] note* Diagnosis Post-operative state- Primary Other postprocedural status [facility] Diagnosis Low grade squamous intraepithelial lesion (LGSIL) on cervical Pap smear- Primary Papanicolaou smear of cervix with low grade squamous intraepithelial lesion (LGSIL) Screening for cervical cancer Screening for malignant neoplasm of the cervix [facility] Diagnosis 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 [facility] Diagnosis 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 Other postprocedural endocrine and metabolic complications and disorders Central hypothyroidism Unspecified hypothyroidism 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 Dyslipidemia Other and unspecified hyperlipidemia [facility] Diagnosis GHD (growth hormone deficiency) (HCC) 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 Unspecified hypothyroidism 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 [facility] Diagnosis GHD (growth hormone deficiency) (HCC) 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 Unspecified hypothyroidism 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 [facility] Diagnosis 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 (HCC) Panhypopituitarism [facility] Diagnosis [place] disease (HCC)- Primary [place]'s syndrome Abnormal brain MRI Nonspecific (abnormal) findings on radiological and other examination of skull and head History of pituitary adenoma History of pituitary surgery Other postprocedural status Pituitary disorder (HCC) Unspecified disorder of the pituitary gland and its hypothalamic control ACTH elevation Other corticoadrenal overactivity Acquired hypothyroidism Unspecified hypothyroidism Growth hormone deficiency (HCC) Pituitary dwarfism Secondary amenorrhea Absence of menstruation [facility] Diagnosis Class 3 severe obesity due to excess calories with serious comorbidity and body mass index (BMI) of 40.0 to 44.9 in adult (HCC)- 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 History of pituitary adenoma ACTH elevation Other corticoadrenal overactivity Acquired hypothyroidism Unspecified hypothyroidism Growth hormone deficiency (HCC) 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 documented in this encounter [facility] Summary Purpose Family History No Family History Records FoundNo Family History Records FoundNo Family History Records FoundNo Family History Records Found Advance Directives Documents on File Type Date Recorded 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 Advance Directive(s) 06/25/2021 5:42 PM Advance Directive(s) 06/02/2020 9:44 AM Documents on File Type Date Recorded 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 Advance Directive(s) 06/25/2021 5:42 PM Advance Directive(s) 06/02/2020 9:44 AM Reason for Referral Specialty Diagnoses / Procedures Referred By Nanda santacruz Referred To Contact [facility] Diagnoses Hypophysectomy-induced hypopituitarism (HCC) Other postprocedural endocrine and metabolic complications and disorders Procedures MRI PITUITARY WO/W IVCON MRI BRAIN BRAIN STEM W/O W/[place] [id number] [place] [address] [facility] Referral ID Status Reason Start Date Expiration Date Visits Requested Visits Authorized [id number] Pending Review Auto-Generat ed Referral 01/02/2022 02/01/2023 1 1 Specialty Diagnoses / Procedures Referred By Contac t Referred To Contact [facility] IMAGING Diagnoses Abnormal brain MRI Jensen disease (HCC) History of pituitary adenoma History of pituitary surgery Pituitary disorder (HCC) ACTH elevation Procedures MRI PITUITARY WO/W IVCON MRI BRAIN BRAIN STEM W/O W/CONTRAST MATERIAL Padmini Perez MD [address] [place] [address] [facility] [place] [address] Referral ID Status Reason Start Date Expiration Date Visits Requested Visits Authorized [id number] Pending Review Auto-Generat ed Referral 04/23/2023 05/22/2024 1 1 Specialty Diagnoses / Procedures Referred By Nanda santacruz Referred To Contact Padmini Perez MD [address] [place] [address] Referral ID Status Reason Start Date Expiration Date V isits Requested Visits Authorized [id number] Pending Review 1 1 Additional Source Comments INFORMATION SOURCE (unrecogn ized section and content) DATE CREATED AUTHOR 06/06/2020 [facility] DATE CREATED AUTHOR AUTHOR'S ORGANIZ ATION 08/07/2022 [facility] DATE CREATED AUTHOR AUTHOR'S ORGANIZ ATION 06/20/2023 [facility] DATE CREATED AUTHOR AUTHOR'S ORGANIZ ATION 07/20/2023 [facility] Source Comments (unrecognize d section and content) In the event this informatio n is protected by the Federal Confidentiality of Alcohol and Drug Abuse Patient Records regulations: The Federal rules restrict any use of the information to criminally investigate or prosecute any alcohol or drug abuse patient.[facility] the event this information is protected by the Federal Confidentiality of Alcohol and Drug Abuse Patient Records regulations: The Federal rules restrict any use of the information to criminally investigate or prosecute any alcohol or drug abuse patient.[facility] the event this information is protected by the Federal Confidentiality of Alcohol and Drug Abuse Patient Records regulations: The Federal rules restrict any use of the information to criminally investigate or prosecute any alcohol or drug abuse patient.[facility] the event this information is protected by the Federal Confidentiality of Alcohol and Drug Abuse Patient Records regulations: The Federal rules restrict any use of the information to criminally investigate or prosecute any alcohol or drug abuse patient.[facility] the event this information is protected by the Federal Confidentiality of Alcohol and Drug Abuse Patient Records regulations: The Federal rules restrict any use of the information to criminally investigate or prosecute any alcohol or drug abuse patient.[facility] the event this information is protected by the Federal Confidentiality of Alcohol and Drug Abuse Patient Records regulations: The Federal rules restrict any use of the information to criminally investigate or prosecute any alcohol or drug abuse patient.[facility] the event this information is protected by the Federal Confidentiality of Alcohol and Drug Abuse Patient Records regulations: The Federal rules restrict any use of the information to criminally investigate or prosecute any alcohol or drug abuse patient.[facility] the event this information is protected by the Federal Confidentiality of Alcohol and Drug Abuse Patient Records regulations: The Federal rules restrict any use of the information to criminally investigate or prosecute any alcohol or drug abuse patient.[facility] the event this information is protected by the Federal Confidentiality of Alcohol and Drug Abuse Patient Records regulations: The Federal rules restrict any use of the information to criminally investigate or prosecute any alcohol or drug abuse patient.[facility] the event this information is protected by the Federal Confidentiality of Alcohol and Drug Abuse Patient Records regulations: The Federal rules restrict any use of the information to criminally investigate or prosecute any alcohol or drug abuse patient.[facility] the event this information is protected by the Federal Confidentiality of Alcohol and Drug Abuse Patient Records regulations: The Federal rules restrict any use of the information to criminally investigate or prosecute any alcohol or drug abuse patient.[facility] the event this information is protected by the Federal Confidentiality of Alcohol and Drug Abuse Patient Records regulations: The Federal rules restrict any use of the information to criminally investigate or prosecute any alcohol or drug abuse patient.[facility] the event this information is protected by the Federal Confidentiality of Alcohol and Drug Abuse Patient Records regulations: The Federal rules restrict any use of the information to criminally investigate or prosecute any alcohol or drug abuse patient.[facility] ClinicIn the event this information is protected by the Federal Confidentiality of Alcohol and Drug Abuse Patient Records regulations: The Federal rules restrict any use of the information to criminally investigate or prosecute any alcohol or drug abuse patient.[facility] HospitalIn the event this information is protected by the Federal Confidentiality of Alcohol and Drug Abuse Patient Records regulations: The Federal rules restrict any use of the information to criminally investigate or prosecute any alcohol or drug abuse patient.[facility] HospitalIn the event this information is protected by the Federal Confidentiality of Alcohol and Drug Abuse Patient Records regulations: The Federal rules restrict any use of the information to criminally investigate or prosecute any alcohol or drug abuse patient.[facility] HospitalIn the event this information is protected by the Federal Confidentiality of Alcohol and Drug Abuse Patient Records regulations: The Federal rules restrict any use of the information to criminally investigate or prosecute any alcohol or drug abuse patient.[facility] HospitalIn the event this information is protected by the Federal Confidentiality of Alcohol and Drug Abuse Patient Records regulations: The Federal rules restrict any use of the information to criminally investigate or prosecute any alcohol or drug abuse patient.[facility] HospitalIn the event this information is protected by the Federal Confidentiality of Alcohol and Drug Abuse Patient Records regulations: The Federal rules restrict any use of the information to criminally investigate or prosecute any alcohol or drug abuse patient.[facility] HospitalIn the event this information is protected by the Federal Confidentiality of Alcohol and Drug Abuse Patient Records regulations: The Federal rules restrict any use of the information to criminally investigate or prosecute any alcohol or drug abuse patient.[facility] HospitalIn the event this information is protected by the Federal Confidentiality of Alcohol and Drug Abuse Patient Records regulations: The Federal rules restrict any use of the information to criminally investigate or prosecute any alcohol or drug abuse patient.[facility] HospitalIn the event this information is protected by the Federal Confidentiality of Alcohol and Drug Abuse Patient Records regulations: The Federal rules restrict any use of the information to criminally investigate or prosecute any alcohol or drug abuse patient.[facility] HospitalIn the event this information is protected by the Federal Confidentiality of Alcohol and Drug Abuse Patient Records regulations: The Federal rules restrict any use of the information to criminally investigate or prosecute any alcohol or drug abuse patient.[facility] HospitalIn the event this information is protected by the Federal Confidentiality of Alcohol and Drug Abuse Patient Records regulations: The Federal rules restrict any use of the information to criminally investigate or prosecute any alcohol or drug abuse patient.[facility] HospitalIn the event this information is protected by the Federal Confidentiality of Alcohol and Drug Abuse Patient Records regulations: The Federal rules restrict any use of the information to criminally investigate or prosecute any alcohol or drug abuse patient.[facility] HospitalIn the event this information is protected by the Federal Confidentiality of Alcohol and Drug Abuse Patient Records regulations: The Federal rules restrict any use of the information to criminally investigate or prosecute any alcohol or drug abuse patient.[facility] HospitalIn the event this information is protected by the Federal Confidentiality of Alcohol and Drug Abuse Patient Records regulations: The Federal rules restrict any use of the information to criminally investigate or prosecute any alcohol or drug abuse patient.[facility] HospitalIn the event this information is protected by the Federal Confidentiality of Alcohol and Drug Abuse Patient Records regulations: The Federal rules restrict any use of the information to criminally investigate or prosecute any alcohol or drug abuse patient.[facility] HospitalIn the event this information is protected by the Federal Confidentiality of Alcohol and Drug Abuse Patient Records regulations: The Federal rules restrict any use of the information to criminally investigate or prosecute any alcohol or drug abuse patient.[facility] HospitalIn the event this information is protected by the Federal Confidentiality of Alcohol and Drug Abuse Patient Records regulations: The Federal rules restrict any use of the information to criminally investigate or prosecute any alcohol or drug abuse patient.[facility] HospitalIn the event this information is protected by the Federal Confidentiality of Alcohol and Drug Abuse Patient Records regulations: The Federal rules restrict any use of the information to criminally investigate or prosecute any alcohol or drug abuse patient.[facility] HospitalIn the event this information is protected by the Federal Confidentiality of Alcohol and Drug Abuse Patient Records regulations: The Federal rules restrict any use of the information to criminally investigate or prosecute any alcohol or drug abuse patient.[facility] HospitalIn the event this information is protected by the Federal Confidentiality of Alcohol and Drug Abuse Patient Records regulations: The Federal rules restrict any use of the information to criminally investigate or prosecute any alcohol or drug abuse patient.[facility] HospitalIn the event this information is protected by the Federal Confidentiality of Alcohol and Drug Abuse Patient Records regulations: The Federal rules restrict any use of the information to criminally investigate or prosecute any alcohol or drug abuse patient.[facility] HospitalIn the event this information is protected by the Federal Confidentiality of Alcohol and Drug Abuse Patient Records regulations: The Federal rules restrict any use of the information to criminally investigate or prosecute any alcohol or drug abuse patient.[facility] Reason for Visit (unrecogniz ed section and content) Reason Comments Post-Op Visit Reason Comments Repeat Pap Reason Comments Abnormal Pap Reason Comments Insurance Authorization GENOTROPIN 0.4/0 .25ML SYRG Reason Comments Medication Problem osilodrostat (ISTURI SA) 10 mg tablet Reason Comments Recheck Reason Comments Medication Question Isturisa Reason Comments Refill Request Reason Onset Date Comments Refill Request 07/16/2022 Reason Comments Insurance Authorization Isturisa 5mg and 10 mg Reason Comments Opened In Error Reason Comments Lab Orders URINE FREE CORTISOL BY LC-MS/MS Reason Comments Insurance Authorization ISTURISTA Reason Comments Insurance Authorization Inturista Reason Comments Medication Problem ISTURISA Reason Comments Insurance Authorization somatropin (MARITA TROPIN) 0.6 mg/0.25 mL injection Reason Comments Insurance Authorization somatropin (MARITA TROPIN) 0.6 mg/0.25 mL injection Approval Reason Comments Appointment Reason Comments Pituitary Problem Reason Comments Follow Up Reason Comments Insurance Authorization Semaglutide, sherrie ght loss, (WEGOVY) 0.25 mg/0.5 mL pen injector [INSURANCE] Reason Comments Insurance Authorization Care Teams (unrecognized sec tion and content) Branch Assistant Relationship Specialty Start Date End Date Erasmo Dey [address] [place] [address] PCP - General Family Practice 06/02/20 Branch Assistant Relationship Specialty Start Date End Date Erasmo Dey [address] [place] [address] PCP - General Family Practice 06/02/20 Branch Assistant Relationship Specialty Start Date End Date Erasmo Dey [address] [place] [address] PCP - General Family Practice 06/02/20 Branch Assistant Relationship Specialty Start Date End Date Erasmo Dey [address] [place] [address] PCP - General Family Practice 06/02/20 Branch Assistant Relationship Specialty Start Date End Date Erasmo Dey [address] [place] [address] PCP - General Family Practice 06/02/20 Branch Assistant Relationship Specialty Start Date End Date Erasmo Dey [address] [place] [address] PCP - General Family Practice 06/02/20 Branch Assistant Relationship Specialty Start Date End Date Erasmo Dey [address] [place] [address] PCP - General Family Medicine 06/02/20 Branch Assistant Relationship Specialty Start Date End Date Erasmo Dey [address] [place] [address] PCP - General Family Medicine 06/02/20 Branch Assistant Relationship Specialty Start Date End Date Erasmo Dey [address] [place] [address] PCP - General Family Medicine 06/02/20 Branch Assistant Relationship Specialty Start Date End Date Erasmo Dey [address] [place] [address] PCP - General Family Medicine 06/02/20 Branch Assistant Relationship Specialty Start Date End Date Erasmo Dey [address] [place] [address] PCP - General Family Medicine 06/02/20 Branch Assistant Relationship Specialty Start Date End Date Erasmo Dey [address] [place] [address] PCP - General Family Medicine 06/02/20 Branch Assistant Relationship Specialty Start Date End Date Erasmo Dey [address] [place] [address] PCP - General Family Medicine 06/02/20 Branch Assistant Relationship Specialty Start Date End Date Erasmo Dey [address] [place] [address] PCP - General Family Medicine 06/02/20 Branch Assistant Relationship Specialty Start Date End Date Erasmo Dey [address] [place] [address] PCP - General Family Medicine 06/02/20 Branch Assistant Relationship Specialty Start Date End Date Jonnathanjennie Erasmo Cristy [address] [place] [address] PCP - General Family Medicine 06/02/20 Branch Assistant Relationship Specialty Start Date End Date Erasmo Dey [address] [place] [address] PCP - General Family Medicine 06/02/20 Branch Assistant Relationship Specialty Start Date End Date Erasmo Dey [address] [place] [address] PCP - General Family Medicine 06/02/20 Branch Assistant Relationship Specialty Start Date End Date Erasmo Dey [address] [place] [address] PCP - General Family Medicine 06/02/20 Branch Assistant Relationship Specialty Start Date End Date Erasmo Dey [address] [place] [address] PCP - General Family Medicine 06/02/20 Branch Assistant Relationship Specialty Start Date End Date Erasmo Dey [address] [place] [address] PCP - General Family Medicine 06/02/20 Branch Assistant Relationship Specialty Start Date End Date Erasmo Dey [address] [place] [address] PCP - General Family Medicine 06/02/20 Branch Assistant Relationship Specialty Start Date End Date Erasmo Dey [address] [place] [address] PCP - General Family Medicine 06/02/20 Branch Assistant Relationship Specialty Start Date End Date Erasmo Dey [address] [place] [address] PCP - General Family Medicine 06/02/20 FOR RECORDS PERTAINING TO PATIENTS WHO ARE OR HAVE BEEN ENROLLED IN A CHEMICAL DEPENDENCY/SUBSTANCEABUSE PROGRAM, SOME INFORMATION MAY BE OMITTED. This clinical summary was aggregated from multiple sources. Caution should be exercised in using it in the provision of clinical care. This summary normalizes information from multiple sources, and as a consequence, information in this document may materially change the coding, format and clinical context of patient data. In addition, data may be omitted in some cases. CLINICAL DECISIONS SHOULD BE BASED ON THE PRIMARY CLINICAL RECORDS. [facility] [employer] provides no warranty or guarantee of the accuracy or completeness of information in this document.
--- NOTE | 2023-07-30 21:59 | ECG_ITS ---
The [facility] Test Date: 2023-07-30 Pat Name: SARAH MATTHEWS Department: Room: - Gender: Female [employer]or: : 1985 Requested By: HEMAL DEY Order Number: [id number] Reading MD: LELIA STAUFFER Measurements Intervals Dawson Rate: 118 P: 55 OK: 166 QRS: 92 QRSD: 90 T: 54 QT: 320 QTc: 390 Interpretive Statements 1120 Sinus tachycardia 2420 RSR (QR) in lead V1/V2, consistent with right ventricular conduction delay 7102 Moderate right axis deviation 8102 Low QRS voltage in chest leads 9140 abnormal rhythm ECG No previous ECG available for comparison Electronically Signed On 07-31-2023 6:56:08 EST by LELIA STAUFFER
--- NOTE | 2023-07-30 22:07 | XR_ITS ---
The [address] [address] Patient Name: SARAH MATTHEWS MRN: [id number] date: 1985 Sex: F Assigned Patient Location: ER Current Patient Location: ER Accession/Order Number: [id number] Exam Date: 07/30/2023 22:36 Report Date: 07/30/2023 23:50 At the request of: REYNA MARKER Procedure: XR chest 2V EXAM: XR chest 2V HISTORY: SOB for one day with nonproductive cough. COMPARISON: Chest x-ray, 06/21/2023. TECHNIQUE: Frontal and lateral chest x-rays. FINDINGS: The heart, mediastinum and pulmonary vascularity are within normal limits. The lungs and pleural spaces are clear. The bony thorax is intact. XR/XR chest 2V IMPRESSION: Nonacute chest. Electronically authenticated by: QUINCY LOZANO Date: 07/30/2023 23:50
[2023-07-30 22:15] LABS: Basophils Absolute Auto 0.1 10^3/uL (0.0-0.1); Basophils Percent Auto 0.5 % (0.2-2.0); Eosinophils Absolute Auto 0.3 10^3/uL (0.0-0.7); Eosinophils Percent Auto 1.2 % (0.9-7.0); Hemoglobin 12.2 g/dL (12.0-16.0); Immature Granulocytes Abs Auto 0.16 10^3/uL (0.00-0.03); Immature Granulocytes Pct Auto 0.8 % (0.0-0.5); Lymphocytes Absolute Auto 2.9 10^3/uL (1.2-3.8); Lymphocytes Percent Auto 13.9 % (20.5-60.0); Mean Corpuscular Hemoglobin 29.3 pg (26.7-34.0); Mean Corpuscular Volume 88.9 fL (81.0-99.0); Mean Platelet Volume 10.4 fL (9.5-13.5); Monocytes Absolute Auto 0.7 10^3/uL (0.3-0.8); Monocytes Percent Auto 3.2 % (1.7-12.0); Neutrophils Absolute Auto 17.1 10^3/uL (1.4-6.5); Neutrophils Percent Auto 80.4 % (43.0-75.0); Platelet Count 279 10^3/uL (150-450); Red Blood Count 4.16 10^6/uL (4.20-5.40); Red Cell Distribution Width 13.7 % (11.0-15.0); White Blood Count 21.2 10^3/uL (4.0-11.0)
--- NOTE | 2023-07-30 22:18 | ED_ITS ---
HPI - SOB/Dyspnea General Chief Complaint: Shortness of Breath/Dyspnea Stated Complaint: Shortness of Breath Time Seen by Provider: 07/30/23 22:04 Source: patient Mode of arrival: walk-in History of Present Illness HPI Narrative: This 44-year-old female, nonsmoker with a history of hay and polycystic ovarian syndrome presents for evaluation of dry cough with shortness of breath and pain with trying to take a deep breath starting this morning. She has had some chills and sweats. She denies any dizziness or syncope. In June she was treated for an upper respiratory and with the Zithromax. She states her cough started improving after that and she has been feeling well until earlier today. She denies any nausea vomiting or diarrhea. She has no abdominal pain or back pain. She does get some swelling of her feet and ankles when she is on her feet for an extended period of time but does not have any calf pain or swelling. She states she has been using her albuterol inhaler without significant improvement. She feels like she cannot get a good breath in due to the pain in her anterior chest with deep breathing. MD elicited complaint: shortness of breath, cough and pain with inspiration Onset (ago): day(s) (1) Related Data Home Medications Medication Instructions Recorded Confirmed buspirone 15 mg tablet mg 07/30/23 desogestrel 0.15 mg-ethinyl tab PO DAILY 07/30/23 estradiol 0.03 mg tablet (Apri) lamotrigine 100 mg tablet 100 mg PO DAILY 07/30/23 07/30/23 lamotrigine 25 mg tablet 100 mg PO DAILY 07/30/23 07/30/23 osilodrostat 10 mg tablet 10 mg PO BID 07/30/23 07/30/23 paroxetine HCl 20 mg tablet (Paxil) 20 mg PO DAILY 07/30/23 07/30/23 Previous Rx's Medication Instructions Recorded azithromycin 250 mg tablet See Rx Instructions PO .COMPLEX #6 06/21/23 (Zithromax Z-Dimas) tabs benzonatate 200 mg capsule 200 mg PO TID PRN cough #10 caps 06/21/23 prednisone 50 mg tablet 50 mg PO DAILY 3 days #3 tabs 06/21/23 Allergies Allergy/AdvReac Type Severity Reaction Status Date / Time No Known Drug Allergies Allergy Verified 06/21/23 15:05 Review of Systems ROS Status of ROS 10 or more systems reviewed and unremark able except as noted in history and below [facility] Social History Smoking status: Never smoker Exam Narrative Exam Narrative: Nurses note and vital signs reviewed and patient is not hypoxic. Her blood pressure is elevated at 163/106 and she is tachycardic with a pulse of 123 General: Obese female resting can't gland the stretcher, occasional harsh cough, no respiratory distress Skin: Warm, dry, no pallor noted. There is no rash noted. Head: Normocephalic, atraumatic Eye: Normal conjunctiva, no drainage, EOMI. PERRL Ears, Nose, Mouth, and Throat: oral mucosa is moist. Nares patent. Cardiovascular: Regular Rate and RhythmS1 and S2, tachycardic at 116 during exam, pulses are brisk and equal bilaterally Respiratory: Cage and moist cough, lungs are clear with good air entry, there is no wheezing rhonchi or rales appreciated, patient is speaking in complete sentences, pulse ox is normal at 96 percent on room air Back: non-tender, no CVA tenderness bilaterally to percussion. GI: Normal bowel sounds, no tenderness to palpation, no masses appreciated. No rebound, guarding, or rigidity noted. Musculoskeletal: The patient has no evidence of calf tenderness, no pitting edema, symmetrical pulses noted bilaterally Neurological: A&O x4, normal speech Psychiatric: Cooperative Constitutional Vital Signs, click to edit/add: Last Vital Signs Temp 98.3 F 07/30/23 21:53 Pulse 111 H 07/30/23 23:29 Resp 18 07/30/23 23:29 BP 124/79 07/31/23 01:01 Pulse Ox 96 07/31/23 01:01 O2 Del Method Room Air 07/30/23 23:29 Course Vital Signs Vital signs: Vital Signs Temperature 98.3 F 07/30/23 21:53 Pulse Rate 123 H 07/30/23 21:53 Respiratory Rate 18 07/30/23 21:53 Blood Pressure 163/106 H 07/30/23 21:53 Pulse Oximetry 96 07/30/23 21:53 Oxygen Delivery Method Room Air 07/30/23 21:53 Temperature 98.3 F 07/30/23 21:53 Pulse Rate 111 H 07/30/23 23:29 Respiratory Rate 18 07/30/23 23:29 Blood Pressure 124/79 07/31/23 01:01 Pulse Oximetry 96 07/31/23 01:01 Oxygen Delivery Method Room Air 07/30/23 23:29 MDM - SOB/Dyspnea MDM Narrative Medical decision making narrative: His 38-year-old female presents for evaluation of cough with pain in her chest with coughing and breathing. She does not smoke. She has a history of pots and polycystic ovarian syndrome. She has had some chills and sweats. She denies any nausea vomiting or diarrhea. She denies the possibility of . She was noted to be tachycardic upon arrival, EKG done upon arrival was of sinus tachycardia at 118 beats for minute. An IV was placed and she was medicated with IV fluids, Solu-Medrol, and given a breathing treatment. Routine labs are reviewed. She has a white count of 21.2. She has a normal hemoglobin. Electrolytes are normal with the exception of a mildly elevated creatinine at 1.07. Troponin and d-dimer are normal. X-ray of the chest is negative for acute findings. COVID and Influenza testing are negative. She was re-evaluated after her treatment and still has pain with inspiration, there are no wheezing or rhonchi appreciated. She was given 15mg of IV toradol for the pleuritic chest pain and a respiratory panel and CTA of the chest was ordered to rule out any additional findings. Etiology of the chest is negative for pulmonary embolism or acute consolidating pneumonia. It does show some groundglass infiltrates in the left Upper and lower lobes of the lungs. This may be causing her shortness of breath tachycardia and dyspnea. She does look better and appears to be having less discomfort at this time. Her pulse has come down 109. States this is normal for her. She will be medicated for atypical pneumonia with doxycycline, Bromfed DM for the cough and given a Medrol Dosepak to use at home. She has albuterol at home and denies that she needs refills for this medication. Her respiratory panel is negative for all of the pathogens that are included in the panel. Medical Records Medical records narrative: The [address] [address] [address] Scan Report Signed Patient: SARAH MATTHEWS MR#: [id number] : 1985 Acct:[id number] Age/Sex: 38 / F ADM Date: 07/30/23 Loc: ER Attending Dr: Ordering Physician: Herminia Willson Date of Service: 07/31/23 Procedure(s): CT angio chest Accession Number(s): [id number] cc: Erasmo Tovar M.D.~ The [place] [id number] Patient Name: SARAH MATTHEWS MRN: [facility]:[id number] date: 1985 Sex: F Assigned Patient Location: ER Current Patient Location: ER Accession/Order Number: [id number] Exam Date: 07/31/2023 00:27 Report Date: 07/31/2023 00:52 At the request of: HERMINIA WILLSON Procedure: CT angio chest EXAM: CT angio chest HISTORY: SOB, tachycardia COMPARISON: Chest x-ray, 07/30/2023. TECHNIQUE: IV contrast enhanced CTA imaging the chest was performed using 100 mL of Omnipaque 350 intravenous contrast. Sagittal and coronal reconstructions are provided. Dose reduction techniques were achieved by using automated exposure control and/or adjustment of mA and/or kV according to patient size and/or use of iterative reconstruction technique. FINDINGS: There is suboptimal enhancement of the pulmonary arteries measuring 190 Hounsfield units on image 34. No acute pulmonary embolism is seen. The heart is top normal in size. There is no pericardial effusion. The thoracic aorta and arch vessels are unremarkable. There is no dissection or aneurysm. The thyroid gland appears normal. Several mildly prominent but nonenlarged mediastinal nodes are present. There is some motion artifact degrading the lungs. Mild ground-glass opacity in the left lower lobe and posterior left upper lobe favors hypoventilation. No focal infiltrate, pulmonary edema, pleural effusion or pneumothorax is seen. There is hepatosplenomegaly with diffuse hepatic steatosis, incompletely evaluated on the last images of this chest CT scan. The imaged upper abdomen is otherwise unremarkable. The bony thorax appears intact. CT/CT angio chest IMPRESSION: 1. No acute pulmonary embolism, aortic dissection, or other acute cardiopulmonary findings. 2. Hepatosplenomegaly with diffuse hepatic steatosis. Electronically authenticated by: QUINCY LOZANO Date: 07/31/2023 00:52 Lab Data Labs: Lab Results 07/30/23 07/30/23 07/30/23 Range/Units 22:07 22:26 23:19 WBC 21.2 H (4.0-11.0) 10^3/uL RBC 4.16 L (4.20-5.40) 10^6/uL Hgb 12.2 (12.0-16.0) g/dL Hct 37.0 (36.0-48.0) % MCV 88.9 (81.0-99.0) fL MCH 29.3 (26.7-34.0) pg MCHC 33.0 (29.9-35.2) g/dL RDW 13.7 (11.0-15.0) % Plt Count 279 (150-450) 10^3/uL MPV 10.4 (9.5-13.5) fL Neut % (Auto) 80.4 H (43.0-75.0) % Lymph % (Auto) 13.9 L (20.5-60.0) % [place] % (Auto) 3.2 (1.7-12.0) % Eos % (Auto) 1.2 (0.9-7.0) % Baso % (Auto) 0.5 (0.2-2.0) % Neut # (Auto) 17.1 H (1.4-6.5) 10^3/uL Lymph # (Auto) 2.9 (1.2-3.8) 10^3/uL [place] # (Auto) 0.7 (0.3-0.8) 10^3/uL Eos # (Auto) 0.3 (0.0-0.7) 10^3/uL Baso # (Auto) 0.1 (0.0-0.1) 10^3/uL Abs Immat Gran (auto) 0.16 H (0.00-0.03) 10^3/uL Imm/Tot Granulo (auto) 0.8 H (0.0-0.5) % D-Dimer <0.19 (<=0.59) mg/L FEU Sodium 141 (136-145) mmol/L Potassium 4.0 (3.5-5.1) mmol/L Chloride 102 (98-107) mmol/L Carbon Dioxide 23.3 (21.0-32.0) mmol/L Anion Gap 19.7 BUN 11.0 (7.0-18.0) mg/dL Creatinine 1.07 H (0.55-1.02) mg/dL Est GFR ( Amer) >60 (>=60) Est GFR (Non-Af Amer) 58 L (>=60) BUN/Creatinine Ratio 10.3 Glucose 115 H (74-106) mg/dL Calcium 9.2 (8.5-10.1) mg/dL Total Bilirubin 0.5 (0.2-1.0) mg/dL AST 53 H (15-37) U/L ALT 45 (14-59) U/L Alkaline Phosphatase 115 (46-116) U/L Troponin I High Sens 5.2 (4.0-51.3) pg/mL NT-Pro-B Natriuret Pep 63.0 (<=450.0) pg/mL Total Protein 8.3 H (6.4-8.2) g/dL Albumin 3.5 (3.4-5.0) g/dL Globulin 4.8 g/dL Albumin/Globulin Ratio 0.7 Urine HCG, Qual Negative (NEGATIVE) Adenovirus (PCR) Not detected (NOT DETECTE) C. pneumoniae DNA (PCR) Not detected (NOT DETECTE) Coronavirus Type OC43 Not detected (NOT DETECTE) Coronavirus Type HKU1 Not detected (NOT DETECTE) Coronavirus Type 229E Not detected (NOT DETECTE) Coronavirus Type NL63 Not detected (NOT DETECTE) Human Metapneumovir PCR Not detected (NOT DETECTE) Influenza Type A Ag Negative Influenza Type B Ag Negative M. pneumoniae (PCR) Not detected (NOT DETECTE) Parainfluenza PCR Not detected (NOT DETECTE) Parainfluenza 2 (PCR) Not detected (NOT DETECTE) Parainfluenza 3 (PCR) Not detected (NOT DETECTE) Parainfluenza 4 (PCR) Not detected (NOT DETECTE) RSV (RT-PCR) Not detected (NOT DETECTE) Entero/Rhino (PCR) Not detected (NOT DETECTE) SARS-CoV-2 (PCR) Not detected (NOT DETECTE) SARS-CoV-2 Ag (CV2AG) Negative (NEGATIVE) Bordetella pertussis (PCR) Not detected (NOT DETECTE) B parapertussis DNA PCR Not detected (NOT DETECTE) Influenza Type A (PCR) Not detected (NOT DETECTE) Influenza Type B (PCR) Not detected (NOT DETECTE) ECG Data Attestation: I personally reviewed and interpreted this ECG as follows: (Sinus tachycardia at 118 beats for minute, right axis, normal intervals, no acute ST segment elevation or T-wave inversion) Discharge Plan Discharge Chief Complaint: Shortness of Breath/Dyspnea Clinical Impression: Upper respiratory infection, Atypical pneumonia Patient Disposition: Home, Self-Care Time of Disposition Decision: 01:17 Condition: Good Prescriptions / Home Meds: No Action prednisone 50 mg tablet 50 mg PO DAILY 3 Days Qty: 3 0RF Hold Instructions: dc benzonatate 200 mg capsule 200 mg PO TID PRN (Reason: cough) Qty: 10 0RF Hold Instructions: dc azithromycin [Zithromax Z-Dimas] 250 mg tablet See Rx Instructions .ROUTE .COMPLEX Qty: 6 0RF Hold Instructions: dc Rx Instructions: For 250 mg dose pack: take 500 mg today (day 1), then 250 mg for 4 days (days 2-5) paroxetine HCl [Paxil] 20 mg tablet 20 mg PO DAILY desogestrel-ethinyl estradiol [Apri] 0.15-0.03 mg tablet PO DAILY buspirone 15 mg tablet osilodrostat 10 mg tablet 10 mg PO BID Patient Comments: patient takes 15mg lamotrigine 100 mg tablet 100 mg PO DAILY lamotrigine 25 mg tablet 100 mg PO DAILY Instructions: Upper Respiratory Infection (ED), Community Acquired Pneumonia (ED) Stand Alone Forms: Portal Instructions Referrals: Erasmo Tovar MD [Primary Care Provider] - 1 week
--- NOTE | 2023-07-30 22:19 | PC.NURSE ---
Pt states she started feeling short of breath when she woke up this morning, worsening over the day. States she has pain with inspiration. Ekg, labs obtained.
[2023-07-30] MEDS: 0.9 % SODIUM CHLORIDE 1,000 ML 1000 ML IV (22:24)
[2023-07-30 22:33] LABS: Alanine Aminotransferase 45 U/L (14-59); Albumin Globulin Ratio 0.7; Albumin Level 3.5 g/dL (3.4-5.0); Alkaline Phosphatase 115 U/L (46-116); Anion Gap 19.7; Aspartate Amino Transferase 53 U/L (15-37); BUN Creatinine Ratio 10.3; Bilirubin Total 0.5 mg/dL (0.2-1.0); Calcium 9.2 mg/dL (8.5-10.1); Carbon Dioxide 23.3 mmol/L (21.0-32.0); Chloride 102 mmol/L (98-107); D Dimer <0.19 mg/L FEU (<=0.59); Estimated GFR (African America >60 (>=60); Estimated GFR (Non-African Ame 58 (>=60); Globulin 4.8 g/dL; Glucose 115 mg/dL (74-106); Sodium 141 mmol/L (136-145); Total Protein 8.3 g/dL (6.4-8.2)
[2023-07-30 22:40] LABS: Troponin I High Sensitivity 5.2 pg/mL (4.0-51.3)
[2023-07-30 22:43] LABS: Influenza Virus A Antigen Negative; Influenza Virus B Antigen Negative; Internal Control Within Normal Limits; SARS-CoV-2 Ag NEGATIVE (NEGATIVE)
[2023-07-30] MEDS: METHYLPREDNISOLONE SOD SUCC PF 125 MG/2 ML VIAL IVP (23:17)
[2023-07-30] MEDS: IPRATROPIUM/ALBUTEROL SULFATE 3 ML AMPUL.NEB IH (23:20)
[2023-07-30 23:28] LABS: HCG Qualitative Urine* NEGATIVE (NEGATIVE)
[2023-07-31] VITALS (9 sets, daily range): BP systolic 124–125; BP diastolic 73–79; O2SAT 96–97
--- NOTE | 2023-07-31 00:07 | CT_ITS ---
The [address] [address] Patient Name: SARAH MATTHEWS MRN: [id number] date: 1985 Sex: F Assigned Patient Location: ER Current Patient Location: Accession/Order Number: [id number] Exam Date: 07/31/2023 00:27 Report Date: 07/31/2023 00:52 At the request of: REYNA MARKER Procedure: CT angio chest EXAM: CT angio chest HISTORY: SOB, tachycardia COMPARISON: Chest x-ray, 07/30/2023. TECHNIQUE: IV contrast enhanced CTA imaging the chest was performed using 100 mL of Omnipaque 350 intravenous contrast. Sagittal and coronal reconstructions are provided. Dose reduction techniques were achieved by using automated exposure control and/or adjustment of mA and/or kV according to patient size and/or use of iterative reconstruction technique. FINDINGS: There is suboptimal enhancement of the pulmonary arteries measuring 190 Hounsfield units on image 34. No acute pulmonary embolism is seen. The heart is top normal in size. There is no pericardial effusion. The thoracic aorta and arch vessels are unremarkable. There is no dissection or aneurysm. The thyroid gland appears normal. Several mildly prominent but nonenlarged mediastinal nodes are present. There is some motion artifact degrading the lungs. Mild ground-glass opacity in the left lower lobe and posterior left upper lobe favors hypoventilation. No focal infiltrate, pulmonary edema, pleural effusion or pneumothorax is seen. There is hepatosplenomegaly with diffuse hepatic steatosis, incompletely evaluated on the last images of this chest CT scan. The imaged upper abdomen is otherwise unremarkable. The bony thorax appears intact. CT/CT angio chest IMPRESSION: 1. No acute pulmonary embolism, aortic dissection, or other acute cardiopulmonary findings. 2. Hepatosplenomegaly with diffuse hepatic steatosis. Electronically authenticated by: QUINCY LOZANO Date: 07/31/2023 00:52
[2023-07-31 00:14] LABS: Adenovirus NOT DETECTED (NOT DETECTE); Bordetella parapertussis NOT DETECTED (NOT DETECTE); Coronavirus 229E NOT DETECTED (NOT DETECTE); Coronavirus HKU1 NOT DETECTED (NOT DETECTE); Coronavirus NL63 NOT DETECTED (NOT DETECTE); Coronavirus OC43 NOT DETECTED (NOT DETECTE); Human Metapneumovirus NOT DETECTED (NOT DETECTE); Human Rhinovirus/Enterovirus NOT DETECTED (NOT DETECTE); Influenza A NOT DETECTED (NOT DETECTE); Influenza B NOT DETECTED (NOT DETECTE); Mycoplasma pneumoniae NOT DETECTED (NOT DETECTE); Parainfluenza Virus 1 NOT DETECTED (NOT DETECTE); Parainfluenza Virus 2 NOT DETECTED (NOT DETECTE); Parainfluenza Virus 3 NOT DETECTED (NOT DETECTE); Parainfluenza Virus 4 NOT DETECTED (NOT DETECTE); Respiratory Syncytial Virus NOT DETECTED (NOT DETECTE); SARS-CoV-2 NOT DETECTED (NOT DETECTE)
[2023-07-31] MEDS: KETOROLAC TROMETHAMINE 30 MG/ML VIAL 15 MG IVP (00:38)
[2023-07-31] MEDS: DOXYCYCLINE MONOHYDRATE 100 MG CAPSULE PO (01:31)
--- NOTE | 2023-07-31 01:40 | PC.NURSE ---
Discussed discharge paperwork with pt. All questions answered. Scripts sent home with pt. Pt verbalized understanding to follow up with PCP this week. Pt ambulated off unit in stable condition.
== END 2023-07-31 01:43 | disposition home or self-care (01) ==
PROVIDERS: Emergency Provider Emergency Medicine; PCP Family Medicine
DX: J18.9 Pneumonia, unspecified organism (principal); J06.9 Acute upper respiratory infection, unspecified; G90.A Postural orthostatic tachycardia syndrome [POTS]; E28.2 Polycystic ovarian syndrome; Z79.899 Other long term (current) drug therapy; E66.9 Obesity, unspecified; Z20.822 Contact with and (suspected) exposure to COVID-19
CPT/HCPCS: 0202U; 36415; 71046; 71275; 80053; 81001; 83880; 84484; 84703; 85025; 85378; 87804; 87811; 93005; 94640; 96374; 96375; 99285; J1885; J2930; Q9967

== ENCOUNTER 2024-06-23 21:23 | Emergency (ER) | payer OTHER, SELFPAY ==
[2024-06-23] VITALS (15 sets, daily range): BP systolic 117–133; BP diastolic 65–88; PULSE 103–111; TEMP 37.7–37.8; O2SAT 96–100; BMI 40.7
--- NOTE | 2024-06-23 21:48 | ECG_ITS ---
The [facility] Test Date: 2024-06-23 Pat Name: SARAH BOATENG Department: Room: - Gender: Female [employer]ter: : 1985 Requested By: HEMAL DEY Order Number: [id number] Reading MD: LELIA STAUFFER Measurements Intervals [employer] Rate: 92 P: 51 PA: 152 QRS: 38 QRSD: 98 T: 59 QT: 344 QTc: 394 Interpretive Statements 1100 Sinus rhythm 1108 Marked sinus arrhythmia 2420 RSR (QR) in lead V1/V2, consistent with right ventricular conduction delay 8102 Low QRS voltage in chest leads 9130 borderline ECG No previous ECG available for comparison Electronically Signed On 06-24-2024 6:47:05 EST by LELIA STAUFFER
--- NOTE | 2024-06-23 21:48 | XR_ITS ---
The [address] [address] Patient Name: SARAH BOATENG MRN: [id number] date: 1985 Sex: F Assigned Patient Location: ER Current Patient Location: ER Accession/Order Number: [id number] Exam Date: 06/23/2024 22:00 Report Date: 06/23/2024 22:25 At the request of: MARY BURGESS Procedure: XR chest 1V CXR HISTORY: Cough with shortness of breath. COMPARISON: 06/21/2023 chest x-ray TECHNIQUE: 1 view chest submitted for review. FINDINGS: The lungs are adequately expanded without evidence of acute infiltrate or effusion. The cardiac silhouette measures within normal. Pulmonary vascularity is unremarkable. Osseous structures do not demonstrate any acute abnormality. XR/XR chest 1V IMPRESSION: No plain film evidence for acute cardiopulmonary disease. Electronically authenticated by: FLORES SARAVIA Date: 06/23/2024 22:25
--- NOTE | 2024-06-23 21:48 | ED.URI1 ---
HPI - URI/Sore Throat General Chief Complaint: Upper Respiratory Infection Stated Complaint: SHORTNESS OF BREATH Time Seen by Provider: 06/23/24 21:42 Source: patient Limitations: no limitations History of Present Illness HPI Narrative: 39-year-old female presents to the emergency department for a chief complaint of difficulty breathing for 3 weeks. She has had a dry, nonproductive cough during that time. No known fever. She has been using her nebulizer and inhaler. No vomiting or diarrhea. Related Data Home Medications ?Medication ?Instructions ?Recorded ?Confirmed buspirone 15 mg tablet mg 07/30/23 desogestrel 0.15 mg-ethinyl tab PO DAILY 07/30/23 estradiol 0.03 mg tablet (Apri) lamotrigine 100 mg tablet 100 mg PO DAILY 07/30/23 07/30/23 lamotrigine 25 mg tablet 100 mg PO DAILY 07/30/23 07/30/23 osilodrostat 10 mg tablet 10 mg PO BID 07/30/23 07/30/23 paroxetine HCl 20 mg tablet (Paxil) 20 mg PO DAILY 07/30/23 07/30/23 Previous Rx's ?Medication ?Instructions ?Recorded azithromycin 250 mg tablet See Rx Instructions PO .COMPLEX #6 06/21/23 (Zithromax Z-Dimas) tabs benzonatate 200 mg capsule 200 mg PO TID PRN cough #10 caps 06/21/23 prednisone 50 mg tablet 50 mg PO DAILY 3 days #3 tabs 06/21/23 benzonatate 100 mg capsule 100 mg PO TID PRN cough #20 caps 06/23/24 doxycycline hyclate 100 mg capsule 100 mg PO BID 10 days #20 caps 06/23/24 Allergies Allergy/AdvReac Type Severity Reaction Status Date / Time No Known Drug Allergies Allergy Verified 06/23/24 21:46 Review of Systems ROS Narrative A ten point review of systems is negative except as noted above. PFSH PFSH Social History Smoking status: Never smoker Little interest or pleasure in doing things: not at all Feeling down, depressed, or hopeless: not at all Exam Narrative Exam Narrative: Nurses note and vital signs reviewed and patient is not hypoxic. General: The patient appears well and in no apparent distress. Patient is resting comfortably on cart. Skin: Warm, dry, no pallor noted. There is no rash noted. Head: Normocephalic, atraumatic Eye: Normal conjunctiva, no drainage Ears, Nose, Mouth, and Throat: oral mucosa is moist. Nares patent. Cardiovascular: Regular Rate and Rhythm Respiratory: Patient is in no distress, no accessory muscle use, lungs are clear to auscultation, no wheezing, rales or rhonchi. Good air movement present Back: non-tender GI: Soft and nontender Musculoskeletal: The patient has no evidence of calf tenderness, no pitting edema, symmetrical pulses noted bilaterally Neurological: A&O, normal speech Psychiatric: Cooperative Constitutional Vital Signs, click to edit/add: Last Vital Signs Temp 100.0 F 06/23/24 21:43 Pulse 107 H 06/23/24 22:45 Resp 18 06/23/24 22:45 BP 130/83 06/23/24 21:43 Pulse Ox 98 06/23/24 22:45 O2 Del Method Room Air 06/23/24 22:45 Course Vital Signs Vital signs: Vital Signs Temperature 100.0 F 06/23/24 21:43 Pulse Rate 111 H 06/23/24 21:43 Respiratory Rate 19 06/23/24 21:43 Blood Pressure 130/83 06/23/24 21:43 Pulse Oximetry 98 06/23/24 21:43 Temperature 100.0 F 06/23/24 21:43 Pulse Rate 107 H 06/23/24 22:45 Respiratory Rate 18 06/23/24 22:45 Blood Pressure 130/83 06/23/24 21:43 Pulse Oximetry 98 06/23/24 22:45 Oxygen Delivery Method Room Air 06/23/24 22:45 MDM - URI/Sore Throat MDM Narrative Medical decision making narrative: The chest x-ray shows no infiltrate in the COVID and influenza test are negative. She had a temperature of 100 degrees when she arrived. She is given her first dose of doxycycline here and prescribed doxycycline and Tessalon. Treatment diagnosis and follow-up were discussed with the patient. Differential Diagnosis Differential diagnosis: Likely upper respiratory infection, viral infection, influenza and other (COVID, pneumonia) Lab Data Attestation: I reviewed the patient's lab results. Labs: Lab Results 06/23/24 06/23/24 Range/Units 22:19 22:25 WBC 11.6 H (4.0-11.0) 10^3/uL RBC 3.58 L (4.20-5.40) 10^6/uL Hgb 10.2 L (12.0-16.0) g/dL Hct 30.4 L (36.0-48.0) % MCV 84.9 (81.0-99.0) fL MCH 28.5 (26.7-34.0) pg MCHC 33.6 (29.9-35.2) g/dL RDW 16.4 H (11.0-15.0) % Plt Count 238 (150-450) 10^3/uL MPV 10.4 (9.5-13.5) fL Sodium 134 L (136-145) mmol/L Potassium 3.2 L (3.5-5.1) mmol/L Chloride 97 L (98-107) mmol/L Carbon Dioxide 25.7 (21.0-32.0) mmol/L Anion Gap 14.5 BUN 9.0 (7.0-18.0) mg/dL Creatinine 1.10 H (0.55-1.02) mg/dL Est GFR ( Amer) >60 (>=60 mL/min/1.73m^2) Est GFR (Non-Af Amer) 56 L (>=60 mL/min/1.73m^2) BUN/Creatinine Ratio 8.2 Glucose 104 (74-106) mg/dL Calcium 8.8 (8.5-10.1) mg/dL Influenza Type A Ag Negative Influenza Type B Ag Negative SARS-CoV-2 Ag (CV2AG) Negative (NEGATIVE) Imaging Data Chest x-ray: Radiologist's impression: ITS Impressions Chest X-Ray 06/23/24 21:48 IMPRESSION: No plain film evidence for acute cardiopulmonary disease. Electronically authenticated by: FLORES SARAVIA Date: 06/23/2024 22:25 Discharge Plan Discharge Chief Complaint: Upper Respiratory Infection Clinical Impression: Upper respiratory infection Patient Disposition: Home, Self-Care Time of Disposition Decision: 23:14 Condition: Good Mode of Transportation: Private Vehicle Prescriptions / Home Meds: New doxycycline hyclate 100 mg capsule 100 mg PO BID 10 Days Qty: 20 0RF benzonatate 100 mg capsule 100 mg PO TID PRN (Reason: cough) Qty: 20 0RF No Action prednisone 50 mg tablet 50 mg PO DAILY 3 Days Qty: 3 0RF benzonatate 200 mg capsule 200 mg PO TID PRN (Reason: cough) Qty: 10 0RF azithromycin [Zithromax Z-Dimas] 250 mg tablet See Rx Instructions .ROUTE .COMPLEX Qty: 6 0RF Rx Instructions: For 250 mg dose pack: take 500 mg today (day 1), then 250 mg for 4 days (days 2-5) paroxetine HCl [Paxil] 20 mg tablet 20 mg PO DAILY desogestrel-ethinyl estradiol [Apri] 0.15-0.03 mg tablet PO DAILY buspirone 15 mg tablet osilodrostat 10 mg tablet 10 mg PO BID Patient Comments: patient takes 15mg lamotrigine 100 mg tablet 100 mg PO DAILY lamotrigine 25 mg tablet 100 mg PO DAILY Print Language: Kinyarwanda Instructions: Upper Respiratory Infection (ED) Referrals: Erasmo Tovar MD [Primary Care Provider] - 1 week
--- NOTE | 2024-06-23 21:50 | PC.NURSE ---
this patient complains of dry cough for the past 3 weeks, this is the first visit by a provider for this cough. this patient shows no sign of distress
[2024-06-23 22:34] LABS: Hematocrit 30.4 % (36.0-48.0); Hemoglobin 10.2 g/dL (12.0-16.0); Mean Corpuscular HGB Conc 33.6 g/dL (29.9-35.2); Mean Corpuscular Hemoglobin 28.5 pg (26.7-34.0); Mean Corpuscular Volume 84.9 fL (81.0-99.0); Mean Platelet Volume 10.4 fL (9.5-13.5); Platelet Count 238 10^3/uL (150-450); Red Blood Count 3.58 10^6/uL (4.20-5.40); Red Cell Distribution Width 16.4 % (11.0-15.0); White Blood Count 11.6 10^3/uL (4.0-11.0)
[2024-06-23] MEDS: ACETAMINOPHEN 325 MG TABLET 650 MG PO (22:35)
[2024-06-23] MEDS: ALBUTEROL SULFATE 2.5 MG/3 ML VIAL NEB IH (22:43)
[2024-06-23 22:44] LABS: Anion Gap 14.5; BUN Creatinine Ratio 8.2; Calcium 8.8 mg/dL (8.5-10.1); Carbon Dioxide 25.7 mmol/L (21.0-32.0); Chloride 97 mmol/L (98-107); Estimated GFR (African America >60 (>=60 mL/min/1.73m^2); Estimated GFR (Non-African Ame 56 (>=60 mL/min/1.73m^2); Glucose 104 mg/dL (74-106); Potassium 3.2 mmol/L (3.5-5.1); Sodium 134 mmol/L (136-145)
[2024-06-23 22:55] LABS: Influenza Virus A Antigen Negative; Influenza Virus B Antigen Negative; Internal Control Within Normal Limits; SARS-CoV-2 Ag NEGATIVE (NEGATIVE)
[2024-06-23 23:09] LABS: Lymphocytes Absolute Manual 4.75 10^3/uL (1.20-3.80); Segmented Neut Absolute Manual 6.03 10^3/uL (1.4-6.5)
[2024-06-23 23:10] LABS: Atypical Lymphocytes Abs Man 0.34; Eosinophils Absolute Manual 0.34 10^3/uL (0.00-0.70); Monocytes Absolute Manual 0.11 10^3/uL (0.30-0.80)
--- NOTE | 2024-06-23 23:35 | PC.NURSE ---
patient updated just waiting on that pharmacy verified
[2024-06-23] MEDS: DOXYCYCLINE MONOHYDRATE 100 MG CAPSULE PO (23:48)
--- NOTE | 2024-06-23 23:53 | PC.NURSE ---
i gave this patient verbal and paper discharge orders and she voices yes to understanding these. at time of discharge this patient voices no concerns and shows no signs of distress.
== END 2024-06-23 23:55 | disposition home or self-care (01) ==
PROVIDERS: Emergency Provider Emergency Medicine; PCP Family Medicine
DX: J06.9 Acute upper respiratory infection, unspecified (principal); R50.9 Fever, unspecified
CPT/HCPCS: 36415; 71045; 80048; 85007; 85027; 87804; 87811; 93005; 94640; 99285

== ENCOUNTER 2024-10-21 09:51 | Outpatient (OUT) | payer OTHER, SELFPAY ==
[2024-10-21 10:26] LABS: Basophils Percent Auto 0.7 % (0.2-2.0); Eosinophils Absolute Auto 0.2 10^3/uL (0.0-0.7); Eosinophils Percent Auto 2.8 % (0.9-7.0); Hematocrit 33.2 % (36.0-48.0); Immature Granulocytes Abs Auto 0.04 10^3/uL (0.00-0.03); Immature Granulocytes Pct Auto 0.7 % (0.0-0.5); Lymphocytes Absolute Auto 2.7 10^3/uL (1.2-3.8); Mean Corpuscular HGB Conc 33.1 g/dL (29.9-35.2); Mean Corpuscular Hemoglobin 28.3 pg (26.7-34.0); Mean Corpuscular Volume 85.3 fL (81.0-99.0); Mean Platelet Volume 10.2 fL (9.5-13.5); Monocytes Absolute Auto 0.3 10^3/uL (0.3-0.8); Monocytes Percent Auto 5.4 % (1.7-12.0); Neutrophils Absolute Auto 2.9 10^3/uL (1.4-6.5); Neutrophils Percent Auto 46.4 % (43.0-75.0); Platelet Count 200 10^3/uL (150-450); Red Blood Count 3.89 10^6/uL (4.20-5.40); Red Cell Distribution Width 13.9 % (11.0-15.0); White Blood Count 6.1 10^3/uL (4.0-11.0)
[2024-10-21 10:54] LABS: Alanine Aminotransferase 40 U/L (14-59); Albumin Globulin Ratio 0.8; Albumin Level 3.5 g/dL (3.4-5.0); Alkaline Phosphatase 102 U/L (46-116); Aspartate Amino Transferase 29 U/L (15-37); BUN Creatinine Ratio 10.7; Bilirubin Direct 0.2 mg/dL (0.0-0.2); Bilirubin Total 0.6 mg/dL (0.2-1.0); Carbon Dioxide 25.9 mmol/L (21.0-32.0); Chloride 103 mmol/L (98-107); Cholesterol 188 mg/dL (<=200); Estimated GFR (African America >60 (>=60 mL/min/1.73m^2); Estimated GFR (Non-African Ame >60 (>=60 mL/min/1.73m^2); Globulin 4.3 g/dL; Glucose 100 mg/dL (74-106); HDL Cholesterol 27 mg/dL (40-60); Potassium 3.9 mmol/L (3.5-5.1); Sodium 137 mmol/L (136-145); Thyroid Stimulating Hormone 0.413 uIU/mL (0.358-3.740); Total Protein 7.8 g/dL (6.4-8.2); Triglycerides 598 mg/dL (<=150); VLDL CHOLESTEROL 119.6 mg/dL
[2024-10-21 11:04] LABS: Estimated Average Glucose 108 mg/dL; Glycohemoglobin A1C 5.4 % (4.5-6.2)
[2024-10-21 11:08] LABS: LDL Cholesterol Direct 75 mg/dL
[2024-10-21 11:17] LABS: Free T4 0.88 ng/dL (0.76-1.46)
== END 2024-10-21 09:52 | disposition home or self-care (01) ==
LOC: LAB 09:53
PROVIDERS: PCP Family Medicine; Visit Provider Family Medicine
DX: Z00.00 Encounter for general adult medical examination without abnormal findings (principal)
CPT/HCPCS: 36415; 80048; 80061; 80076; 83036; 83721; 84439; 84443; 85025